=== PATIENT | female | born 1945 | race Caucasian/White ===

== ENCOUNTER 2022-12-24 08:38 | Outpatient (OUT) | payer MEDICARE, OTHER, SELFPAY ==
--- NOTE | 2022-12-24 08:55 | XR_ITS ---
The [address] [address] Patient Name: CHRIS LEVY MRN: [id number] date: 1945 Sex: F Assigned Patient Location: [facility] Current Patient Location: [facility] Accession/Order Number: [id number] Exam Date: 12/24/2022 08:55 Report Date: 12/24/2022 10:53 At the request of: NEVA FERRARI Procedure: XR knee WALTER 4V EXAM: XR knee WALTER 4V HISTORY: Bilateral Knee Pain COMPARISON: None. FINDINGS: 4 views of the right knee were obtained. There are postsurgical findings of total knee arthroplasty. Joint space is symmetric. The patella is appropriately positioned. There is corticated ossific density near the inferior margin of patella. No acute fracture or dislocation. There is evidence of joint effusion. 4 views of the left knee were obtained. There is near [id number] narrowing of the medial compartment with marginal osteophyte formation and subchondral sclerosis. Less pronounced degenerative changes noted in the lateral and patellofemoral compartments. No acute fracture or dislocation. No significant joint effusion. IMPRESSION: Postsurgical findings of right total knee arthroplasty. Corticated density along the inferior patella may represent age-indeterminate fracture. Right joint effusion. Severe osteoarthritis of the left knee with medial compartment predominance. Electronically authenticated by: THAO RODRIGES Date: 12/24/2022 10:53
== END 2022-12-24 08:39 | disposition home or self-care (01) ==
LOC: RAD 08:42
PROVIDERS: PCP Internal Medicine; Visit Provider Internal Medicine
DX: M25.561 Pain in right knee (principal); M25.562 Pain in left knee; Z96.651 Presence of right artificial knee joint; M25.461 Effusion, right knee; M17.12 Unilateral primary osteoarthritis, left knee; M22.91 Unspecified disorder of patella, right knee
CPT/HCPCS: 73564

== ENCOUNTER 2023-02-27 11:01 | Outpatient (OUT) | payer MEDICARE, OTHER, SELFPAY ==
[2023-02-27 11:26] LABS: Basophils Percent Auto 0.1 % (0.2-2.0); Hematocrit 39.9 % (36.0-48.0); Hemoglobin 13.5 g/dL (12.0-16.0); Immature Granulocytes Abs Auto 0.03 10^3/uL (0.00-0.03); Immature Granulocytes Pct Auto 0.3 % (0.0-0.5); Lymphocytes Absolute Auto 1.2 10^3/uL (1.2-3.8); Lymphocytes Percent Auto 11.8 % (20.5-60.0); Mean Corpuscular HGB Conc 33.8 g/dL (29.9-35.2); Mean Corpuscular Hemoglobin 30.7 pg (26.7-34.0); Mean Corpuscular Volume 90.7 fL (81.0-99.0); Mean Platelet Volume 10.5 fL (9.5-13.5); Monocytes Absolute Auto 0.4 10^3/uL (0.3-0.8); Monocytes Percent Auto 3.4 % (1.7-12.0); Neutrophils Absolute Auto 8.8 10^3/uL (1.4-6.5); Neutrophils Percent Auto 84.4 % (43.0-75.0); Platelet Count 230 10^3/uL (150-450); Red Cell Distribution Width 12.8 % (11.0-15.0); White Blood Count 10.4 10^3/uL (4.0-11.0)
[2023-02-27 12:30] LABS: Alanine Aminotransferase 28 U/L (14-59); Albumin Globulin Ratio 0.9; Albumin Level 4.2 g/dL (3.4-5.0); Alkaline Phosphatase 55 U/L (46-116); Anion Gap 13.1; Aspartate Amino Transferase 21 U/L (15-37); BUN Creatinine Ratio 26.4; Bilirubin Total 0.3 mg/dL (0.2-1.0); Calcium 9.2 mg/dL (8.5-10.1); Carbon Dioxide 26.3 mmol/L (21.0-32.0); Chloride 100 mmol/L (98-107); Estimated GFR (African America >60 (>=60); Estimated GFR (Non-African Ame >60 (>=60); Globulin 4.5 g/dL; Glucose 103 mg/dL (74-106); Potassium 3.4 mmol/L (3.5-5.1); Sodium 136 mmol/L (136-145); Thyroid Stimulating Hormone 0.337 uIU/mL (0.358-3.740); Total Protein 8.7 g/dL (6.4-8.2)
[2023-02-27 18:29] LABS: Free T4 1.05 ng/dL (0.76-1.46)
[2023-03-01 07:07] LABS: Triiodothyronine (T3) 76 ng/dL (71-180)
== END 2023-02-27 11:02 | disposition home or self-care (01) ==
LOC: LAB 11:03
PROVIDERS: PCP Internal Medicine; Visit Provider Internal Medicine
DX: R53.83 Other fatigue (principal); I10 Essential (primary) hypertension; Z79.899 Other long term (current) drug therapy; M81.0 Age-related osteoporosis without current pathological fracture; E55.9 Vitamin D deficiency, unspecified; R79.89 Other specified abnormal findings of blood chemistry
CPT/HCPCS: 36415; 80053; 82306; 84439; 84443; 84480; 85025

== ENCOUNTER 2023-04-16 09:04 | Outpatient (OUT) | payer MEDICARE, OTHER, SELFPAY ==
[2023-04-16 09:56] LABS: Thyroid Stimulating Hormone 1.279 uIU/mL (0.358-3.740)
[2023-04-16 10:22] LABS: Free T4 1.07 ng/dL (0.76-1.46)
[2023-04-17 08:12] LABS: Triiodothyronine (T3) 115 ng/dL (71-180)
== END 2023-04-16 09:05 | disposition home or self-care (01) ==
LOC: LAB 09:06
PROVIDERS: PCP Internal Medicine; Visit Provider Internal Medicine
DX: R79.89 Other specified abnormal findings of blood chemistry (principal)
CPT/HCPCS: 36415; 84439; 84443; 84480

== ENCOUNTER 2024-01-21 09:03 | Outpatient (OUT) | payer MEDICARE, OTHER, SELFPAY ==
--- OUTSIDE RECORDS SUMMARY | 2024-01-21 09:16 | XMS_ITS | CCD ---
Author Organization [facility] Care Team Providers Care Experience Specialist Name Role Phone Sam Rangel Unavailable Unavailable Cr Ferrari Unavailable Unavailable BALL, DR HOOKS Attending Unavailable BALL, DR HOOKS Consulting Unavailable BALL, DR HOOKS Primary Care Unavailable BALL, DR HOOKS Admitting Unavailable BALL, DR HOOKS Consulting Unavailable VONDA, DR HOOKS Primary Care Unavailable VONDA, DR HOOKS Admitting Unavailable BALL, DR HOOKS Attending Unavailable BALL, DR HOOKS Attending Unavailable BALL, DR HOOKS Consulting Unavailable BALL, DR HOOKS Primary Care Unavailable VONDA, DR HOOKS Admitting Unavailable BALL, DR HOOKS Referring Unavailable Cr Ferrari DO E Unavailable Vonda YANCEY, Cr E Unavailable IMTIAZ TILLEY Referring Unavailable BEST GUTIERREZ Attending Unavailab gonzalo TILLEY, IMTIAZ Referring Unavailable JAREK, IMTIAZ Referring Unavailable TRES PEDRAZA Attending Unavailable BEST GUTIERREZ Referring Unavailab Cr Rowan Unavailable Cr Ferrari Unavailable CR FERRARI Referring Unavailable CR FERRARI Referring Unavailable Cr Ferrari DO Primary Care Provider BRENNAN MELISSA Attending Unavailable BRENNAN MELISSA Referring Unavailable DO Cr Ferrari Primary Care Provider [phone] MD Brennan Melissa Attending Provider Cr Ferrari DO Primary Care Provider Katelynn Coker RN Unavailable Unavailable THAO JUSTIN Referring Unavailable THAO JUSTIN Attending Unavailable Vonda, Dr. Cr Mcdaniel Primary Care UnaBrennan Nolasco Attending Unavailable Brennan Melissa Admyeyo Unavailable Cr Ferrari Primary Care Unavailable THAO JUSTIN Admitting Unavailable THAO JUSTIN Attending Unavailable CR FERRARI Primary Care Unavailable THAO JUSTIN Referring Unavailable CR FERRARI Primary Care Unavailable BRANDON DONIS Referring Unavailable CR FERRARI Primary Care Unavailable BRANDON DONIS Referring Unavailable CR FERRARI Primary Care Unavailable Cr Ferrari DO Primary Care Provider THAO JUSTIN Attending Unavailable CR FERRARI Primary Care Unavailable BRANDON DONIS Referring Unavailable BRANDON DONIS Attending Unavailable CR FERRARI Primary Care Unavailable BRANDON DONIS Referring Unavailable CR FERRARI Primary Care Unavailable Medications Current Medications Medication Drug Class(es) Dates Sig (Normalized) Sig (Original) acetaminophen 325 mg oral tablet (3 sources) Start: 10-07-2023 take 1 tablet by mouth every six hours as needed Start: 10-07-2023 End: 10-07-2023 take 975 mg by mouth once as needed for pain 975 mg, oral, Once, On Thu10/07/23 at 0645, For 1 dose, Preprocedure, PREOP, If ordered PRN for pain, nurse is permitted to administer this medication for higher pain scores based on patient preference? Yes Start: 10-06-2023 End: 11-06-2023 take 2 tablets by mouth every six hours for pain acetaminophen (Tylenol Extra Strength) 500 mg tablet Indications: Unilateral primary osteoarthritis, left knee Take 2 tablets (1,000 mg) by mouth every 6 hours if needed for mild pain (1 - 3). 240 tablet 10/06/2023 11/06/2023 Active aluminum hydroxide 40 mg/ml / magnesium hydroxide 40 mg/ml / simethicone 4 mg/ml oral suspension (1 source) Start: 10-07-2023 take 20 mL by mouth every four hours as needed 20 mL, oral, Every 4 hours PRN, indigestion, heartburn, Starting on Thu10/07/23 at 1941 amLODIPine 5 mg oral tablet (20 sources) Dihydropyridine Calcium Channel Carmen Start: 02-04-2016 take 5 mg by mouth once daily Amlodipine Active 5 MG PO Daily October 23, 2017 12:00am Start: 02-04-2016 amLODIPine Bes ylate 5 MG Oral Tablet Quantity: 30 Refills: 0 Ordered: 04-Feb-2016 DO Start : 04-Feb-2016 Active take 1 tablet by susanne every twenty-four hours amLODIPine Besylate 10 MG 1 tablet Orally Once a day Active ascorbic acid 500 mg oral tablet (5 sources) Vitamin C take 1 tablet by mouth once daily ascorbic acid (Vitamin C) 500 mg tablet Take 1 tablet (500 mg) by mouth once daily. Active aspirin 81 mg delayed release oral tablet (2 sources) Platelet Aggregation Inhibitor, Nonsteroidal Anti-inflammatory Drug Start: 10-06-2023 End: 11-06-2023 take 81 mg by mouth twice daily 81 mg, oral, 2 times daily, First dose on Thu10/07/23 at 2100, Phase II/On Unit, Do not crush, chew, or split. benzocaine 15 mg / menthol 3.6 mg oral lozenge (1 source) Standardized Chemical Allergen Start: 10-07-2023 bisacodyl 10 mg rectal suppository (2 sources) Stimulant Laxative Start: 10-07-2023 take 10 mg rectal route every twenty-four hours as needed Start: 10-07-2023 take 1 tablet by mouth every t wenty-four hours as needed chlorhexidine gluconate 1.2 mg/ml mouthwash (3 sources) Start: 09-30-2023 End: 10-08-2023 chlorhexidine (Peridex) 0.12 % solution Indications: Preoperative testing Use 15 mL in the mouth or throat if needed (pre operative 15ml swish and spit the night befor and morning of surgery) for up to 2 doses. 30 mL 09/30/2023 10/08/2023 Discontinued (Stop Taking at Discharge) cholecalciferol 0.025 mg oral capsule (5 sources) Vitamin D take 1 capsule by mouth once daily cholecalciferol (Vitamin D-3) 25 MCG (1000 UT) capsule Take 1 capsule (25 mcg) by mouth once daily. Active cyclobenzaprine hydrochloride 10 mg oral tablet (1 source) Muscle Relaxant Start: 10-07-2023 1 ml denosumab 60 mg/ml prefilled syringe (20 sources) RANK Ligand Inhibitor denosumab (Prolia) 60 mg/mL syringe Inject 1 mL (60 mg total) under the skin every 6 months. 2023 Active denosumab (PROLI A SUBCUTANEOUS) Inject subcutaneously. 0 Active Comment on above: Inject subcutaneousl y. diphenhydrAMINE (1 source) Histamine-1 Receptor Antagonist Start: 2023 take 12.5 mg intravenously every six hours as needed docusate sodium 100 mg oral capsule (2 sources) Start: 2023 End: 2023 take 100 mg by mouth twice daily for constipation 100 mg, oral, 2 times daily, First dose on Thu10/07/23 at 2100, Phase II/On Unit, Bowel Regimen - for prevention of constipation Hold for loose stools estrogens, conjugated (long term) 0.625 mg/ml vaginal cream (20 sources) Estrogen Start: 2023 Conjugated Estrogens (Premarin) 0.625 mg/gram cream Active 0.625 MG VAGINAL Twice a Week January 15, 2024 12:00am Start: 09-03-2015 Premarin 0.625 MG/GM Vaginal Cream Quantity: 30 Refills: 0 Start : 03-Sep-2015 Active Start: 09-03-2015 Premarin 0.625 MG/GM Vaginal Cream Quantity: 30 Refills: 0 Ordered: 03-Sep-2015 DO Start : 03-Sep-2015 Active Premarin 0.625 M G/GM Vaginal Active estrogens, conju gated (PREMARIN VAGINAL) Use vaginally. 0 Active Comment on above: Use vaginally. 0.5 ml HYDROmorphone hydrochloride 1 mg/ml prefilled syringe (1 source) Opioid Agonist Start: 10-07-19 ibuprofen 200 mg oral tablet (3 sources) Nonsteroidal Anti-inflammatory Drug End: 10-08-19 take 2 tablets by mouth every six hours as needed ibuprofen 200 mg tablet Take 2 tablets (400 mg) by mouth every 6 hours if needed for mild pain (1 - 3). 10/08/2023 Discontinued (Stop Taking at Discharge) melatonin 3 mg oral tablet (1 source) Start: 10-07-19 take 3 mg by mouth once daily as needed for sleep 3 mg, oral, Nightly PRN, sleep, Starting on Thu10/07/23 at 1941 Metoclopramide (1 source) Dopamine-2 Receptor Antagonist Start: 10-07-19 take 1 tablet by mouth every six hours as needed metoclopramide (Reglan) tablet 10 mg Naloxone (1 source) Opioid Antagonist Start: 10-07-19 ondansetron ODT (Zofran-ODT) disintegrating tablet 4 mg (1 source) Start: 10-07-19 take 1 tablet by mouth every eight hours as needed ondansetron ODT (Zofran-ODT) disintegrating tablet 4 mg oxyCODONE hydrochloride 5 mg oral tablet (4 sources) Opioid Agonist Start: 10-07-19 take 1 tablet by mouth every four hours as needed 2.5 mg, oral, Every 4 hours PRN, pain moderate (4-6), first line, Starting on Thu10/07/23 at 1608, Phase II/On Unit, If ordered PRN for pain, nurse is permitted to administer this medication for higher pain scores based on patient preference? Yes Start: 10-07-2023 take 1 tablet by susanne th every four hours as needed 5 mg, oral, Every 4 hours PRN, pain severe (7-10), first line, Starting on Thu10/07/23 at 1607, Phase II/On Unit, If ordered PRN for pain, nurse is permitted to administer this medication for higher pain scores based on patient preference? Yes Start: 10-07-2023 End: 10-07-2023 take 10 mg by mouth once 10 mg, oral, Once, On Thu at 0645, For 1 dose, Preprocedure, Do not crush, chew, or split. Start: 10-06-2023 End: 10-14-2023 take 1 tablet by mouth every six hours for pain oxyCODONE (Roxicodone) 5 mg immediate release tablet Indications: Unilateral primary osteoarthritis, left knee Take 1 tablet (5 mg) by mouth every 6 hours if needed for severe pain (7 - 10) for up to 7 days. 28 tablet 10/06/2023 10/14/2023 Active oxygen (O2) therapy (1 source) Start: 10-07-2023 pantoprazole 40 mg delayed release oral tablet (3 sources) Proton Pump Inhibitor Start: 10-06-2023 End: 11-06-2023 take 1 tablet by mouth once daily pantoprazole (ProtoNix) 40 mg EC tablet Indications: Unilateral primary osteoarthritis, left knee Take 1 tablet (40 mg) by mouth once daily. Do not crush, chew, or split. 30 tablet 10/06/2023 Active paxlovid (300/100) 20 x 150 mg & 10 x 100mg tablet therapy pack (1 source) Start: 06-23-2023 Paxlovid (300/ 100) 20 x 150 MG & 10 x 100MG as directed Orally bid for 5 days Jun, Active polyethylene glycol 3350 24266 mg powder for oral solution (4 sources) Osmotic Laxative Start: 10-08-2023 17 g, oral, D aily, First dose on Thu10/08/23 at 0900, Phase II/On Unit, Bowel Regimen - for prevention of constipation. Start: 10-06-2023 polyethylene g lycol (Glycolax, Miralax) 17 gram/dose powder Indications: Unilateral primary osteoarthritis, left knee Mix 1 cap (17g) into 8 ounces of fluid and drink by mouth once daily. 238 g 10/06/2023 Active polyvinyl alcohol 0.014 ml/ml / povidone 6 mg/ml ophthalmic solution (1 source) Start: 10-07-2023 1 drop, Both E yes, As needed, dry eyes, Starting on Thu10/07/23 at 1941 predniSONE 1 mg oral tablet (15 sources) Start: 03-26-2022 End: 09-30-2023 take 4 tablets by mouth once daily, then take 3 tablets by mouth once daily, then take 2 tablets by mouth once daily, then take 1 tablet by mouth once daily predniSONE (DELTASONE) 1 mg tablet Take 4 tablets by mouth once daily for 30 days, THEN 3 tablets once daily for 30 days, THEN 2 tablets once daily for 30 days, THEN 1 tablet once daily. 300 tablet 0 03/26/2022 07/24/2022 Active Start: 02-04-2022 End: 09-30-2023 take 3 tablets by mouth once daily, then take 2.5 tablets by mouth once daily, then take 2 tablets by mouth once daily, then take 1.5 tablets by mouth once daily, then take 1 tablet by mouth once daily predniSONE (DELTASONE) 5 mg tablet Indications: Polymyalgia rheumatica (HCC) Take 3 tablets by mouth once daily for 7 days, THEN 2.5 tablets once daily for 7 days, THEN 2 tablets once daily for 7 days, THEN 1.5 tablets once daily for 7 days, THEN 1 tablet once daily. 93 tablet 0 02/04/2022 04/03/2022 Active Start: 01-14-2021 End: 01-15-2024 take 20 mg by mouth twice daily Prednisone Discontinue d 20 MG PO Twice daily 10 January 14, 2021 12:00am January 15, 2024 10:23am End: 09-30-2023 predniSONE (Deltasone) 10 mg tablet 09/30/2023 Discontinued (Therapy completed) Comment on above: Take 3 tablets by [facility] once daily for 7 days, THEN 2.5 tablets once daily for 7 days, THEN 2 tablets once daily for 7 days, THEN 1.5 tablets once daily for 7 days, THEN 1 tablet once daily. Take 4 tablets by [facility] once daily for 30 days, THEN 3 tablets once daily for 30 days, THEN 2 tablets once daily for 30 days, THEN 1 tablet once daily. TAKE 4 TABLETS BY [facility] ONCE DAILY FOR 30 DAYS,THEN TAKE 3 TABS ONCE DAILY FOR 30 DAYS, THEN TAKE 2 TABS ONCE DAILY FOR 30 DAYS, THEN TAKE 1 TAB ONCE DAILY FOR 30 DAYS 72 hr scopolamine 0.0139 mg/hr transdermal system (1 source) Anticholinergic Start: 10-07-19 End: 10-10-19 1 patch, transdermal, Administer over 72 Hours, Every 72 hours, First dose on Thu10/07/23 at 0645, For 1 dose, Preprocedure, PREOP Apply to hairless area of skin behind the ear. simethicone 80 mg chewable tablet (1 source) Start: 10-07-19 take 80 mg by mouth four times daily as needed 80 mg, oral, 4 times daily PRN, flatulence, Starting on Thu10/07/23 at 1940 sodium chloride 0.111 meq/ml nasal spray (1 source) Start: 10-07-19 1 spray, Each Nostril, As needed, congestion, Starting on Thu10/07/23 at 194 traMADol hydrochloride 50 mg oral tablet (1 source) Opioid Agonist Start: 10-06-19 End: 10-14-19 take 1 tablet by mouth every six hours for pain traMADol (Ultram) 50 mg tablet Indications: Unilateral primary osteoarthritis, left knee Take 1 tablet (50 mg) by mouth every 6 hours if needed for severe pain (7 - 10) for up to 7 days. 28 tablet 10/06/2023 10/14/2023 Active Completed/Discontinued Medications Medication Drug Class(es) Dates Sig (Normalized) Sig (Original) acetaminophen 325 mg / oxyCODONE hydrochloride 5 mg oral tablet (2 sources) Opioid Agonist Start: 10-29-2017 End: 11-05-2017 take 1 tablet by mouth every four to six hours Oxycodone-Acetamino phen (Percocet) 5-325 mg tablet Discontinued 1 - 2 TAB PO EVERY 4-6 HOURS 56 October 29, 2017 November 05, 2017 12:01am alendronic acid 70 mg oral tablet (4 sources) Bisphosphonate Start: 09-03-2015 Alendronate Sodium 70 MG Oral Tablet Quantity: 12 Refills: 0 Ordered: 03-Sep-2015 DO Start : 03-Sep-2015 Active Start: 09-03-2015 Alendronate So dium 70 MG Oral Tablet Quantity: 12 Refills: 0 Start : 03-Sep-2015 Active benzonatate 200 mg oral capsule (2 sources) Non-narcotic Antitussive Start: 08-08-2022 End: 09-30-2023 take 1 capsule by mouth three times daily benzonatate (Tessalon) 200 mg capsule Take 1 capsule 3 times a day by oral route. 08/08/2022 09/30/2023 Discontinued (Therapy completed) calcium chloride 0.0014 meq/ml / potassium chloride 0.004 meq/ml / sodium chloride 0.103 meq/ml / sodium lactate 0.028 meq/ml injectable solution (2 sources) Start: 10-07-2023 End: 10-08-2023 take 100 mL intravenously every hour 100 mL/hr, intravenous, Continuous, Starting on Thu10/07/23 at 1200, For 24 hours, Phase II/On Unit ceFAZolin 2000 mg injection (1 source) Cephalosporin Antibacterial Start: 10-07-2023 End: 10-08-2023 take 2 g intravenously every eight hours 2 g, intravenous, Administer over 30 Minutes, Every 8 hours, First dose on Thu10/07/23 at 1700, For 2 doses, Phase II/On Unit, Start 8 hours after pre-op dose given. premix bag, Dosing of this medication varies based on severity of illness. Does this patient have sepsis or concern for sepsis (probable or documented infection plus systemic manifestations of infection)? No, Suspected Indication (Select all that apply): Surgical Prophylaxis cephalexin 500 mg oral capsule (2 sources) Cephalosporin Antibacterial Start: 01-14-2021 End: 01-15-2024 take 1000 mg by mouth twice daily Cephalexin Discontinued 1000 MG PO Twice daily 40 January 14, 2021 12:00am January 15, 2024 10:23am diclofenac sodium 75 mg delayed release oral tablet (4 sources) Nonsteroidal Anti-inflammatory Drug Start: 09-05-2015 Diclofenac Sodium 75 MG Oral Tablet Delayed Release Quantity: 60 Refills: 0 Ordered: 05-Sep-2015 DO Start : 05-Sep-2015 Active Start: 09-05-2015 Diclofenac Sod ium 75 MG Oral Tablet Delayed Release Quantity: 60 Refills: 0 Start : 05-Sep-2015 Active 1 ml fentaNYL 0.05 mg/ml injection (1 source) Opioid Agonist Start: 10-07-2023 End: 10-07-2023 50 mcg, intravenous, Once as needed, pain for/from pre-op block, Starting on Thu10/07/23 at 0707, For 1 dose, Preprocedure hydrocortisone 25 mg/ml topical cream (2 sources) Corticosteroid End: 09-30-2023 hydrocortisone 2.5 % cream APPLY CREAM TOPICALLY TO AFFECTED AREA(S) THREE TIMES DAILY FOR 7 DAYS 09/30/2023 Discontinued (Therapy completed) 1 ml ketorolac tromethamine 15 mg/ml injection (1 source) Nonsteroidal Anti-inflammatory Drug, Cyclooxygenase Inhibitor Start: 10-07-2023 End: 10-08-2023 take 15 mg intravenously every six hours 15 mg, intravenous, Every 6 hours, First dose on Thu10/07/23 at 1200, For 4 doses, Phase II/On Unit, Do not administer within 6 hours of other NSAIDs (such as ibuprofen or naproxen). Lagevrio, EUA, 200 mg capsule (2 sources) Start: 08-08-2022 End: 09-30-2023 take 4 capsules by mouth every twelve hours Lagevrio, EUA, 200 mg capsule Take 4 capsules every 12 hours by oral route for 5 days. 08/08/2022 09/30/2023 Discontinued (Therapy completed) Start: 08-08-2022 take 4 capsules by m outh every twelve hours Lagevrio, EUA, 200 mg capsule Take 4 capsules every 12 hours by oral route for 5 days. 0 08/08/2022 Active Lidocaine (2 sources) Antiarrhythmic, Amide Local Anesthetic Start: 06-11-2023 End: 06-11-2023 lidocaine (Xylocaine) 10 mg/mL (1 %) injection 4 mL losartan potassium 25 mg oral tablet (4 sources) Angiotensin 2 Receptor Carmen Start: 10-26-2015 Losartan Potassium 2 5 MG Oral Tablet Quantity: 30 Refills: 0 Ordered: 26-Oct-2015 DO Start : 26-Oct-2015 Active Start: 10-26-2015 Losartan Potas sium 25 MG Oral Tablet Quantity: 30 Refills: 0 Start : 26-Oct-2015 Active meloxicam 7.5 mg oral tablet (2 sources) Nonsteroidal Anti-inflammatory Drug Start: 10-07-2023 End: 10-07-2023 take 7.5 mg by mouth once as needed for pain 7.5 mg, oral, Once, On Thu10/07/23 at 0645, For 1 dose, Preprocedure, PREOP, If ordered PRN for pain, nurse is permitted to administer this medication for higher pain scores based on patient preference? Yes Start: 10-06-2023 End: 11-06-2023 take 1 tablet by mouth once daily meloxicam (Mobic) 15 mg tablet Indications: Unilateral primary osteoarthritis, left knee Take 1 tablet (15 mg) by mouth once daily. 30 tablet 10/06/2023 11/06/2023 Active 5 ml midazolam 1 mg/ml injection (1 source) Benzodiazepine Start: 10-07-2023 End: 10-07-2023 2 mg, intravenous, Once, On Thu10/07/23 at 0730, For 1 dose, Preprocedure Start: 10-07-2023 End: 10-07-2023 2 mg, intravenous, Once, On Thu10/07/23 at 0730, For 1 dose, Preprocedure povidone-iodine 50 mg/ml topical solution (1 source) Antiseptic Start: 10-07-2023 End: 10-07-2023 Topical, Once, On Thu10/07/23 at 0645, For 1 dose, Preprocedure, Apply to both nostrils 1 hour prior to procedure. pregabalin 75 mg oral capsule (1 source) Start: 10-07-2023 End: 10-07-2023 take 75 mg by mouth once 75 mg, oral, Once, On Thu10/07/23 at 0645, For 1 dose, Preprocedure, PREOP tranexamic acid 650 mg oral tablet (1 source) Antifibrinolytic Agent Start: 10-07-2023 End: 10-07-2023 take 1 dose by mouth every six hours 1,950 mg, oral, Once, On Thu10/07/23 at 1600, For 1 dose, Recovery & On Unit, First dose administered 6 hours post procedure. Do not crush, chew, or split., Tranexamic Acid Indication: Surgical Prophylaxis: Orthopedic 1 ml triamcinolone acetonide 40 mg/ml injection (6 sources) Corticosteroid Start: 06-11-2023 End: 06-11-2023 triamcinolone acetonide (Kenalog-40) injection 1 mL Start: 11-16-2015 Triamcinolone Acetonide 0.025 % External Cream Quantity: 15 Refills: 0 Ordered: 16-Nov-2015 DO Start : 16-Nov-2015 Active Start: 11-16-2015 Triamcinolone Acetonide 0.025 % External Cream Quantity: 15 Refills: 0 Start : 16-Nov-2015 Active Problems Active Problems Problem Classification Problem Date Documented Da te Episodic/Chronic Diabetes mellitus without complication (2 sources) Hyperglycemia, unspecified; Translations: [Hyperglycemia, unspecified] Onset: 09-30-2023 Episodic Disorders of lipid metabolism (11 sources) Familial hypercholesterolemi a; Translations: [Hyperlipidemia, group A] Onset: 04-15-2021 Chronic Essential hypertension (16 sources) Essential (primary) hypertension; Translations: [Essential hypertension] Onset: 04-08-2021 Chronic Genitourinary symptoms and ill-defined conditions (1 source) Dysuria; Translations: [Dysuria] Onset: 09-23-2023 Episodic Malaise and fatigue (3 sources) Other fatigue; Translations: [Other malaise] Onset: 10-24-2021 Episodic Nutritional deficiencies (12 sources) Vitamin D deficiency, unspecified; Translations: [Vitamin D deficiency] Onset: 10-24-2021 Chronic Osteoarthritis (20 sources) Primary gonarthrosis, bilateral; Translations: [Osteoarthritis of left knee joint] Onset: 06-11-2023 Chronic Osteoporosis (12 sources) Osteoporosis; Translations: [Age-related osteoporosis without current pathological fracture] Chronic Other acquired deformities (10 sources) Flip legged; Translations: [Varus deformity, not elsewhere classified, left knee] Episodic Other acquired deformities (1 source) Varus deformity, not elsewhere classified, left knee Episodic Other aftercare (4 sources) Patient encounter status; Translations: [Aftercare following joint replacement] 11-17-2023 Chronic Other aftercare (2 sources) Aftercare following joint replacement surgery; Translations: [Aftercare following joint replacement surgery] Onset: 06-11-2023 Chronic Other aftercare (1 source) Long-term current use of systemic steroid; Translations: [half-way (current) use of systemic steroids] Episodic Other aftercare (1 source) Other oysterman (current) drug therapy Episodic Other connective tissue disease (12 sources) Polymyalgia rheumatica; Translations: [Polymyalgia rheumatica] Chronic Other connective tissue disease (1 source) Polymyalgia rheumatica; Translations: [Polymyalgia rheumatica (HCC)] Onset: 02-04-2022 Chronic Other connective tissue disease (11 sources) History of total knee arthroplasty; Translations: [Presence of right artificial knee joint] 10-07-2023 Chronic Other connective tissue disease (3 sources) Presence of right artificial knee joint; Translations: [Presence of right artificial knee joint] Onset: 06-11-2023 Chronic Other connective tissue disease (4 sources) Presence of left artificial knee joint; Translations: [Presence of left artificial knee joint] Onset: 10-07-2023 Chronic Other connective tissue disease (4 sources) Myalgia, unspecified site; Translations: [MYALGIA UNSPECIFIED SITE] Onset: 10-23-2021 Episodic Other connective tissue disease (10 sources) Muscle pain; Translations: [Myalgia, unspecified site] Episodic Other fractures (2 sources) Fracture of rib; Translations: [Fracture of one rib, unspecified side, initial encounter for closed fracture] 10-28-2017 Episodic Other injuries and conditions due to external causes (2 sources) Traumatic injury; Translations: [Injury, unspecified, initial encounter] 10-23-2017 Episodic Other nervous system disorders (1 source) Bilateral carpal tunnel syndrome; Translations: [Carpal tunnel syndrome, bilateral upper limbs] Chronic Other nervous system disorders (10 sources) Carpal tunnel syndrome; Translations: [Carpal tunnel syndrome, bilateral upper limbs] Chronic Other nervous system disorders (10 sources) Chronic pain; Translations: [Other chronic pain] Chronic Other nervous system disorders (1 source) Other chronic pain Chronic Other nervous system disorders (2 sources) Paresthesia of hand ; Translations: [Anesthesia of skin] Episodic Other non-traumatic joint disorders (2 sources) Arthritis of knee; Translations: [Arthritis of right knee] Chronic Other non-traumatic joint disorders (2 sources) Knee pain; Translations: [Bilateral knee pain] Episodic Other non-traumatic joint disorders (10 sources) Pain in left knee; Translations: [Pain in left knee] Episodic Other non-traumatic joint disorders (3 sources) Pain in right knee; Translations: [Bilateral knee pain] Episodic Other nutritional; endocrine; and metabolic disorders (1 source) Abnormal weight loss Episodic Other screening for suspected conditions (not mental disorders or infectious disease) (4 sources) Other specified abnormal findings of blood chemistry; Translations: [Encounter for screening mammogram for malignant neoplasm of breast] Episodic Pleurisy; pneumothorax; pulmonary collapse (2 sources) Left pneumothorax; Translations: [Pneumothorax, unspecified] 10-23-2017 Episodic Residual codes; unclassified (1 source) Asymptomatic menopausal state Episodic Skin and subcutaneous tissue infections (2 sources) Cellulitis; Translations: [Cellulitis, unspecified] 01-14-2021 Episodic Unclassified (7 sources) Patient has total joint replacement knee surgery Onset: 08-03-2023 08-03-2023 Unclassified (2 sources) Patient Education; Translations: [Patient Education] Onset: 09-30-2023 Unclassified (2 sources) Durable Medical Equipment; Translations: [Durable Medical Equipment] Onset: 09-30-2023 Past or Other Problems Problem Classification Problem Date Documented Da te Episodic/Chronic Other nervous system disorders (1 source) Anesthesia of skin; Translations: [Numbness and tingling in both hands] Onset: 03-05-2022 Episodic Other nervous system disorders (1 source) Paresthesia of skin; Translations: [Numbness and tingling in both hands] Onset: 03-05-2022 Episodic Poisoning by other medications and drugs (4 sources) Poisoning by vitamins, accidental (unintentional), initial encounter; Translations: [POISON VITAMINS ACC INITIAL ENCNTR] Onset: 11-06-2020 Episodic Unclassified (2 sources) Patient encounter status; Translations: [Aftercare following right knee joint replacement surgery] Viral infection (1 source) COVID-19 Results Test Name Value Interpretation Reference Range Facility XR KNEE LEFT 3 VIEWSon 11-18 XR KNEE LEFT 3 VIEWS Interpreted By: Leandro Trinidad, STUDY: XR KNEE LEFT 3 VIEWS; ; 11/19/2023 12:24 pm INDICATION: Signs/Symptoms:pain . COMPARISON: 09/30/2023 ACCESSION NUMBER(S): [id number] ORDERING CLINICIAN: BRANDON DONIS FINDINGS: Three views of the left knee. Total left knee arthroplasty. No perihardware lucency or fracture to suggest failure. Moderate suprapatellar joint effusion. No acute fracture. No dislocation IMPRESSION: Uncomplicated appearance of the total left knee arthroplasty. Moderate suprapatellar joint effusion. MACRO: None Signed by: Leandro Trinidad 11/20/2023 9:43 AM Dictation workstation: [id number] [facility] Basic metabolic 2000 panelon 10-08-2023 Anion gap [Moles/Vol] 10 mmol/L Normal 10-20 [facility] Comment on above: Performed By: #### 2 4321-2 #### JAMIN Crowe ([id number] [place] [address] [place] [address] Calcium [Mass/Vol] 8.6 mg/dL Normal 8.6-10.3 [facility] Comment on above: Performed By: #### 2 4321-2 #### JAMIN Crowe ([id number]) [facility] [place] [address] [address] [place] [address] Chloride [Moles/Vol] 102 mmol/L Normal 98-107 [facility] Comment on above: Performed By: #### 2 4321-2 #### JAMIN Crowe ([id number]) [facility] [address] [place] [address] CO2 [Moles/Vol] 27 mmol/L Normal 21-32 [facility] Comment on above: Performed By: #### 2 4321-2 #### JAMIN Crowe ([id number]) [facility] [place] [place] [address] Creatinine [Mass/Vol] 0.70 mg/dL Normal 0.50-1.05 [facility] Comment on above: Performed By: #### 2 4321-2 #### JAMIN Crowe ([id number]) [facility] ([facility] [address] [place] [address] Glomerular filtration rate/1.73 sq M.predicted 89 mL/min/1.73m*2 Normal >60 [facility] Comment on above: Result Comment: Calc ulations of estimated GFR are performed using the 2020 CKD-EPI Study Refit equation without the race variable for the IDMS-Traceable creatinine methods. https://jasn.asnjournals.org/content/early//ASN.06569 34979 Performed By: #### 2 4321-2 #### JAMIN Crowe ([id number]) [facility] ([facility] [address] [place] [address] Glucose [Mass/Vol] 107 mg/dL High 74-99 [facility] Comment on above: Performed By: #### 2 4321-2 #### JAMIN Crowe ([id number]) [facility] ([facility] [address] [place] [address] Potassium [Moles/Vol] 4.0 mmol/L Normal 3.5-5.3 [facility] Comment on above: Performed By: #### 2 4321-2 #### JAMIN Crowe ([id number]) [facility] ([facility] [address] [place] [address] Sodium [Moles/Vol] 135 mmol/L Low 136-145 [facility] Comment on above: Performed By: #### 2 4321-2 #### JAMIN Crowe ([id number]) [facility] ([facility] [address] [place] [address] Urea nitrogen [Mass/Vol] 20 mg/dL Normal 6-23 [facility] Comment on above: Performed By: #### 2 4321-2 #### JAMIN Crowe ([id number]) [facility] ([facility] [address] [place] [address] Anion gap [Moles/Vol] 10 mmol/L 10 - 20 mmol/L [facility] Calcium [Mass/Vol] 8.6 mg/dL 8.6 - 10. 3 mg/dL [facility] Chloride [Moles/Vol] 102 mmol/L 98 - 10 7 mmol/L [facility] CO2 [Moles/Vol] 27 mmol/L 21 - 32 mmol/L [facility] Creatinine [Mass/Vol] 0.70 mg/dL 0.50 - 1.05 mg/dL [facility] GFR/1.73 sq M.predicted among non-blacks MDRD (S/P/Bld) [Vol rate/Area] 89 mL/min/{1.73_m2} - PINF [facility] Comment on above: Calculations of mitchel mated GFR are performed using the 2020 CKD-EPI Study Refit equation without the race variable for the IDMS-Traceable creatinine methods. https://jasn.asnjournals.org/content/early/ASN.37764 46168 Glucose [Mass/Vol] 107 mg/dL High 74 - 99 mg/dL [facility] Interpretation and review of laboratory results Abnormal [facility] Potassium [Moles/Vol] 4.0 mmol/L 3.5 - 5.3 mmol/L [facility] Sodium [Moles/Vol] 135 mmol/L Low 136 - 145 mmol/L [facility] Urea nitrogen [Mass/Vol] 20 mg/dL 6 - 23 mg/dL [facility] CBC panel Auto (Bld)on 10-07 Erythrocyte distribution width (RBC) [Ratio] 12.5 % Normal 11.5-14.5 [facility] Comment on above: Performed By: #### 5 8410-2 #### JAMIN Crowe ([id number]) [facility] ([facility] [address] [place] [address] Hematocrit (Bld) [Volume fraction] 32.9 % Low 36.0-46.0 [facility] Comment on above: Performed By: #### 5 8410-2 #### JAMIN Crowe ([id number]) [facility] ([facility] [address] [place] [address] Hemoglobin (Bld) [Mass/Vol] 10.5 g/dL Low 12.0-16.0 [facility] Comment on above: Performed By: #### 5 8410-2 #### JAMIN Crowe ([id number]) [facility] ([place]) [address] [place] [address] MCH (RBC) [Entitic mass] 30.4 pg Normal 26.0-34.0 [facility] Comment on above: Performed By: #### 5 8410-2 #### JAMIN Crowe ([id number]) [facility] ([place]) [address] [place] [address] MCHC (RBC) [Mass/Vol] 31.9 g/dL Low 32.0-36.0 [facility] Comment on above: Performed By: #### 5 8410-2 #### JAMIN Crowe ([id number]) [facility] ([facility] [address] [place] [address] MCV (RBC) [Entitic vol] 95 fL Normal 80-100 [facility] Comment on above: Performed By: #### 5 8410-2 #### JAMIN Crowe ([id number]) [facility] ([facility] [address] [place] [address] Nucleated RBC/100 WBC (Bld) [Ratio] Normal [facility] Comment on above: Result Comment: Not Measured Performed By: #### 5 8410-2 #### JAMIN Crowe ([id number]) [facility] ([place]) [address] [place] [address] Platelets (Bld) [#/Vol] 153 x10*3/uL Normal 150-450 [facility] Comment on above: Performed By: #### 5 8410-2 #### JAMIN Crowe ([id number]) [facility] ([place]) [address] [place] [address] RBC (Bld) [#/Vol] 3.45 x10*6/uL Low 4.00-5.20 [facility] Comment on above: Performed By: #### 5 8410-2 #### JAMIN Crowe ([id number]) [facility] ([place]) [address] [place] [address] WBC (Bld) [#/Vol] 9.8 x10*3/uL Normal 4.4-11.3 [facility] Comment on above: Performed By: #### 5 8410-2 #### JAMIN Crowe ([id number]) [facility] ([place]) [address] [place] [address] Erythrocyte distribution width (RBC) [Ratio] 12.5 % 11.5 - 14.5 % [facility] Hematocrit (Bld) [Volume fraction] 32.9 % Low 36.0 - 46.0 % [facility] Hemoglobin (Bld) [Mass/Vol] 10.5 g/dL Low 12.0 - 16.0 g/dL [facility] Interpretation and review of laboratory results Abnormal [facility] MCH (RBC) [Entitic mass] 30.4 pg 26.0 - 34.0 pg [facility] MCHC (RBC) [Mass/Vol] 31.9 g/dL Low 32.0 - 36.0 g/dL [facility] MCV (RBC) [Entitic vol] 95 fL 80 - 100 fL [facility] Nucleated RBC/100 WBC (Bld) [Ratio] [facility] Comment on above: Not Measured Platelets (Bld) [#/Vol] 153 10*3/uL [facility] RBC (Bld) [#/Vol] 3.45 10*6/uL Low [facility] WBC (Bld) [#/Vol] 9.8 10*3/uL [facility] Basic metabolic 2000 panelon 09-30-2023 Anion gap [Moles/Vol] 13 mmol/L Normal 10-20 [facility] Comment on above: Performed By: #### 2 4321-2 #### JAMIN Crowe ([id number]) [facility] ([place]) [address] [place] [address] Calcium [Mass/Vol] 9.7 mg/dL Normal 8.6-10.3 [facility] Comment on above: Performed By: #### 2 4321-2 #### JAMIN Crowe ([id number]) [facility] ([place]) [address] [place] [address] Chloride [Moles/Vol] 103 mmol/L Normal 98-107 [facility] Comment on above: Performed By: #### 2 4321-2 #### JAMIN Crowe ([id number]) [facility] ([facility] [address] [place] [address] CO2 [Moles/Vol] 29 mmol/L Normal 21-32 [facility] Comment on above: Performed By: #### 2 432-2 #### JAMIN Crowe ([id number]) [facility] ([facility] [address] [place] [address] Creatinine [Mass/Vol] 0.62 mg/dL Normal 0.50-1.05 [facility] Comment on above: Performed By: #### 2 432-2 #### JAMIN Crowe ([id number]) [facility] ([facility] [address] [place] [address] GFR/1.73 sq M.predicted MDRD (S/P/Bld) [Vol rate/Area] mL/min/{1.73_m2} Normal >60 [facility] Comment on above: Result Comment: Calc ulations of estimated GFR are performed using the 2020 CKD-EPI Study Refit equation without the race variable for the IDMS-Traceable creatinine methods. https://jasn.asnjournals.org/content/early//ASN.85561 50426 Performed By: #### 2 4321-2 #### JAMIN Crowe ([id number]) [facility] ([place]) [address] [place] [address] Glucose [Mass/Vol] 93 mg/dL Normal 74-99 [facility] Comment on above: Performed By: #### 2 432-2 #### JAMIN Crowe ([id number]) [facility] ([place]) [address] [place] [address] Potassium [Moles/Vol] 4.3 mmol/L Normal 3.5-5.3 [facility] Comment on above: Performed By: #### 2 4321-2 #### JAMIN Crowe ([id number]) [facility] ([place]) [address] [place] [address] Sodium [Moles/Vol] 141 mmol/L Normal 136-145 [facility] Comment on above: Performed By: #### 2 4321-2 #### JAMIN Crowe ([id number]) [facility] ([place]) [address] [place] [address] Urea nitrogen [Mass/Vol] 16 mg/dL Normal 6-23 [facility] Comment on above: Performed By: #### 2 4321-2 #### JAMIN Crowe ([id number]) [facility] ([place]) [address] [place] [address] CBC W Auto Differential pane l (Bld)on 09-30-2023 Basophils (Bld) [#/Vol] 0.02 x10*3/uL Normal 0.00-0.10 [facility] Comment on above: Performed By: #### 5 7021-8 #### JAMIN Crowe ([id number]) [facility] ([place]) [address] [place] [address] Basophils/100 WBC (Bld) 0.3 % Normal 0.0-2.0 [facility] Comment on above: Performed By: #### 5 7021-8 #### JAMIN Crowe ([id number]) [facility] ([place]) [address] [place] [address] Eosinophils (Bld) [#/Vol] 0.03 x10*3/uL Normal 0.00-0.40 [facility] Comment on above: Performed By: #### 5 7021-8 #### JAMIN Crowe ([id number]) [facility] ([place]) [address] [place] [address] Eosinophils/100 WBC (Bld) 0.4 % Normal 0.0-6.0 [facility] Comment on above: Performed By: #### 5 7021-8 #### JAMIN Crowe ([id number]) [facility] ([facility] [address] [place] [address] Erythrocyte distribution width (RBC) [Ratio] 12.6 % Normal 11.5-14.5 [facility] Comment on above: Performed By: #### 5 7021-8 #### JAMIN Crowe ([id number]) [facility] ([facility] [address] [place] [address] Hematocrit (Bld) [Volume fraction] 41.0 % Normal 36.0-46.0 [facility] Comment on above: Performed By: #### 5 7021-8 #### JAMIN Crowe ([id number]) [facility] [address] [place], [place] [address] Hemoglobin (Bld) [Mass/Vol] 13.0 g/dL Normal 12.0-16.0 [facility] Comment on above: Performed By: #### 5 7021-8 #### JAMIN Crowe ([id number]) [facility] [place] [address] Immature granulocytes (Bld) [#/Vol] 0.00 x10*3/uL Normal 0.00-0.50 [facility] Comment on above: Performed By: #### 5 7021-8 #### JAMIN Crowe ([id number]) [facility] ([facility] [address] [place] [phone] Immature granulocytes/100 WBC (Bld) 0.0 % Normal 0.0-0.9 [facility] Comment on above: Result Comment: Luz ture Granulocyte Count (IG) includes promyelocytes, myelocytes and metamyelocytes but does not include bands. Percent differential counts (%) should be interpreted in the context of the absolute cell counts (cells/UL). Performed By: #### 5 7021-8 #### JAMIN Crowe ([id number] [address] [place] [address] Lymphocytes (Bld) [#/Vol] 1.79 x10*3/uL Normal 0.80-3.00 [facility] Comment on above: Performed By: #### 5 7021-8 #### JAMIN Crowe ([id number]) [facility] ([place]) [address] [place] [address] Lymphocytes/100 WBC (Bld) 22.9 % Normal 13.0-44.0 [facility] Comment on above: Performed By: #### 5 7021-8 #### JAMIN Crowe ([id number]) [facility] ([facility] [address] [place] [address] MCH (RBC) [Entitic mass] 30.4 pg Normal 26.0-34.0 [facility] Comment on above: Performed By: #### 5 7021-8 #### JAMIN Crowe ([id number]) [facility] ([place]) [address] [place] [address] MCHC (RBC) [Mass/Vol] 31.7 g/dL Low 32.0-36.0 [facility] Comment on above: Performed By: #### 5 7021-8 #### JAMIN Crowe ([id number]) [facility] ([facility] [address] [place] [address] MCV (RBC) [Entitic vol] 96 fL Normal 80-100 [facility] Comment on above: Performed By: #### 5 7021-8 #### JAMIN Crowe ([id number]) [facility] ([place]) [address] [place] [address] Monocytes (Bld) [#/Vol] 0.36 x10*3/uL Normal 0.05-0.80 [facility] Comment on above: Performed By: #### 5 7021-8 #### JAMIN Crowe ([id number]) [facility] ([facility] [address] [place] [address] Monocytes/100 WBC (Bld) 4.6 % Normal 2.0-10.0 [facility] Comment on above: Performed By: #### 5 7021-8 #### JAMIN Crowe ([id number]) [facility] ([facility] [address] [place] [address] Neutrophils (Bld) [#/Vol] 5.60 x10*3/uL High 1.60-5.50 [facility] Comment on above: Result Comment: Perc ent differential counts (%) should be interpreted in the context of the absolute cell counts (cells/uL). Performed By: #### 5 7021-8 #### JAMIN Crowe ([id number]) [facility] ([facility] [address] [place] [address] Neutrophils/100 WBC (Bld) 71.8 % Normal 40.0-80.0 [facility] Comment on above: Performed By: #### 5 7021-8 #### JAMIN Crowe ([id number]) [facility] ([facility] [address] [place] [address] Nucleated RBC/100 WBC (Bld) [Ratio] Normal [facility] Comment on above: Result Comment: Not Measured Performed By: #### 5 7021-8 #### JAMIN Crowe ([id number]) [facility] ([facility] [address] [place] [address] Platelets (Bld) [#/Vol] 211 x10*3/uL Normal 150-450 [facility] Comment on above: Performed By: #### 5 7021-8 #### JAMIN Crowe ([id number]) [facility] ([facility] [address] [place] [address] RBC (Bld) [#/Vol] 4.28 x10*6/uL Normal 4.00-5.20 [facility] Comment on above: Performed By: #### 5 7021-8 #### JAMIN Crowe ([id number]) [facility] ([place]) [address] [place] [address] WBC (Bld) [#/Vol] 7.8 x10*3/uL Normal 4.4-11.3 [facility] Comment on above: Performed By: #### 5 7021-8 #### JAMIN Crowe ([id number]) [facility] ([place]) [address] [place] [address] ECG 12-LEADon 09-30-2023 ECG 12-LEAD Ventricular Rate 68 Atrial Rate 68 P-R Interval 146 QRS Duration 82 Q-T Interval 410 QTC Calculation(Bazett) 435 P Nekoma 48 R Nekoma 4 T Nekoma -1 QRS Count 11 Q Onset 220 P Onset 147 P Offset 203 T Offset 425 QTC Fredericia 427 Diagnosis Normal sinus rhythm Normal ECG When compared with ECG of 17-FEB-2017 13:12, No significant change was found Confirmed by Ryan Odom ([id number]) on 10/01/2023 12:33:54 PM Normal [facility] HbA1c (Bld) [Mass fraction]o n 09-30-2023 Average glucose Estimated from glycated hemoglobin (Bld) [Mass/Vol] 111 mg/dL Normal Not Established [facility] Comment on above: Order Comment: Diagn osis of Diabetes-Adults Non-Diabetic: < or = 5.6% Increased risk for developing diabetes: 5.7-6.4% Diagnostic of diabetes: > or = 6.5% Monitoring of Diabetes Age (y)....................... Therapeutic Goal (%) Adults: >18.........................<7.0 Pediatrics: 13-18...................<7.5 Pediatrics: 7-12....................<8.0 Pediatrics: 0-6..................... 7.5-8.5 [place] [employer]. Diabetes Care 33(S1), Jun 2009 Performed By: #### 4 548-4 #### JAMIN Crowe ([id number]) [facility] () [address] [address] Hemoglobin A1c/Hemoglobin.to naomi 09-30-2023 HbA1c (Bld) [Mass fraction] 5.5 % Normal See below [facility] Comment on above: Order Comment: Diagn osis of Diabetes-Adults Non-Diabetic: < or = 5.6% Increased risk for developing diabetes: 5.7-6.4% Diagnostic of diabetes: > or = 6.5% Monitoring of Diabetes Age (y)....................... Therapeutic Goal (%) Adults: >18.........................<7.0 Pediatrics: 13-18...................<7.5 Pediatrics: 7-12....................<8.0 Pediatrics: 0-6..................... 7.5-8.5 [place] [employer]. Diabetes Care 33(S1), Jun 2009 Performed By: #### 4 548-4 #### JAMIN Crowe ([id number]) [facility] () [address] [place] [address] No Panel Informationon 09-29 Interpreted By: Shamika Cool, STUDY: XR KNEE LEFT 3 VIEWS; XR LOWER EXTREMITY LEG LENGTH EVALUATION; 09/30/2023 10:49 am; 09/30/2023 10:51 am INDICATION: Signs/Symptoms:PRE- OP XRAYS TO BE DONE DURING PAT AT [facility]. COMPARISON: 06/11/2020 ACCESSION NUMBER(S): [id number]; [id number] ORDERING CLINICIAN: BRANDON DONIS FINDINGS: Three views left knee and AP views of the bilateral lower extremities. 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 Degenerative changes predominantly involving the medial compartment. No fracture or dislocation. No osseous lesion. Right knee Total knee arthroplasty without evidence of hardware complication. No fracture or dislocation. No osseous lesion. Sizable effusion. Kprq-lf-beejhvfr bilateral hip osteoarthrosis. No fracture or dislocation. No osseous lesion. 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 Right Total knee arthroplasty without evidence of hardware complication. MACRO none Signed by: Shamika Cool 09/30/2023 1:24 PM Dictation workstation: [id number] Gianluca Cool MD - 09/30/2023 Interpreted By: Shamika Cool, STUDY: XR KNEE LEFT 3 VIEWS; XR LOWER EXTREMITY LEG LENGTH EVALUATION; 09/30/2023 10:49 am; 09/30/2023 10:51 am INDICATION: Signs/Symptoms:PRE- OP XRAYS TO BE DONE DURING PAT AT [facility]. COMPARISON: 06/11/2020 ACCESSION NUMBER(S): [id number]; [id number] ORDERING CLINICIAN: BRANDON DONIS FINDINGS: Three views left knee and AP views of the bilateral lower extremities. 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 Degenerative changes predominantly involving the medial compartment. No fracture or dislocation. No osseous lesion. Right knee Total knee arthroplasty without evidence of hardware complication. No fracture or dislocation. No osseous lesion. Sizable effusion. Mblw-zq-rwomgdjr bilateral hip osteoarthrosis. No fracture or dislocation. No osseous lesion. 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 Right Total knee arthroplasty without evidence of hardware complication. MACRO none Signed by: Shamika Cool 09/30/2023 1:24 PM Dictation workstation: [id number] [facility] Work Phone: No Panel InformationOrdered By: Gianluca Cool on 09-30-2023 [facility] Work Phone: Staphylococcus aureus.methic illin resistant isolateon 09-30-2023 MRSA isol Org specific cx Ql (Nose) Test: Staphylococcus aureus/MRSA colonization, Culture Specimen Source: Anterior Nares Specimen Type: Swab Specimen Date: 09/30/2023 113 Result Date: 10/02/2023925 Result Status: Final result Abnormal: Yes Resulting Lab: [facility] [id number] [place] [address] CULTURE Isolated: Methicillin Susceptible Staphylococcus aureus (MSSA) (Abnormal) Abnormal [facility] Comment on above: Performed By: #### 5 2969-3 #### ELEN Hough ([id number]) [facility] ([facility]) [address] [place] [address] XR Femur and Tibia Views for leg lengthon 09-30-2023 Radiology Study observation (narrative) [facility] Work Phone: XR KNEE LEFT 3 VIEWSon 09-29 XR KNEE LEFT 3 VIEWS Interpreted By: Shamika Cool, STUDY: XR KNEE LEFT 3 VIEWS; XR LOWER EXTREMITY LEG LENGTH EVALUATION; 09/30/2023 10:49 am; 09/30/2023 10:51 am INDICATION: Signs/Symptoms:PRE- OP XRAYS TO BE DONE DURING PAT AT [facility]. COMPARISON: 06/11/2020 ACCESSION NUMBER(S): [id number]; [id number] ORDERING CLINICIAN: BRANDON DONIS FINDINGS: Three views left knee and AP views of the bilateral lower extremities. 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 Degenerative changes predominantly involving the medial compartment. No fracture or dislocation. No osseous lesion. Right knee Total knee arthroplasty without evidence of hardware complication. No fracture or dislocation. No osseous lesion. Sizable effusion. Lfvl-xi-sniiooyl bilateral hip osteoarthrosis. No fracture or dislocation. No osseous lesion. 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 Right Total knee arthroplasty without evidence of hardware complication. MACRO none Signed by: Shamika Cool 09/30/2023 1:24 PM Dictation workstation: [id number] Normal [facility] Comment on above: Order Comment: PRE-O P XRAYS TO BE DONE DURING PAT AT [facility] XR Knee - left 3 Viewson Radiology Study observation (narrative) [facility] Work Phone: XR LOWER EXTREMITY LEG LENGT H EVALUATIONon 09-30-2023 XR LOWER EXTREMITY LEG LENGTH EVALUATION Interpreted By: Shamika Cool, STUDY: XR KNEE LEFT 3 VIEWS; XR LOWER EXTREMITY LEG LENGTH EVALUATION; 09/30/2023 10:49 am; 09/30/2023 10:51 am INDICATION: Signs/Symptoms:PRE- OP XRAYS TO BE DONE DURING PAT AT [facility] OR [facility] [place] [facility]. COMPARISON: 06/11/2020 ACCESSION NUMBER(S): [id number]; [id number] ORDERING CLINICIAN: BRANDON DONIS FINDINGS: Three views left knee and AP views of the bilateral lower extremities. 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 Degenerative changes predominantly involving the medial compartment. No fracture or dislocation. No osseous lesion. Right knee Total knee arthroplasty without evidence of hardware complication. No fracture or dislocation. No osseous lesion. Sizable effusion. [id number] bilateral hip osteoarthrosis. No fracture or dislocation. No osseous lesion. 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 Right Total knee arthroplasty without evidence of hardware complication. MACRO none Signed by: Shamika Cool 09/30/2023 1:24 PM Dictation workstation: [id number] [facility] Comment on above: Order Comment: PRE-O P XRAYS TO BE DONE DURING PAT AT [facility] Automated erythrocytes count in urine sediment (number/area)Ordered By: BRENNAN MELISSA on 09-23-2023 RBC Auto (Urine sed) [#/Area] 5-9 [HPF] 0-4 [facility] Automated leukocytes count i n urine sediment (number/area)Ordered By: BRENNAN MELISSA on 09-23-2023 WBC Auto (Urine sed) [#/Area] Innumerable [HPF] 0-4 [facility] Automated urine hyaline cast s count (number/volume)Ordered By: BRENNAN MELISSA on 09-23-2023 Hyaline casts Auto (U) [#/Vol] 0-1 [LPF] 0-1 [facility] Bilirubin Test strip Ql (U)O rdered By: BRENNAN MELISSA on 09-23-2023 Bilirubin Ql (U) Negative Negative [facility] Color Auto (U)Ordered By: BABAK MELISSA on 09-23-2023 Color (U) Yellow Yellow [facility] Dipstick and Microscopicon 0 09-23-2023 Appearance (U) Cloudy Critically abnormal Clear [facility] Comment on above: Order Comment: Name Collection Type:: Clean-Voided Midstream Performed By: #### C UU, ADDONUAPLUS #### [facility] [address] [place] [address] Bacteria,Urine 4+ High None Seen [facility] Comment on above: Order Comment: Name Collection Type:: Clean-Voided Midstream Performed By: #### C UU, ADDONUAPLUS #### [place] [address] [place] Bilirubin,Urine Negative Normal Negative [facility] Comment on above: Order Comment: Name Collection Type:: Clean-Voided Midstream Performed By: #### C UU, ADDONUAPLUS #### [address] Color (U) Yellow Normal Yellow [facility] Comment on above: Order Comment: Name Collection Type:: Clean-Voided Midstream Performed By: #### C UU, ADDONUAPLUS #### [address] Glucose Ql (U) Normal Normal Normal [facility] Comment on above: Order Comment: Name Collection Type:: Clean-Voided Midstream Performed By: #### C UU, ADDONUAPLUS #### [place] [address] [place] Hyaline Casts,Urine 0-1 Normal 0-1 [facility] Comment on above: Order Comment: Name Collection Type:: Clean-Voided Midstream Performed By: #### C UU, ADDONUAPLUS #### [place] [address] [place] Ketones Ql (U) 2+ High Negative [facility] Comment on above: Order Comment: Name Collection Type:: Clean-Voided Midstream Performed By: #### C UU, ADDONUAPLUS #### [address] Leukocyte esterase Test strip Ql (U) 3+ High Negative [facility] Comment on above: Order Comment: Name Collection Type:: Clean-Voided Midstream Performed By: #### C UU, ADDONUAPLUS #### [place] [address] [place] Mucus,Urine 2+ Critically abnormal [facility] Comment on above: Order Comment: Name Collection Type:: Clean-Voided Midstream Result Comment: PERF ORMED BY: [place] [address] PATHOLOGIST ACCESS SERVICES ASSISTANT SUMMER HANCOCK M.D. Performed By: #### C UU, ADDONUAPLUS #### [place] [address] [place] Nitrite,Urine Positive High Negative [facility] Comment on above: Order Comment: Name Collection Type:: Clean-Voided Midstream Performed By: #### C UU, ADDONUAPLUS #### [place] [address] [place] Occult Blood,Urine 1+ High Negative [facility] Comment on above: Order Comment: Name Collection Type:: Clean-Voided Midstream Result Comment: PERF ORMED BY: [place] [address] PATHOLOGIST ACCESS SERVICES ASSISTANT SUMMER HANCOCK M.D. Performed By: #### C UU, ADDONUAPLUS #### [place] [address] [place] pH (U) 5.5 [pH] Normal 5.0-9.0 [facility] Comment on above: Order Comment: Name Collection Type:: Clean-Voided Midstream Performed By: #### C UU, ADDONUAPLUS #### [place] [address] [place] Protein,Urine Negative Normal Negative [facility] Comment on above: Order Comment: Name Collection Type:: Clean-Voided Midstream Performed By: #### C UU, ADDONUAPLUS #### [place] [address] [place] RBC,Urine 5-9 High 0-4 [facility] Comment on above: Order Comment: Name Collection Type:: Clean-Voided Midstream Performed By: #### C UU, ADDONUAPLUS #### [address] Specificy [place],Urine 1.016 Normal 1.001-1.030 [facility] Comment on above: Order Comment: Name Collection Type:: Clean-Voided Midstream Performed By: #### C UU, ADDONUAPLUS #### [address] Squamous Epithelial Cell,Urine 3-4 High 0-2 [facility] Comment on above: Order Comment: Name Collection Type:: Clean-Voided Midstream Performed By: #### C UU, ADDONUAPLUS #### [address] Urobilinogen,Urine Normal Normal Normal [facility] Comment on above: Order Comment: Name Collection Type:: Clean-Voided Midstream Performed By: #### C UU, ADDONUAPLUS #### [address] WBC,Urine Innumerable High 0-4 [facility] Comment on above: Order Comment: Name Collection Type:: Clean-Voided Midstream Performed By: #### C UU, ADDONUAPLUS #### [address] Ketones Auto test strip (U) [Mass/Vol]Ordered By: BRENNAN MELISSA on 09-23-2023 Ketones (U) [Mass/Vol] 2+ Negative [facility] Mucus LM Ql (Urine sed)Order ed By: BRENNAN MELISSA on 09-23-2023 Mucus Ql (Urine sed) 2+ [LPF] [facility] Nitrite Test strip Ql (U)Ord ered By: BRENNAN MELISSA on 09-23-2023 Nitrite Ql (U) Positive Negative [facility] Protein Auto test strip (U) [Mass/Vol]Ordered By: BRENNAN MELISSA on 09-23-2023 Protein (U) [Mass/Vol] Negative Negative [facility] Specific gravity Auto test s trip (U) [Rel density]Ordered By: BRENNAN MELISSA on 09-23-2023 Specific gravity (U) [Rel density] 1.016 1.001-1.030 [facility] Squamous epithelial cells de tection in urine sediment by light microscopyOrdered By: BRENNAN MELISSA on 09-23-2023 Epithelial cells.squamous LM Ql (Urine sed) 3-4 [HPF] 0-2 [facility] Urine Cultureon 09-23-2023 Bacteria identified Cx Nom (U) ORGANISM: Escherichia coli (O:ESCCOL) Duncan Count >100,000 Aerobic HUAN Charge ([id number]) ------ SUSCEPTIBILITY ----- ORGANISM: O:ESCCOL ANTIBIOTIC INTERPRETATION HUAN Amikacin S <16 Amoxacillin/K Clavulanate S <8 Ampicillin S <8 Ampicillin/Sulbacta m S <4 Aztreonam S <4 Cefazolin S <2 Cefepime S <2 Ceftazidime S <1 Ceftazidime/Avibact am S <4 Ceftolozane/Tazobac quintero S <2 Ceftriaxone S <1 Cefuroxime S 8 Ciprofloxacin S <0.25 Ertapenem S <0.5 Gentamicin S <2 Levofloxacin S <0.5 Meropenem S <1 Meropenem/Vaborbact am S <2 Nitrofurantoin S <32 Piperacillin/Tazoba ctam S <8 Tetracycline S <4 Tigecycline S <2 Tobramycin S <2 Trimethoprim/Sulfam ethoxazole S <0.5 S = SUSCEPTIBLE I = INTERMEDIATE R = RESISTANT BLANK = DATA NOT AVAILABLE, OR DRUG NOT ADVISABLE OR TESTED R* = RESISTANCE DUE TO EXTENDED SPECTRUM BETA-LACTAMASES ESBL = EXTENDED SPECTRUM BETA-LACTAMASE TFG = THYMIDINE-DEPENDENT STRAIN BENOIT = BETA-LACTAMASE POSITIVE IB = INDUCIBLE BETA-LACTAMASE. APPEARS IN PLACE OF 'S' WITH SPECIES KNOWN TO POSSESS INDUCIBLE BETA-LACTAMASES. POTENTIALLY THEY MAY BECOME RESISTANT TO ALL B-LACTAM DRUGS. PERFORMED BY: [address] [place] [address] PATHOLOGIST ACCESS SERVICES ASSISTANT SUMMER HANCOCK M.D. Normal [facility] Comment on above: Performed By: #### C UU, ADDONUAPLUS #### [facility] [address] Urine bacteria detection by automated methodOrdered By: BRENNAN MELISSA on 09-23-2023 Bacteria Auto Ql (U) 4+ None Seen [facility] Urine clarity by refractomet ry automatedOrdered By: BRENNAN MELISSA on 09-23-2023 Clarity Refractometry automated (U) Cloudy Clear [facility] Urine glucose measurement by automated test strip (mass/volume)Ordered By: BRENNAN MELISSA on 09-23-2023 Glucose Auto test strip (U) [Mass/Vol] Normal mg/dL Normal [facility] Urine hemoglobin detection b y automated test stripOrdered By: BRENNAN MELISSA on 09-23-2023 Hemoglobin Auto test strip Ql (U) 1+ Negative [facility] Urine leukocyte esterase det ection by automated test stripOrdered By: BRENNAN MELISSA on 09-23-2023 Leukocyte esterase Auto test strip Ql (U) 3+ Negative [facility] Urobilinogen Auto test strip (U) [Mass/Vol]Ordered By: BRENNAN MELISSA on 09-23-2023 Urobilinogen (U) [Mass/Vol] Normal mg/dL Normal [facility] pH Auto test strip (U)Ordere d By: BRENNAN MELISSA on 09-23-2023 pH (U) 5.5 [pH] 5.0-9.0 [facility] L Inj/Asp: L kneeon 06-11-20 Thao Justin MD 06/11/2023 2:52 PM L Inj/Asp: L knee on 06/11/2023 2:52 PM Indications: pain and joint swelling Details: 22 G needle, anterolateral approach Medications: 4 mL lidocaine 10 mg/mL (1 %); 1 mL triamcinolone acetonide 40 mg/mL Discussion: I discussed the conservative treatment options for knee osteoarthritis including but not limited to physical therapy, oral NSAIDS, activity and lifestyle modification, and corticosteroid injections. Pt has elected to undergo a cortisone injection today. I have explained the risk and benefits of an injection including the possibility of joint infection, bleeding, damage to cartilage, allergic reaction. Patient verbalized understanding and gave verbal consent wishes to proceed with a intra-articular cortisone injection for their knee. Procedure: After discussing the risk and benefits of the procedure, we proceeded with an intra-articular left knee injection. With the patient's informed verbal consent, the left knee was prepped in standard sterile fashion with Chlorhexidine. The skin was then anesthetized with ethyl chloride spray and cleaned again with Chlorhexidine. The knee was then apirated/injected with a prefilled 20-gauge syringe of 40 mg Kenalog + 4 ml Lidocaine using the lateral approach without complications. The patient tolerated this well and felt immediate initial relief of symptoms. A bandaid was applied and the patient ambulated out of the clinic on ther own accord without difficulty. Patient was instructed to avoid physical activity for 24-48 hours to prevent the knees from swelling and may ice the knees as tolerated. Patient should contact the office if any signs of of infection appear: redness, fever, chills, drainage, swelling or warmth to the knees. Pt understands that the injections can be repeated no sooner than 3 months. Procedure, treatment alternatives, risks and benefits explained, specific risks discussed. Consent was given by the patient. Immediately prior to procedure a time out was called to verify the correct patient, procedure, equipment, technician support engineer and site/side marked as required. Patient was prepped and draped in the usual sterile fashion. [facility] Work Phone: [facility] Work Phone: XR KNEE LEFT 4+ VIEWSon 05-23 XR KNEE LEFT 4+ VIEWS Interpreted By: Geoffrey Shah, STUDY: XR KNEE LEFT 4+ VIEWS INDICATION: Signs/Symptoms:Pain in left knee. COMPARISON: February 21, 2016 ACCESSION NUMBER(S): [id number] ORDERING CLINICIAN: BRANDON DONIS FINDINGS: Advanced osteoarthritis left knee worst medially, progressed from prior study. No fracture or lesion seen. IMPRESSION: Advanced osteoarthritis left knee worst in the medial compartment. Signed by: Geoffrey Shah 06/12/2023 7:21 PM Dictation workstation: [id number] [facility] Comment on above: Order Comment: Confi rmed with patient and MA that it is a left knee to be done for pain BI MAMMOGRAM SCREENING TOMOS YNTHESIS BILATERALon 06-03-2023 BI MAMMOGRAM SCREENING TOMOSYNTHESIS BILATERAL This is a summary report. The complete report is available in the patient's medical record. If you cannot access the medical record, please contact the sending organization for a detailed fax or copy. EXAMINATION: BI MAMMOGRAM SCREENING TOMOSYNTHESIS BILATERAL CLINICAL HISTORY: Screening mammogram COMPARISON: Priors dating back to 2018 in [employer] pacs system. RESULT: 3-D tomosynthesis imaging of the bilateral breast(s) was performed. Density: Heterogeneously dense [3] There are no suspicious masses or asymmetries, areas of architectural distortion or suspicious areas of microcalcifications . IMPRESSION: BIRADS 1 - Negative Recommended follow-up: Routine Screening Mamm Board Certified Radiologists. Accredited by the ACR and FDA. MAMMOGRAPHY IS VERY IMPORTANT TO YOUR HEALTH. THE [place] [employer] GUIDELINES RECOMMEND THAT WOMEN 40 YEARS OF AGE AND OLDER SHOULD HAVE A MAMMOGRAM EVERY YEAR. A REMINDER LETTER WILL BE SENT AT THE APPROPRIATE TIME. THIS FACILITY UTILIZES A REMINDER SYSTEM TO ENSURE ALL PATIENTS RECEIVE REMINDER NOTIFICATIONS AT THE APPROPRIATE TIME BASED ON THE RECOMMENDATIONS OF THIS EXAM. THIS INCLUDES REMINDERS FOR ROUTINE SCREENING MAMMOGRAMS, DIAGNOSTIC MAMMOGRAMS IN WHICH THE PATIENT IS ASKED TO RETURN FOR ADDITIONAL VIEWS, OR OTHER BREAST IMAGING INTERVENTIONS WHEN APPROPRIATE. THE PATIENT WILL BE PLACED IN THE APPROPRIATE REMINDER SYSTEM INCLUDING A REMINDER AT THE APPROPRIATE TIME FOR ANY PENDING ADDITIONAL VIEWS. ELECTRONICALLY SIGNED BY: Maurilio Keenan MD Normal Not Available Established Visit (Orthopaed ic Surgery)on 02-26-2023 Established Visit (Orthopaedic Surgery) Diagnoses/Problems Assessed Arthropathy of left knee (716.96) (M17.12) Chief Complaint FUV left knee pain History of Present Illness 78-year-old female with known underlying osteoarthritis of the left knee Left knee: AAOx3, NAD, walks with a moderate antalgic gait Varus allignment Range of motion lacks 10 degrees of full extension and flexes to 110 degrees Stable to varus/valgus/anteri or/posterior stress through out the range of motion Slight laxity with varus stress Diffuse medial joint line tenderness to palpation Moderate effusion SILT in a josé miguel/saph/per/tib distribution 5/5 knee extension/df/pf/ehl dorsalis pedis and posterior tibial pulse no popliteal lymphadenopathy no other overlying lesions mood: euthymic Respirations non labored Plain films were reviewed by myself in clinic today. They have advanced osteoarthritis of their knee with significant joint space narrowing, underlying sclerosis and tricompartmental osteophytic change. Patient is now failed a greater than 3-month trial of reasonable conservative treatment and wishes proceed with surgery which is indicated at this time. Discussed the risk benefits alternatives to surgery. All of their questions were answered. I talked with the patient at length about risks, limitations, benefits and alternatives to total knee replacement today. I reviewed concerns about implant wear, loosening, breakage, infection and infection prophylaxis, DVT, PE, and other medical and anesthetic complications of surgery. We talked about the potential for persistent pain following surgery since there are many possible causes for knee and leg pain. The patient was advised that knee replacement will only relieve pain that is coming from the knee. We talked about limited range of motion following knee replacement and the importance of physical therapy and their motivation. We talked about improvements in pain management post-operatively and our accelerated rehab program. We talked about wound healing issues and neurovascular complications of surgery. I reviewed functional and activity restrictions in detail. We discussed the possible need for a homologous blood transfusion. We discussed the fact that many of our patients are able to go home in 1 day or less depending on their health, mobility, pre-op preparation, individual home situation and personal preference. The patient has identified their personal goals of their joint replacement surgery and recovery and we have discussed them. These are documented in our [employer] patient engagement platform. In addition, we have discussed the advantages and disadvantages of various implant and fixation options, as well as various surgical approaches. The basic concepts of the joint replacement procedure has been reviewed with the patient and the patient has been provided the opportunity to see an actual implant either in the office or in our pre-op education class. All of the patients questions were answered. The patient can call my office to schedule surgery and the pre-op teaching class. I told the patient that they should contact their primary care physician to discuss fitness for surgery. This note was created using voice recognition software and was not corrected for typographical or grammatical errors.. *Active Problems Problems Arthritis of right knee (716.96) (M17.11) Bilateral knee pain (719.46) (M25.561,M25.562) Primary osteoarthritis of both knees (715.16) (M17.0) Aftercare following right knee joint replacement surgery (V54.81) (Z47.1) Social History Problems Never a smoker Current Meds Medication NameInstruction Alendronate Sodium 70 MG Oral Tablet amLODIPine Besylate 5 MG Oral Tablet Diclofenac Sodium 75 MG Oral Tablet Delayed Release Losartan Potassium 25 MG Oral Tablet Premarin 0.625 MG/GM Vaginal Cream Triamcinolone Acetonide 0.025 % External Cream Signatures Electronically signed by : Thao Justin MD; Mar 29 2023 10:47AM EST (Author) Normal [facility] CNOVon 10-07-2022 CNOV Office Visit (RHEUMN) ---- MADDIE BA ([id number]) 1945 F Date Time Provider Department 10/07/22 12:45 PM TRES PEDRAZA During your visit today, we recorded the following information about you: Temperature Pulse Blood pressure Weight 98 degrees 76/minute 134/84 56.5 kg Height 1.524 m Tres Pedraza MD 10/07/2022 12:34 PM Addendum Stop prednisone Call us back if any issues come up again, if the same stiffness and pain comes back, take 10 mg prednisone Regarding Carpal Tunnel, if it gets worse would have you see a hand surgeon for consideration of surgical carpal tunnel release Imtiaz Tilley MD 10/09/2022 2:46 PM Signed Rheumatology Office Follow-Up Note Date of Service: October 07, 2022 Last Rheumatology Clinic Visit: 02/04/2022 (with Tres Pedraza) Chief Complaint/Reason for Visit: PMR HPI/Interval Events: Maddie Ba is a 77 year old female with PMH significant for HTN and osteoporosis who presents PMR follow-up. Has not been in since Jan 2022. Is currently on 1 mg pred every other day No recurrence of muscle pain or stiffness. She is doing quite well. No cranial GCA symptoms. EMG consistent with bilateral carpal tunnel syndrome. Her finger numbness is stable. She does not feel that the splints have made much difference. Not impacting her quality of life at this time. Rheumatologic History: Jan 2022 - muscle pain and stiffness in the shoulder and hip girdle with elevated inflammatory markers and a rapid resolution of symptoms with prednisone therapy. She did not have any cranial GCA symptoms. Started on moderate dose prednisone 15 mg with a taper by 2.5 mg every week until on 5 mg prednisone and stay at 5 mg. PAST MEDICAL HISTORY Diagnosis Date Essential hypertension Migraines history of No past surgical history on file. No family history on file. Social History Tobacco Use Smoking status: Never Smokeless tobacco: Never Substance Use Topics Alcohol use: Yes Alcohol/week: 3.0 standard drinks Types: 3 Glasses of wine per week Drug use: Never Current Outpatient Medications Medication Sig amLODIPine (NORVASC) 5 mg tablet estrogens, conjugated (PREMARIN VAGINAL) Use vaginally. denosumab (PROLIA SUBCUTANEOUS) Inject subcutaneously. No current facility-administer ed medications for this visit. No flowsheet data found. Review of Systems CONSTITUTION: Negative for: Weight loss or gain, Fever. Chills, Night sweats HEENT: Negative for: Nosebleeds, Mouth sores, Trouble swallowing, Dry mouth RESPIRATORY: Negative for: Cough, Shortness of breath, Pain with breathing, Coughing up blood GASTROINTESTINAL: Negative for: Melena, Diarrhea, Abdominal pain, Heartburn, MUSCULOSKELETAL: Negative for: Arthralgias, Myalgias, Muscle weakness, Joint swelling, Morning stiffness in joints NEUROLOGICAL: Negative for: Headaches, Numbness, Memory loss, SKIN: Negative for: Rashes, Sun sensitive rashes, Skin color changes, Hair loss, Nail changes EYES: Negative for: Eye pain, Eye redness, Visual disturbance, Eye dryness CARDIOVASCULAR: Negative for: Chest pain, Leg swelling, Arrhythmia, Presyncope GENITOURINARY: Negative for: Dysuria, Hematuria, Ulceration HEMATOLOGIC/LYMPHAT IC: Negative for: Swollen glands PHQ9 No flowsheet data found. Reference Values for PHQ9 0 - 4: Minimal Depression 5 - 9: Mild Depression 10 - 14: Moderate Depression 15 - 19: Moderately Severe Depression 20 - 27: Severe Depression Physical Exam: BP 134/84 Pulse 76 Temp 36.7 ?C (98 ?F) (Temporal) Ht 152.4 cm (5') Wt 56.5 kg (124 lb 8 oz) SpO2 100% BMI 24.31 kg/m? Physical Exam Constitutional: Appearance: She is not ill-appearing. HENT: Head: Normocephalic and atraumatic. Mouth/Throat: Mouth: Mucous membranes are moist. Eyes: Extraocular Movements: Extraocular movements intact. Pupils: Pupils are equal, round, and reactive to light. Cardiovascular: Rate and Rhythm: Normal rate and regular rhythm. Heart sounds: No murmur heard. Pulmonary: Effort: Pulmonary effort is normal. Breath sounds: Normal breath sounds. No wheezing. Abdominal: Palpations: Abdomen is soft. Tenderness: There is no abdominal tenderness. Musculoskeletal: Right shoulder: No swelling, deformity or tenderness. Left shoulder: No swelling, deformity or tenderness. Right elbow: No swelling or deformity. Left elbow: No swelling or deformity. Right hand: No swelling or deformity. Left hand: No swelling or deformity. Cervical back: No tenderness or bony tenderness. Thoracic back: No deformity or bony tenderness. Lumbar back: No deformity or bony tenderness. Right hip: No deformity or tenderness. Left hip: No deformity or tenderness. Right knee: No swelling, effusion or crepitus. Left knee: No swelling, effusion or crepitus. Right ankle: No swelling or deformity. Left ankle: No swelling or deform (more content not included)... Normal [facility] 04-01-2022 [facility] Telephone ([facility]) ---- MDADIE BA ([id number]) 1945 F Date Time Provider Department 04/01/22 BEST GUTIERREZ During your visit today, we recorded the following information about you: Allergies As of Date: 04/01/2022 (No Known Allergies) Date Reviewed: 03/05/2022 Reviewed by: Best Gutierrez DO - Fully Assessed Reason for Visit: Results [95] Prescriptions as of 04/01/2022 - predniSONE (DELTASONE) 1 mg tablet Take 4 tablets by mouth once daily for 30 days, THEN 3 tablets once daily for 30 days, THEN 2 tablets once daily for 30 days, THEN 1 tablet once daily. - amLODIPine (NORVASC) 5 mg tablet - estrogens, conjugated (PREMARIN VAGINAL) Use vaginally. - denosumab (PROLIA SUBCUTANEOUS) Inject subcutaneously. - predniSONE (DELTASONE) 5 mg tablet Take 3 tablets by mouth once daily for 7 days, THEN 2.5 tablets once daily for 7 days, THEN 2 tablets once daily for 7 days, THEN 1.5 tablets once daily for 7 days, THEN 1 tablet once daily. Problem List As Of Date: 04/01/2022 (None) Encounter Status:Closed by BEST GUTIERREZ on 04/01/22 [facility] [facility] 03-05-2022 CNOV Office Visit (NEUAV4) ---- MADDIE BA ([id number]) 1945 F Date Time Provider Department 03/05/22 4:00 PM BEST GUTIERREZAV4 During your visit today, we recorded the following information about you: Pulse Blood pressure 74/minute 134/85 Best Gutierrez DO 03/05/2022 5:06 PM Signed [facility] Neurolog[facility] [place] New Patient Consultation March 05, 2022 HPI: Ms. Ba presents today secondary to issues of paresthesias of the hands.. She states that she has had a gradual feeling of the fingertips of her hands. She had the COVID vaccine update a few weeks earlier noticing afterwards she had multiple body aches in the joints. She was placed her on prednisone which helped but when she ended this the pains returned leading to be placed back on the steroids and referred to rheumatology who continued. In the same time she noticed the numbness in the first four fingers of each hand. She is right handed. She denies she does a lot of hand motions. She feels some weakness in her hands such as with opening jaws or holding something. Turning a door knob can be hard to turn at times. Prior to the steroids the feeling in the hands had awoken her at night. She denies neck pains or radicular neck pains. She has had some known bone spurs from 20 years ago. She had a home traction device she used for nearly a decade. She has not had any injuries. PAST MEDICAL HISTORY Diagnosis Date Essential hypertension Migraines history of History reviewed. No pertinent surgical history. Current Outpatient Medications on File Prior to Visit Medication Sig amLODIPine (NORVASC) 5 mg tablet estrogens, conjugated (PREMARIN VAGINAL) Use vaginally. denosumab (PROLIA SUBCUTANEOUS) Inject subcutaneously. predniSONE (DELTASONE) 5 mg tablet Take 3 tablets by mouth once daily for 7 days, THEN 2.5 tablets once daily for 7 days, THEN 2 tablets once daily for 7 days, THEN 1.5 tablets once daily for 7 days, THEN 1 tablet once daily. No current facility-administer ed medications on file prior to visit. Social History Tobacco Use Smoking status: Never Smokeless tobacco: Never ALLERGIES No Known Allergies Review of Systems: Constitutional: denies fever, weight loss, loss of appetite ENT: +/- loss of hearing, -vertigo Vision: denies blurring vison, double vision/diplopia Dermatologic: denies rash Cardiopulmonary: denies chest pain, palpitations, or skipped heart beats Respiratory: +shortness of breath with exertion GI: denies recent nausea, vomiting, diarrhea, constipation : denies incontinence Psych: denies depression, anxiety, or suicidal thoughts Sleep: denies issues with sleeping Heme: +easy bruising/bleeding Musculoskeletal: +weakness, -muscle atrophy, +joint ache/pain Back/spine: denies low back, mid back, or cervical pains Neuro: denies tremors, +weakness, loss of feeling, dizziness, seizure, blackout, +paresthesia, facial paresthesia, facial weakness, difficulty in speech, slurring of words, dysarthria, dysphagia, memory loss, headache Physical Exam: 03/05/22 1543 BP: 134/85 BP Site: Left Arm BP Position: Sitting BP Cuff Size: Regular Adult Pulse: 74 Patient is alert and in no distress. Dress is appropriate. Mood is appropriate Heart is regular rate and rhythm with no murmur or bruit auscultated Breathing appears regular and unstressed Neurologic examination: Cognitively intact. No deficits. No formal MMSE performed. CN: Pupils equal and reactive to light, extraocular movements intact with no nystagmus, face is symmetric with no facial droop, facial sensation intact bilaterally to light touch V1-3, hearing intact bilaterally, shoulder shrug is symmetric Motor exam shows 5/5 strength symmetric through the upper and lower extremities in all groups tested Sensory intact to light touch and temperature in all extremities. Vibratory sensation is vibration at the first toes bilaterally. Decreased pin prick in the second fingertips compared to the fifth bilaterally Deep tendon reflexes are symmetric at the biceps, brachioradialis, triceps, patella, and Achilles bilaterally Johnson's responses are both flexion. Coordination: No dysmetria on finger to nose. No tremors noted. No drift seen Gait normal in stance and pattern. Labs/studies: Cervical x-ray 02/04/2022 noting Disc space narrowing and osteophyte formation is present at the C3-4 through C7-T1 levels with additional narrowing and osteophytes at the atlantoaxial joint. In flexion, the atlantoaxial joint is normal. 5 to 6 mm of anterolisthesis noted at both C2-3 and C3-4, and approximately 5 mm anterolisthesis at C7-T1. In extension, the anterolisthesis at C2-3 decreases to 3 mm, C3-4 to 4 mm and C7-T1 4 mm. No retrolisthesis. Component Latest Ref Rng AND Units 02/04/2022 WSR 0 - 20 mm/hr 37 (H) CRP <0.9 (more content not included)... Normal [facility] C-REACTIVE PROTEIN (CRP)on 0 02-04-2022 CRP [Mass/Vol] 1.0 mg/dL High <0.9 mg/dL [facility] CNOVon 02-04-2022 CNOV Office Visit (RHEUMN) ---- MADDIE BA ([id number]) 1945 F Date Time Provider Department 02/04/22 2:15 PM TRES PEDRAZA During your visit today, we recorded the following information about you: Pulse Blood pressure Weight Height 82/minute 127/71 57.6 kg 1.524 m Imtiaz Tilley MD 02/06/2022 8:47 AM Signed Rheumatology Office Visit Note Date of Service: February 04, 2022 Reason for Consultation: Concern for PMR Consult Requested By: Cr Ferrari ([facility]) [address] [facility] [address] HPI: Maddie Ba is a 76 year old female with PMH significant for HTN and osteoporosis on Prolia who presents for evaluation for PMR. End of September 2021 she got her 4th COVID vaccine dose October 2021 - neck, shoulder, knees, and hips were hurting, aching, worst in the morning with stiffness Started on prednisone 20 mg BID back on October 22, and the pain went away completely after a few days Also has associated finger numbness of the bilateral finger tips. Sometimes the entire hand will feel like its on fire . Extreme fatigue and malaise, trouble sleeping because of her hand symptoms. Had elevated inflammatory markers when checked by her PCP. No headaches, no temporal tenderness, no scalp tenderness, no jaw claudication, no visual disturbances. PMH HTN Osteoporosis PSH R knee arthoplasty Fam Hx No family history of autoimmune disease Social History Tobacco Use Smoking status: Never Smokeless tobacco: Never Current Outpatient Medications Medication Sig amLODIPine (NORVASC) 5 mg tablet estrogens, conjugated (PREMARIN VAGINAL) Use vaginally. denosumab (PROLIA SUBCUTANEOUS) Inject subcutaneously. No current facility-administer ed medications for this visit. No flowsheet data found. Health Maintenance: Colonscopy - UTD Mammogram - UTD Review Of Systems: Review of Systems CONSTITUTION: Negative for: Weight loss or gain, Fever. Chills, Night sweats HEENT: Negative for: Nosebleeds, Mouth sores, Trouble swallowing, Dry mouth RESPIRATORY: Negative for: Cough, Shortness of breath, Pain with breathing, Coughing up blood GASTROINTESTINAL: Negative for: Melena, Diarrhea, Abdominal pain, Heartburn, MUSCULOSKELETAL: Positive for: Myalgias Negative for: Arthralgias, Muscle weakness, Joint swelling and Morning Joint Stiffness NEUROLOGICAL: Negative for: Headaches, Numbness, Memory loss, SKIN: Negative for: Rashes, Sun sensitive rashes, Skin color changes, Hair loss, Nail changes EYES: Negative for: Eye pain, Eye redness, Visual disturbance, Eye dryness CARDIOVASCULAR: Negative for: Chest pain, Leg swelling, Arrhythmia, Presyncope GENITOURINARY: Negative for: Dysuria, Hematuria, Ulceration HEMATOLOGIC/LYMPHAT IC: Negative for: Swollen glands PHQ9 No flowsheet data found. Reference Values for PHQ9 0 - 4: Minimal Depression 5 - 9: Mild Depression 10 - 14: Moderate Depression 15 - 19: Moderately Severe Depression 20 - 27: Severe Depression Physical Exam: BP 127/71 Pulse 82 Ht 152.4 cm (5') Wt 57.6 kg (127 lb) BMI 24.80 kg/m? Physical Exam Constitutional: Appearance: She is not ill-appearing. HENT: Head: Normocephalic and atraumatic. Mouth/Throat: Mouth: Mucous membranes are moist. Eyes: Extraocular Movements: Extraocular movements intact. Pupils: Pupils are equal, round, and reactive to light. Cardiovascular: Rate and Rhythm: Normal rate and regular rhythm. Heart sounds: No murmur heard. Pulmonary: Effort: Pulmonary effort is normal. Breath sounds: Normal breath sounds. No wheezing. Abdominal: Palpations: Abdomen is soft. Tenderness: There is no abdominal tenderness. Musculoskeletal: Right shoulder: No swelling, deformity or tenderness. Left shoulder: No swelling, deformity or tenderness. Right elbow: No swelling or deformity. Left elbow: No swelling or deformity. Right hand: No swelling or deformity. Left hand: No swelling or deformity. Cervical back: No tenderness or bony tenderness. Thoracic back: No deformity or bony tenderness. Lumbar back: No deformity or bony tenderness. Right hip: No deformity or tenderness. Left hip: No deformity or tenderness. Right knee: No swelling, effusion or crepitus. Left knee: No swelling, effusion or crepitus. Right ankle: No swelling or deformity. Left ankle: No swelling or deformity. Right foot: No swelling or deformity. Left foot: No swelling or deformity. Skin: General: Skin is warm and dry. Neurological: General: No focal deficit present. Mental Status: She is alert and oriented to person, place, and time. Mental status is at baseline. Labs: Imaging: Reviewed Assessment/Plan: M35.3 Polymyalgia rheumatica (HCC) (primary encounter diagnosis) In summary, this is a 76 year old female who presents for evaluation of muscle pain and stiffness in the shoulder and hip girdle who had elev (more content not included)... Normal [facility] CRP SerPl-mCncon 02-04-2022 CRP [Mass/Vol] 1.0 mg/dL High <0.9 [facility] Comment on above: Order Comment: Speci men Type: BLOOD SPECIMEN Ordering Facility: [facility] [place] Address: [address] [place] [address] Performed By: #### 1 988-5, 2132-02, 2284-01 #### [facility] CLIA [id number] [address] [place] [address] [place] ESR Westergren method (Bld) [Velocity]on 02-04-2022 ESR (Bld) [Velocity] 37 mm/h High 0-20 [facility] Comment on above: Order Comment: Speci men Type: BLOOD SPECIMEN Ordering Facility: [facility] [place] Address: [address] [place] [address] Performed By: #### 4 537-7 #### [facility] CLIA [id number] [address] [place] [address] [place] ESR (Bld) [Velocity] 37 mm/h High 0 - 20 mm/hr [facility] FOLATE SERUMon 02-04-2022 Folate [Mass/Vol] 17.2 ng/mL >4.7 ng/mL [facility] Folate SerPl-mCncon 02-05-20 22 Folate [Mass/Vol] 17.2 ng/mL Normal >4.7 [facility] Comment on above: Order Comment: Speci men Type: BLOOD SPECIMEN Ordering Facility: [facility] [place] Address: [address] [place], [place] [address] Performed By: #### 1 988-5, 2132-02, 2284-01 #### [facility] CLIA [id number] [address] [place] [address] [place] VITAMIN B12 BLOODon 02-05-20 22 Cobalamin (Vitamin B12) [Mass/Vol] 444 pg/mL 232 - 1,245 pg/mL [facility] Vit B12 SerPl-mCncon 022 Cobalamin (Vitamin B12) [Mass/Vol] 444 pg/mL Normal 232-1245 [facility] Comment on above: Order Comment: Speci men Type: BLOOD SPECIMEN Ordering Facility: [facility] [place] Address: [address] [place] [address] Performed By: #### 1 988-5, 2132-9, 2284-8 #### [facility] CLIA [id number] [address] [place], [place] [address] [address] [place] XR CERVICAL 2V FLEX/EXTon XR CERVICAL 2V FLEX/EXT * * *Final Report* * * DATE OF EXAM: Feb 04 2022 3:37PM AOX [id number] - XR CERVICAL 2V FLEX/EXT / PROCEDURE REASON: multiple diagnoses * * * * Physician Interpretation * * * * HISTORY: Polymyalgia rheumatica (HCC) Numbness and tingling in both hands Numbness and tingling in both hands TECHNOLOGIST PROVIDED HISTORY (if applicable): TECHNIQUE: XR CERVICAL 2V FLEX/EXT RESULT: Flexion and extension lateral views of the cervical spine. Counting reference: Craniocervical junction. Normal prevertebral soft tissues. Disc space narrowing and osteophyte formation is present at the C3-4 through C7-T1 levels with additional narrowing and osteophytes at the atlantoaxial joint. In flexion, the atlantoaxial joint is normal. 5 to 6 mm of anterolisthesis noted at both C2-3 and C3-4, and approximately 5 mm anterolisthesis at C7-T1. In extension, the anterolisthesis at C2-3 decreases to 3 mm, C3-4 to 4 mm and C7-T1 4 mm. No retrolisthesis. IMPRESSION: MULTILEVEL DEGENERATIVE CHANGES WITHOUT RADIOGRAPHIC DEMONSTRATION OF INSTABILITY. Facilities Manager: TAMERA Transcribe Date/Time: Feb 05 2022 8:11P Dictated by : BRIAN CARDOZA MD This examination was interpreted and the report reviewed and electronically signed by: BRIAN CARDOZA MD on Feb 05 2022 8:15PM EST [id number] Normal [facility] Coding Summaryon 12-11-2021 Coding Summary HTMLBase 64 OilowevsGVt3oVo+PGh lYWQ+BJ1CUSEfQ84boM CqpP4EF0bFHG1KSZVAQ URNZW3HTZ1bwRK1FAdq C8DgfnCf BdlymWKoKU33JOq8FCK 6lKatJWjzlX0idNIyQ5 r4AnIpYX74jT11TYcdH MDnVdM4MyXtxpctzXMh U6qfMlKgkLUmVom+PHR hYmxlIHdpZHRoPScxMD KkFuQfoHygXL9uQn0bH GVyLWNvbGxhcHNlOiBj n5ajHLPlIAneSL4zeGl kQ7KbtJO2TOMrm7m6Re 48dHI+GYAtZCK6sZdkP Smkq787IdVzc3toSVT8 rINrYRkoCLL6C65rf2M 8QKWzZKDhMYR5cBM8xN 7zgVbdfuomA8DehWXjA dH5NFF1cYGcfM2rbPzs mzfijN9bZqk+U55REJ4 AENPTPE5TJfe0Q7MrGu wvdHI+EG04PYMnAO87z BTvmQCmu3yjbVq8GlBi SARmLNJ7iUhuEDibk5M sJRQuU71obEVcy8G9HL NniOejqPOfYdCksQA8c V6rGQcynbmad2ndeaxz Rhsjd9yptm54oH55A89 uXTnhHERlTVW4MNCtRW YxaGmkll9hnO6fBl3+I Tchz5bls6piyAs8AnUs HMJwohCnqXauGWW8u4X jNp01R8CzhJexc0PgQz w1wr97wYJex2V9iKG3L FnwTOHkiI5nZWstAyR8 WBBuAeLmxJ59uZCsYXj yLw8upRworSmyPD6zKL VzwtvpUPHxaE8rCVEtz PVauTjgLS5xMBXvtewg d181OgYgBNL8OCEbmNO sI6QkcW3qQgRqBUZuHU UkV1ItjUSdIRynY588P DldHqQ9QXVzwuGoR6Uz NOYpgDraSeR9u6W8Ij9 Ta1CqxsoaGPN7BMtcUS N3EkDcKzYzNnM9Y0XcH dy3IOZpvLlzMU3mF9Iv IQQgrhxmykfsrMS2HSV aDWTinU87gWWxXTksHy 4ge0U4z069YXHkKPPcv L96Zt3jpFvaOVFbkQAO uU2geoswt6mzbqxbIuR rQNXsPZs7WUv5KVVogV tfNzDsIKG1ZwZ3PZK9t WIdtD8zdYlwaygjhU3f Oyc+Y45bpA5oLRI4RNG 4vctsUVTloyIhBA18DB 00X9QeGroygOHznDU+P RUbvuSldRucPF9cVtXy a3ydl0OlZNebD1IiRBY rWFpgDey6BYTxNTM3tC S8hO9vPZUyXQiwe4V7p UZ9W9GydqUifd2ck1da PGPgIFjvP40omACrg2D 3OLVgmYL5AQVrcFbaGp EkjM88Xeq+PGNvbGdyb 9UxGvgja0yxv2ffvFk5 IjMwJSIgdmFsaWduPSJ 9l3MuDp60Y04yKXdbNN RoPSIxNSUiIHZhbGlnb l4ieI2gNn0+PGNvbCB3 rUW9bV6rUCJsGrE6HQc cV231KtWvzFFdYnqww3 qtl8jhxBg8MxDjMKAgw rSxyPhsQNS4w9SrUa92 U39jTNzeEBBhWTXqWOK eCJIvqFjezo3nnK9zWy 8+XQ2xc2xmyq96tV02z HI+EGItRGE5zWcqDZfz RLVynG8uCFyfLiX4LLN pOqFemI91fYDtFJluRr 4fqEgwnOhqBQ5mGDOfx mkor545McQdf9eoQLNw tNAsLKxyWWQ1J27uw1E 5LCOeDJGoHIT7xCV5lN 1hbGlnbjogbGVmdDsgd xIexAfkIFegJCxvU815 IHRvcDsnPlBhdGllbnQ tUzErPOk9P1UlDgp5IX ZccDvfDG6vmFXqFQlxD t2svGqspSueTW7zDYXt npfen181QbYxf0tiRCV leOXpRBhzFPA6K82ks0 F7YDEdJEBbROP9yOA9k S8wpIxlloimdSExnJot aqVgvZjdFRorOQzrO88 6IHRvcDsnPkJpcnRoIE DfpBW7YJ41TH23zKHsc 5C0gBB5J0CtDQKpxmpr aemebDK0KOJvAUAsrU1 0Zy0xgFzjAv0nOIQqWH H2TYZypGYdQ2LpgV9pY rMaMSKqLSMfR7OltOMm OBmwV541BQdxOdM4ZXV jsnLoG6YaMEYqzYgkZq A0r2A2Oo6UL9Y9MT71B B75uBCzk4H9nYF1Q4Um YDMuksqytottfIG9RZW fNIBnlL44Bw6zvLcdRy 8cDODzURR9DLOlbECzH 0WlzB1dQbRyZYJbMPFt I8IgbZSfFKzaA489TXu cSiZ6HORggeTcG3DkCH LtvPsfJmA7e0J4Mv7KX Mg8DO44SH60nEPxm7O3 iVK8W6FpKTXkexkoldr knIP3DOHtIYKbmJ45Ey 5twBryQf8mEDNyZSV9E VTqoJGrQ7LufE8xPkCd WRVdYFBiH5AaoBRvFRz pT483KXwoBfA0JKMgon MxE7WsTBXpxInsEqN8a 1P7An7YVGYwSO28NPA1 pDL5MW62LF95K1FqIqt vdGFibGU+PHRhYmxlIH dpZHRoPScxMDAlJyBzd TgaUG4wFb8xNCCzLNHk pBfxsSCrHdAse2scJOV yMTbnPN6ehBvdQ1SzeF M3MFDaf5r4Bv82H11tJ 3JvdXA+PTQfmZS1vXG9 oB7jXbYzClB2WElcQ82 6HtPeyUSlGdcyc6rya9 rtsAh4QfJ0HYReblMwq WdiNAT6s7PoQn51E65c IHdpZHRoPSIxNSUiIHZ nuJuloj2meL9hYm4+PG CqhPB3iMG9dC0mMgFsI mC5GAolY335BxEeoWQa Iocqt1kby6wrqYx4BeM qIBZxswMoiQfnDQR3a9 UrZr16W3WfkTtsh3BtT js3wf62vDDbm5O2zDH0 L7QqYVIjaovxuXWqiUl rEG4dHGYcncguLKYbqU 1yQWXqO6r0KvXgLzQ7W KgnY9VcunH0JJAzvEVq ZQfeAXM3Z12ij9D5FZJ iPGMxVNP5bIL8tH6pbR lnbjogbGVmdDsgdmVyd OwsRKtwQXwyB727CRXi yMzzEKIhzO0pKWDzlYM zyNinDX0yBBRgqpyhWd 1ZRVJTLCBNQVJZIEFMT GLORK86EB93hLDuq1W3 kQS8Y4EnZBPasjntuwc qeYM4FBImQRXmiN66oW WcTMrhCt4nx2F2x511M XSlGKMhlQ39Fi9mdFos KLNvsJWPhW8zttbmf6y blglgCpZdWYQtGVc7FZ b6KMFvkSdsKwOcSOK7S qH8WIB4gGJvsW7zbIsz hrdpzP7cMit+MDkvMjQ iMCt7XyegoBW+PHRkIH J9lTlsPHmrFDYbiF0zV TRmH6w3WkPmLcE4NRsj C4LtOAGnbpidSc25iD7 pYpKrYgK4CQmbP7Qvqx C6RWUlbEIzWRjlIQU8Q 06ln9B5XGGjNZRvXWD0 vEC1fR9jgZwiptdleNZ mdDsgdmVydGljYWwtYW cnB459JJOksUgeRtp4G LvrQUIsSI31BN57wWBe h6Z0qWH0A9TrFBYafqo uixrbnVB9LWQnZTFscG 18lTRbOVdkJs2qp0W4p 107RABoLQWxvE58Jv7t kTmaFHChnXPTpG4jwwz ex7jneldwTrTeZRIgWQ n3PJf5ZXUchTgiKkMrB KA2FyL1OVX9aPRmuJ4u pAxuuxykcG1bBxf+RkV AWUfNYF32BK18sBKgo7 L9zOF4Z9WzXFFsridzd upxrEP3VTHeMZKqvP03 kUKjCEnwSp8sa4U3m18 0MZByWELcuW06Zf1wxU hjPFAjcFDOzE3jckkgy 1kqgjzpMtWiVHNmTKm2 GEz4AUTvjQylGvBjAOQ 7WiS8SDY0jQMlmY4vxG wxjvlpbH5jDoi+T1A8L 3RkPjwvdHI+MU99ABVj MU55nJHhuGJau8clbOj 6IdPtGGAoANW3kBzwXZ tni3UcIGMxU34mkOWim 3P4JUZrkTjafCViZeVu lCR5xR0nIZoaoxflt7x sazsjYkqyp2zjoz22zC 79E51fCJznXKLcABOhV DQoPZDlsBoyvl9qlT4t Ii8+BVOcwLN7yJI0qM5 bEfQyShN3PKurT360Ol BmpAFjWxngn6mqy5iuj Kk0QfVtSVTtgeCdfRqx WVU0c5IoDx81E46kPEf pZHRoPSIyMCUiIHZhbG awgj1noS8fGj2+PC9jb 8rgzr51yT62kMP+PHRk EWI4yRxgFAxhXLFuhP2 oFRrcAnP3RXJyZrSutN 41fJOjYNjrZo4fxEpfy RxoJL5sDXRvqesno639 TfDun0ofVGRwbGTiVIy bKMN9I73mp2G6VMEcTF FcOHT3rFT1kH3ofShue jogbGVmdDsgdmVydGlj RCuiSQfrD052SEKyzIf iEyYwhUYdZ9nsatRBNA 1lOjwvdGQ+QJAeHQB6b TlbTVfuTVLtxZ6mNCPd K0l6QuVxEnE5FHnoV6S sldD5MYQccKJcSZVnhS KXuK4gnvwst3gdqzirR bJeEUJqMAm3ANd5EAXw vCjfPrKoNJZ5AgA1UNP 9jKTnyX4bbMucvvcjfN 9wOyc+RklOOjwvdGQ+P QNaOJJ3fSexTSijFHMx gC0sGZVdE9m1ZkMuMqL 0GGrjA9YdwaX1TTKgaQ VgSOErtHOOjH6qkuxjz 4nnodagZlVoCLIuJFl0 ICa9GMBgfFerCjYrISR 6YbO6DTA4yULvmK3mrD fgmtaylO2xQmp+TVJOO jwvdGQ+MAXiJDQ0hOqa DAhrMBCydD3cVFVjK2u 5VzQhXdC9BDdoW9Vsue N2JEUxzWBcCJLafMABu H8extdbw1rsgqvfBgJg KGImBTl6HSd5AXYelTw hQpNaDMP4QyN1KAF6dC LmiQ6azUzipzfxyR4xX yc+VAJ5MWG1YE60UU50 W9VuZqbqcPLhpZS+PHR hYmxlIHdpZHRoPScxMD DzIyXuoRdrXM2yWx4hW GVyLWNvbGxhcHNlOiBj b2x (more content not included)... Normal [facility] ED Clinical Summaryon 2021 ED Clinical Summary [facility] ? Urgent Care [address] [place] [address] Clinical Summary PERSON INFORMATION Name: MADDIE BA Age: 76 Years Sex: FEMALE : 1945 MRN: Acct#: Visit Reason: UC - Rash; SKIN PROBLEM Arrival: 12/09/2021 10:05:03 Discharge: 12/09/2021 10:34:00 LOS: 000 00:29 Check In: 12/09/2021 10:05:03 Checkout: 12/09/2021 10:34:00 Address: [facility] [address] PCP: Cr Ferrari PROVIDER INFORMATION Provider Role Assigned Unassigned Kiley Barton [employer] Nurse 12/09/2021 10:07:51 Aureliano Olmos PA-C ED PA 12/09/2021 10:17:47 VITALS INFORMATION Vital Sign Triage Latest Temperature Tympanic Temperature Temporal Artery Pulse Rate O2 Sat 96 % 96 % Respiratory Rate Blood Pressure /80 mmHg /80 mmHg MEDICAL INFORMATION Medications Given: Medication Dose Route methylPREDNISolone (SOLU-Medrol) 80 mg IM Allergy Information: No Known Medication Allergies PHYSICIAN DOCUMENTATION DISCHARGE INFORMATION: Discharge Disposition: Home Discharge Location: Home PATIENT EDUCATION INFORMATION Instructions: Poison Monique Dermatitis, Ulwl-lz-Xkfl Follow-Up: With: Address: When: Cr Ferrari [address] [place] [id number] [facility] (1) Within 3 to 5 days Comments: Please follow-up with Dr. Ferrari, call the office schedule an appointment to be seen in 3 to 5 days for skin check, and blood pressure monitoring, apply the steroid cream as directed, take mmlk-lhh-shmvyar antihistamine medication to help with the itchiness, and return back to the urgent care center for any worsening symptoms, concerns, or complications. DIAGNOSIS: 1:Poison monique dermatitis; 2:Elevated blood pressure reading with diagnosis of hypertension Patient Understands: Yes - Patient/family/animal care provider verbalizes understanding of instructions given Comment: Normal [facility] ED Patient Summaryon 022 ED Patient Summary [facility] ? Urgent Care [address] [place] [address] PATIENT DISCHARGE INSTRUCTIONS Patient Information Name: MADDIE BA Age: 76 Years Date of : 1945 Reason For Visit: UC - Rash; SKIN PROBLEM Arrival Time: 12/09/2021 10:05:03 Primary Care Physician: Cr Ferrari Attending Physician: Aureliano Olmos PA-C Comment: Patient Education With: Address: When: Cr Ferrari [address] [place] [address] [facility] (1) Within 3 to 5 days Comments: Please follow-up with Dr. Ferrari, call the office schedule an appointment to be seen in 3 to 5 days for skin check, and blood pressure monitoring, apply the steroid cream as directed, take wcmx-squ-ljyesac antihistamine medication to help with the itchiness, and return back to the urgent care center for any worsening symptoms, concerns, or complications. Poison Monique Dermatitis Poison monique dermatitis is redness and soreness of the skin caused by chemicals in the leaves of the poison monique plant. You may have very bad itching, swelling, a rash, and blisters. What are the causes? ? Touching a poison monique plant. ? Touching something that has the chemical on it. This may include animals or objects that have come in contact with the plant. What increases the risk? ? Going outdoors often in wooded or marshy areas. ? Going outdoors without wearing protective clothing, such as closed shoes, long pants, and a long-sleeved shirt. What are the signs or symptoms? ? Skin redness. ? Very bad itching. ? A rash that often includes bumps and blisters. ? The rash usually appears 48 hours after exposure, if you have been exposed before. ? If this is the first time you have been exposed, the rash may not appear until a week after exposure. ? Swelling. This may occur if the reaction is very bad. Symptoms usually last for 1?2 weeks. The first time you develop this condition, symptoms may last 3?4 weeks. How is this treated? This condition may be treated with: ? Hydrocortisone cream or calamine lotion to relieve itching. ? Oatmeal baths to soothe the skin. ? Medicines, such as [id number] antihistamine tablets. ? Oral steroid medicine for more severe reactions. Follow these instructions at home: Medicines ? Take or apply [id number]-[id number] and prescription medicines only as told by your doctor. ? Use hydrocortisone cream or calamine lotion as needed to help with itching. General instructions ? Do not scratch or rub your skin. ? Put a cold, wet cloth (cold compress) on the affected areas or take baths in cool water. This will help with itching. ? Avoid hot baths and showers. ? Take oatmeal baths as needed. Use colloidal oatmeal. You can get this at a pharmacy or grocery store. Follow the instructions on the package. ? While you have the rash, wash your clothes right after you wear them. ? Keep all follow-up visits as told by your health care provider. This is important. How is this prevented? ? Know what poison monique looks like, so you can avoid it. ? This plant has three leaves with flowering branches on a single stem. ? The leaves are glossy. ? The leaves have uneven edges that come to a point at the front. ? If you touch poison monique, wash your skin with soap and water right away. Be sure to wash under your fingernails. ? When hiking or camping, wear long pants, a long-sleeved shirt, tall socks, and hiking boots. You can also use a lotion on your skin that helps to prevent contact with poison monique. ? If you think that your clothes or outdoor gear came in contact with poison monique, rinse them off with a garden hose before you bring them inside your house. ? When doing yard work or gardening, wear gloves, long sleeves, long pants, and boots. Wash your garden tools and gloves if they come in contact with poison monique. ? If you think that your pet has come into contact with poison monique, wash him or her with pet shampoo and water. Make sure to wear gloves while washing your pet. Contact a doctor if: ? You have open sores in the rash area. ? You have more redness, swelling, or pain in the rash area. ? You have redness that spreads beyond the rash area. ? You have fluid, blood, or pus coming from the rash area. ? You have a fever. ? You have a rash over a large area of your body. ? You have a rash on your eyes, mouth, or genitals. ? Your rash does not get better after a few weeks. Get help right away if: ? Your face swells or your eyes swell shut. ? You have trouble breathing. ? You have trouble swallowing. These symptoms may be an emergency. Do not wait to see if the symptoms will go away. Get medical help right away. Call your local emergency services (911 in the [place] Do not drive yourself to the hospital. Summary ? Poison monique dermatitis is redness and soreness of (more content not included)... Normal [facility] [place] 022 Urgent Care Record [facility] ? Urgent Care [address] [place] [address] PATIENT DISCHARGE INSTRUCTIONS Patient Information Name: MADDIE BA Age: 76 Years Date of : 1945 [facility]: [id number] Reason For Visit: UC - Rash; SKIN PROBLEM Arrival Time: 12/09/2021 10:05:03 Primary Care Physician: Cr Ferrari Attending Physician: Aureliano Olmos PA-C Comment: Visit Diagnosis: Diagnoses This Visit Elevated blood pressure reading with diagnosis of hypertension (I10) Poison monique dermatitis (L23.7) UC - Rash ([id number]) If you received any narcotics, sedation, or any other medication that causes drowsiness for the next 24 hours, unless otherwise directed: ? Do not drive a car. ? Do not operate machinery such as power tools, lawn mowers, drills, sewing machines, or stoves ? Avoid alcoholic beverages and drugs for allergies, nerves, or sleep ? Do not make important personal or business decisions or sign any legal documents With: Address: When: Cr Ferrari [address] [place] [id number] Business (1) Within 3 to 5 days Comments: Please follow-up with Dr. Ferrari, call the office schedule an appointment to be seen in 3 to 5 days for skin check, and blood pressure monitoring, apply the steroid cream as directed, take [id number] antihistamine medication to help with the itchiness, and return back to the urgent care center for any worsening symptoms, concerns, or complications. Medication Information: The exam and treatment you received today in the [facility] were for an urgent problem and are not intended as complete care. It is important for you to follow up with a doctor, nurse practitioner, or physician?s food service assistant for ongoing care. If your symptoms become worse or you do not improve as expected and you are unable to reach your usual health care provider, you should return to the Emergency Department, we are available 24 hours a day. For those patients who have received Radiology results, the interpretation of your X-ray as given to you by our Urgent Care physician is only a preliminary report. The Radiologist will review your films and if there is a change in the diagnosis you will be notified by phone. Please make sure you have provided a working phone number so we can reach you if necessary. In the event that you had a lab culture while you were a patient in the Urgent Care, you will be notified by phone if there is a need to change your antibiotic. Please make sure you have provided a working phone number so we can reach you if necessary. [facility] has provided you with a complete list of medications post discharge. Please inform your criminal profiler/provider of your visit and for further instruction on these medications. Any specific questions regarding your chronic medications and dosages should be discussed with your primary care physician(s) and/or pharmacist. New Medications [facility], [address], [place] [id number], [phone] hydrocortisone topical (hydrocortisone 2.5% topical cream) 1 sharon Topical 3 times a day for 7 Days. Refills: 0. Other Medications methylPREDNISolone (SOLU-Medrol) 80 Milligram Intramuscular once. Medications to Continue That Have Not Changed Other Medications amLODIPine (amLODIPine 5 mg oral tablet) TAKE 1 TABLET BY MOUTH ONCE DAILY. estradiol topical (estradiol 0.1 mg/g vaginal cream) APPLY 1 GRAM VAGINALLY ONCE WEEKLY. Visit Information Allergies: Substance Reaction Symptoms Type Comments No Known Medication Allergies Drug Vital Signs: Vitals and Measurements this Visit (last charted value for your 12/09/2021 visit) Vital Signs This Visit Temperature Oral: 36.5 DegC Peripheral Pulse Rate: 75 bpm Respiratory Rate: 16 br/min Systolic Blood Pressure: 122 mmHg Diastolic Blood Pressure: 80 mmHg SpO2: 96 % Oxygen Therapy: Room air Measurements This Visit Height/Length Measured: 152 cm Weight Measured: 55.34 kg Body Mass Index: 23.95 kg/m2 Problems List: Problem Onset Comments Hypertension Patient Education Poison Monique Dermatitis Poison monique dermatitis is redness and soreness of the skin caused by chemicals in the leaves of the poison monique plant. You may have very bad itching, swelling, a rash, and blisters. What are the causes? ? Touching a poison monique plant. ? Touching something that has the chemical on it. This may include animals or objects that have come in contact with the plant. What increases the risk? ? Going outdoors often in wooded or marshy areas. ? Going outdoors without wearing protective clothing, such as closed shoes, long pants, and a long-sleeved shirt. What are the signs or symptoms? ? Skin redness. ? Very bad itching. ? A rash that often includes bumps and blisters. ? The rash usually appears 48 hours after exposure, (more content not included)... Normal [facility] CBC AUTO DIFFon 10-23-2021 BASO # 0.0 103/ul Normal 0.0-0.1 [place] Comment on above: Performed By: #### C BC #### [facility] [address] [place], [place] [address] Dr. Maxx Clemons Basophils/100 WBC (Bld) 0.3 % Normal 0.2-2.0 [place] Comment on above: Performed By: #### C BC #### [facility] [address] [place] [address] Dr. Maxx Clemons EO # 0.1 103/ul Normal 0.0-0.7 [facility] Comment on above: Performed By: #### C BC #### [facility] [address] [place] [address] Dr. Maxx Clemons Eosinophils/100 WBC (Bld) 0.5 % Critically low 0.9-7.0 [facility] Comment on above: Performed By: #### C BC #### [facility] [address] [place] [address] Dr. Maxx Clemons Erythrocyte distribution width (RBC) [Ratio] 12.0 % Normal 11.0-15.0 [facility] Comment on above: Performed By: #### C BC #### [facility] [address] [place] [address] Dr. Maxx Clemons Hematocrit (Bld) [Volume fraction] 39.6 % Normal 36.0-48.0 [place] Comment on above: Performed By: #### C BC #### [facility] [address] [place] [address] Dr. Maxx Clemons Hemoglobin (Bld) [Mass/Vol] 12.5 g/dL Normal 12.0-16.0 [place] Comment on above: Performed By: #### C BC #### [facility] [address] [place] [address] Dr. Maxx Clemons IG # 0.02 10e3/ul Normal 0.00-0.03 [facility] Comment on above: Performed By: #### C BC #### [facility] [address] [place] [address] Dr. Maxx Clemons IG % 0.2 % Normal 0.0-0.5 [facility] Comment on above: Performed By: #### C BC #### [facility] [address] [place] [address] Dr. Maxx Clemons LYMPH # 1.6 103/ul Normal 1.2-3.8 [facility] Comment on above: Performed By: #### C BC #### [facility] [address] [place] [address] Dr. Maxx Clemons Lymphocytes/100 WBC (Bld) 14.4 % Critically low 20.5-60.0 [facility] Comment on above: Performed By: #### C BC #### [facility] [address] [place] [address] Dr. Maxx Clemons MANUAL DIFF REQ NO Normal [facility] Comment on above: Performed By: #### C BC #### [facility] [address] [place] [address] Dr. Maxx Clemons MCH (RBC) [Entitic mass] 29.3 pg Normal 26.7-34.0 [facility] Comment on above: Performed By: #### C BC #### [facility] [address] [place] [address] Dr. Maxx Clemons MCHC (RBC) [Mass/Vol] 31.6 g/dL Normal 29.9-35.2 [facility] Comment on above: Performed By: #### C BC #### [facility] [address] [place] [address] Dr. Maxx Clemons MCV (RBC) [Entitic vol] 92.7 fL Normal 81.0-99.0 [facility] Comment on above: Performed By: #### C BC #### [facility] [address] [place] [address] Dr. Maxx Clemons MONO # 0.7 103/ul Normal 0.3-0.8 [facility] Comment on above: Performed By: #### C BC #### [facility] [address] [place] [address] Dr. Maxx Clemons Monocytes/100 WBC (Bld) 6.1 % Normal 1.7-12.0 [facility] Comment on above: Performed By: #### C BC #### [facility] [address] [place] [address] Dr. Maxx Clemons NEUT # 8.5 103/ul Critically high 1.4-6.[address] [facility] Comment on above: Performed By: #### C BC #### [facility] [address] [place] [address] Dr. Maxx Clemons Neutrophils/100 WBC (Bld) 78.5 % Critically high 43.0-75.0 [place] Comment on above: Performed By: #### C BC #### [facility] [address] [place] [address] Dr. Maxx Clemons Platelet mean volume (Bld) [Entitic vol] 10.5 fL Normal 9.5-13.5 [place] Comment on above: Performed By: #### C BC #### [facility] [address] [place] [address] Dr. Maxx Clemons PLT 318 103/ul Normal 150-450 [place] Comment on above: Performed By: #### C BC #### [facility] [address] [place] [address] Dr. Maxx Clemons RBC 4.27 106/ul Normal 4.20-5.40 [place] Comment on above: Performed By: #### C BC #### [facility] [address] [place] [address] Dr. Maxx Clemons WBC 10.8 103/ul Normal 4.0-11.0 [place] Comment on above: Performed By: #### C BC #### [facility] [address] [place] [address] Dr. Maxx Clemons CPKon 10-23-2021 CK [Catalytic activity/Vol] 56 U/L Normal 26-192 [place] Comment on above: Performed By: #### C K, CMP, TSH, CRP #### [facility] [address] [place] [address] Dr. Maxx Clemons CRPon 10-23-2021 CRP 3.6 mg/dL Critically high <=1.[address] [facility] Comment on above: Performed By: #### L IPID, BMP #### [facility] [address] [place] [address] Dr. Maxx Clemons PROF 14(COMP METB)on 022 Albumin [Mass/Vol] 3.4 g/dL Normal 3.4-5.0 [facility] Comment on above: Performed By: #### C K, CMP, TSH, CRP #### [facility] [address] [place] [address] [address] Maxx Clemons Albumin/Globulin [Mass ratio] 0.7 {ratio} Normal [place] Comment on above: Performed By: #### C K, CMP, TSH, CRP #### [facility] [address] [address] [address] Maxx Clemons ALP [Catalytic activity/Vol] 61 U/L Normal 46-116 [place] Comment on above: Performed By: #### C K, CMP, TSH, CRP #### [facility] [address] [address] [address] Maxx Clemons ALT [Catalytic activity/Vol] 17 U/L Normal 14-59 [place] Comment on above: Performed By: #### C K, CMP, TSH, CRP #### [facility] [address] [place] [address] Dr. Maxx Clemons Anion gap [Moles/Vol] 11.4 mmol/L Normal [facility] Comment on above: Performed By: #### C K, CMP, TSH, CRP #### [facility] [address] [address] [address] Maxx Clemons AST [Catalytic activity/Vol] 17 U/L Normal 15-37 [place] Comment on above: Performed By: #### C K, CMP, TSH, CRP #### [facility] [address] [address] [address] Maxx Clemons Bilirubin [Mass/Vol] 0.4 mg/dL Normal 0.2-1.0 [place] Comment on above: Performed By: #### C K, CMP, TSH, CRP #### [facility] [address] [address] [address] Maxx Clemons Calcium [Mass/Vol] 8.3 mg/dL Critically low 8.5-10.1 [facility] Comment on above: Performed By: #### C K, CMP, TSH, CRP #### [facility] [address] [address] [address] Mxax Clemons Chloride [Moles/Vol] 97 mmol/L Critically low 98-107 [place] Comment on above: Performed By: #### C K, CMP, TSH, CRP #### [facility] [address] [address] [address] Maxx Clemons CO2 [Moles/Vol] 31.2 mmol/L Normal 21.0-32.0 [facility] Comment on above: Performed By: #### C K, CMP, TSH, CRP #### [facility] [address] [place] [address] Dr. Maxx Clemons Creatinine [Mass/Vol] 0.57 mg/dL Normal 0.55-1.02 [place] Comment on above: Performed By: #### C K, CMP, TSH, CRP #### [facility] [address] [place] [address] Dr. Maxx Clemons EGFR-AF UKRAINIAN >60 Normal >=60 [facility] Comment on above: Performed By: #### C K, CMP, TSH, CRP #### [facility] [address] [address] [address] Maxx Clemons EGFR-NON AF UKRAINIAN >60 Normal >=60 [place] Comment on above: Performed By: #### C K, CMP, TSH, CRP #### [facility] [address] [place] [address] Dr. Maxx Clemons Globulin (S) [Mass/Vol] 4.7 g/dL Normal [place] Comment on above: Performed By: #### C K, CMP, TSH, CRP #### [facility] [address] [address] [address] Maxx Clemons Glucose [Mass/Vol] 112 mg/dL Critically high 74-106 [facility] Comment on above: Performed By: #### C K, CMP, TSH, CRP #### [facility] [address] [place] [address] Dr. Maxx Clemons Potassium [Moles/Vol] 3.6 mmol/L Normal 3.5-5.1 [place] Comment on above: Performed By: #### C K, CMP, TSH, CRP #### [facility] [address] [place] [address] Dr. Maxx Clemons Protein [Mass/Vol] 8.1 g/dL Normal 6.1-8.2 [facility] Comment on above: Performed By: #### C K, CMP, TSH, CRP #### [facility] [address] [address] [address] Maxx Clemons Sodium [Moles/Vol] 136 mmol/L Normal 136-145 [facility] Comment on above: Performed By: #### C K, CMP, TSH, CRP #### [facility] [address] [address] [address] Maxx Clemons Urea nitrogen [Mass/Vol] 11.0 mg/dL Normal 7.0-18.0 [place] Comment on above: Performed By: #### C K, CMP, TSH, CRP #### [facility] [address] [address] [address] Maxx Clemons Urea nitrogen/Creatinine [Mass ratio] 19.3 mg/mg Normal [place] Comment on above: Performed By: #### C K, CMP, TSH, CRP #### [facility] [address] [address] [address] Maxx Clemons SED RATE [facility] 2021 SED RATE 47 mm/hr Critically high <=30 [facility] Comment on above: Performed By: #### S EDR #### [facility] [address] [address] [address] Maxx Clemons TSHon 10-23-2021 TSH 1.204 uIU/mL Normal 0.470-4.680 [facility] Comment on above: Performed By: #### C K, CMP, TSH, CRP #### [facility] [address] [address] [address] Maxx Clemons TSH RANGE SEE BELOW Normal [place] Comment on above: Result Comment: <0.3 4 UIU/ml HYPERTHYROID 0.34-5.60 UIU/ml EUTHYROID >5.60 UIU/ml HYPOTHYROID Performed By: #### C K, CMP, TSH, CRP #### [facility] [address] [address] [address] Maxx Clemons VITAMIN D 25 OHon 10-23-2021 VIT D 25-OH 57.4 ng/mL Normal [place] Comment on above: Performed By: #### V ITAD #### [facility] [address] [place] [address] Dr. Maxx Clemons VIT D RANGES SEE BELOW Normal [place] Comment on above: Result Comment: <20 ng/mL Vit D deficient 20 - <30 ng/mL Vit D insufficient 30 - 100 ng/mL Vit D sufficient >100 ng/mL Potential Toxicity Performed By: #### V ITAD #### [facility] [address] [address] [address] Maxx Clemons SCREENING MAMMOGRAM W/SMITA, BILATERAL*on 05-30-2021 SCREENING MAMMOGRAM W/SMITA, BILATERAL* CLINICAL HISTORY: Screening Mammogram COMPARISON: Priors from 2019, 2018, 2017, 2016 TECHNIQUE: 2D and 3D mammogram imaging of both breasts was performed. RESULT: DENSITY: Heterogeneously dense, which may obscure small masses. There is no suspicious mass, asymmetry, architectural distortion, or calcification. No significant change since the prior mammograms. IMPRESSION: BIRADS 1 : NEGATIVE, NORMAL INTERVAL FOLLOW UP FOLLOW UP: 12 months DENSITY: Heterogeneously dense MAMMOGRAPHY IS VERY IMPORTANT TO YOUR HEALTH. THE CURRENT [place] [employer] GUIDELINES RECOMMENDS ANNUAL MAMMOGRAPHY BEGINNING AT AGE 40 THIS FACILITY USES A REMINDER SYSTEM TO ENSURE ALL PATIENTS RECEIVE REMINDER NOTIFICATIONS AT THE APPROPRIATE TIME BASED ON THE RECOMMENDATIONS OF THIS EXAM. Board Certified Radiologist. Accredited by the ACR and FDA. Report reported and signed by Maurilio Keenan on 05/31/2021 0926 Normal [facility] [employer] CBC AUTO DIFFon 04-08-2021 BASO # 0.0 103/ul Normal 0.0-0.1 [place] Comment on above: Performed By: #### L IPID, BMP #### [facility] [address] [place] [address] Dr. Maxx Clemons Basophils/100 WBC (Bld) 0.4 % Normal 0.2-2.0 [place] Comment on above: Performed By: #### L IPID, BMP #### [facility] [address] [place] [address] Dr. Maxx Clemons EO # 0.2 103/ul Normal 0.0-0.7 [facility] Comment on above: Performed By: #### L IPID, BMP #### [facility] [address] [place] [address] Dr. Maxx Clemons Eosinophils/100 WBC (Bld) 3.6 % Normal 0.9-7.0 [facility] Comment on above: Performed By: #### L IPID, BMP #### [facility] [address] [place] [address] Dr. Maxx Clemons Erythrocyte distribution width (RBC) [Ratio] 13.0 % Normal 11.0-15.0 [facility] Comment on above: Performed By: #### L IPID, BMP #### [facility] [address] [place] [address] Dr. Maxx Clemons Hematocrit (Bld) [Volume fraction] 39.0 % Normal 36.0-48.0 [facility] Comment on above: Performed By: #### L IPID, BMP #### [facility] [address] [place] [address] Dr. Maxx Clemons Hemoglobin (Bld) [Mass/Vol] 12.8 g/dL Normal 12.0-16.0 [place] Comment on above: Performed By: #### L IPID, BMP #### [facility] [address] [place] [address] Dr. Maxx Clemons IG # 0.00 10e3/ul Normal 0.00-0.03 [facility] Comment on above: Performed By: #### L IPID, BMP #### [facility] [address] [place] [address] Dr. Maxx Clemons IG % 0.0 % Normal 0.0-0.5 [facility] Comment on above: Performed By: #### L IPID, BMP #### [facility] [address] [place] [address] Dr. Maxx Clemons LYMPH # 2.1 103/ul Normal 1.2-3.8 [facility] Comment on above: Performed By: #### L IPID, BMP #### [facility] [address] [place] [address] Dr. Maxx Clemons Lymphocytes/100 WBC (Bld) 43.2 % Normal 20.5-60.0 [place] Comment on above: Performed By: #### L IPID, BMP #### [facility] [address] [place] [address] Dr. Maxx Clemons MANUAL DIFF REQ NO Normal [facility] Comment on above: Performed By: #### L IPID, BMP #### [facility] [address] [place] [address] Dr. Maxx Clemons MCH (RBC) [Entitic mass] 31.1 pg Normal 26.7-34.0 [facility] Comment on above: Performed By: #### L IPID, BMP #### [facility] [address] [place] [address] Dr. Maxx Clemons MCHC (RBC) [Mass/Vol] 32.8 g/dL Normal 29.9-35.2 [place] Comment on above: Performed By: #### L IPID, BMP #### [facility] [address] [place] [address] Dr. Maxx Clemons MCV (RBC) [Entitic vol] 94.7 fL Normal 81.0-99.0 [place] Comment on above: Performed By: #### L IPID, BMP #### [facility] [address] [place] [address] Dr. Maxx Clemons MONO # 0.4 103/ul Normal 0.3-0.8 [place] Comment on above: Performed By: #### L IPID, BMP #### [facility] [address] [place] [address] Dr. Maxx Clemons Monocytes/100 WBC (Bld) 8.0 % Normal 1.7-12.0 [facility] Comment on above: Performed By: #### L IPID, BMP #### [facility] [address] [place] [address] Dr. Maxx Clemons NEUT # 2.1 103/ul Normal 1.4-6.5 [place] Comment on above: Performed By: #### L IPID, BMP #### [facility] [address] [address] [address] Maxx Clemons Neutrophils/100 WBC (Bld) 44.8 % Normal 43.0-75.0 [place] Comment on above: Performed By: #### L IPID, BMP #### [facility] [facility] [address] [address] [address] Maxx Clemons Platelet mean volume (Bld) [Entitic vol] 10.5 fL Normal 9.5-13.5 [place] Comment on above: Performed By: #### L IPID, BMP #### [facility] [address] [address] [address] Maxx Clemons PLT 198 103/ul Normal 150-450 [place] Comment on above: Performed By: #### L IPID, BMP #### [facility] [address] [address] [address] Maxx Clemons RBC 4.12 106/ul Critically low 4.20-5.40 [facility] Comment on above: Performed By: #### L IPID, BMP #### [facility] [address] [address] [address] Maxx Clemons WBC 4.8 103/ul Normal 4.0-11.0 [place] Comment on above: Performed By: #### L IPID, BMP #### [facility] [address] [address] [address] Maxx Clemons LIPID PROFILEon 04-08-2021 CHOL-HDL RATIO NORM SEE BELOW Normal [facility] Comment on above: Result Comment: 3.3 - 4.4 LOW RISK 4.4 - 7.1 AVERAGE RISK 7.1 - 11.0 MODERATE RISK >11.0 HIGH RISK Performed By: #### L IPID, BMP #### [facility] [address] [place] [address] Dr. Maxx Clemons Cholesterol [Mass/Vol] 211 mg/dL Critically high <=200 [place] Comment on above: Performed By: #### L IPID, BMP #### [facility] [address] [address] [address] Maxx Clemons Cholesterol in HDL [Mass/Vol] 73 mg/dL Normal [place] Comment on above: Performed By: #### L IPID, BMP #### [facility] [address] [place] [address] Dr. Maxx Clemons Cholesterol in LDL [Mass/Vol] 131.0 mg/dL Normal [place] Comment on above: Performed By: #### L IPID, BMP #### [facility] [address] [place] [address] Dr. Maxx Clemons Cholesterol.total/Chol esterol in HDL [Mass ratio] 2.9 {ratio} Normal [place] Comment on above: Performed By: #### L IPID, BMP #### [facility] [address] [place] [address] Dr. Maxx Clemons HDL NORMAL > or = 60 mg/dl - LOW CARDIOVASCULAR RISK <40 mg/dl - HIGH CARDIOVASCULAR RISK Normal [place] Comment on above: Performed By: #### L IPID, BMP #### [facility] [address] [place] [address] Dr. Maxx Clemons LDL CALC NORMAL SEE BELOW Normal [facility] Comment on above: Result Comment: <100 mg/dl OPTIMAL 100 - 129 mg/dl NEAR OR ABOVE OPTIMAL 130 - 159 mg/dl BORDERLINE HIGH 160 - 189 mg/dl HIGH >190 mg/dl VERY HIGH Performed By: #### L IPID, BMP #### [facility] [address] [place] [address] Dr. Maxx Clemons Triglyceride [Mass/Vol] 35 mg/dL Normal <=150 [facility] Comment on above: Performed By: #### L IPID, BMP #### [facility] [address] [place] [address] Dr. Maxx Clemons VLDL CALC 7.0 mg/dL Normal [place] Comment on above: Performed By: #### L IPID, BMP #### [facility] [address] [place] [address] Dr. Maxx lCemons PROF CHEM 8 (BAS METB)on Anion gap [Moles/Vol] 12.4 mmol/L Normal Th [facility] Comment on above: Performed By: #### L IPID, BMP #### [facility] [address] [place] [address] Dr. Maxx Clemons Calcium [Mass/Vol] 8.4 mg/dL Normal 8.4-10.2 [facility] Comment on above: Performed By: #### L IPID, BMP #### [facility] [address] [place] [address] Dr. Maxx Clemons Chloride [Moles/Vol] 103 mmol/L Normal 98-107 [place] Comment on above: Performed By: #### L IPID, BMP #### [facility] [address] [place] [address] Dr. Maxx Clemons CO2 [Moles/Vol] 29.5 mmol/L Normal 22.0-30.0 [facility] Comment on above: Performed By: #### L IPID, BMP #### [facility] [address] [place] [address] Dr. Maxx Clemons Creatinine [Mass/Vol] 0.69 mg/dL Normal 0.52-1.04 [place] Comment on above: Performed By: #### L IPID, BMP #### [facility] [address] [place] [address] Dr. Maxx Clemons EGFR-AF UKRAINIAN >60 Normal >=60 [facility] Comment on above: Performed By: #### L IPID, BMP #### [facility] [address] [place] [address] Dr. Maxx Clemons EGFR-NON AF UKRAINIAN >60 Normal >=60 [place] Comment on above: Performed By: #### L IPID, BMP #### [facility] [address] [place] [address] Dr. Maxx Clemons Glucose [Mass/Vol] 105 mg/dL Normal 74-106 [facility] Comment on above: Performed By: #### L IPID, BMP #### [facility] [address] [place] [address] Dr. Maxx Clemons Potassium [Moles/Vol] 3.9 mmol/L Normal 3.4-5.0 [place] Comment on above: Performed By: #### L IPID, BMP #### [facility] [address] [place] [address] Dr. Maxx Clemons Sodium [Moles/Vol] 141 mmol/L Normal 137-145 [facility] Comment on above: Performed By: #### L IPID, BMP #### [facility] [address] [place] [address] Dr. Maxx Clemons Urea nitrogen [Mass/Vol] 16.0 mg/dL Normal 7.0-17.0 [place] Comment on above: Performed By: #### L IPID, BMP #### [facility] [address] [place] [address] Dr. Maxx Clemons Urea nitrogen/Creatinine [Mass ratio] 23.2 mg/mg Normal [place] Comment on above: Performed By: #### L IPID, BMP #### [facility] [address] [place] [address] Dr. Maxx Clemons VITAMIN D 25 OHon 04-08-2021 VIT D 25-OH 72.6 ng/mL Normal [place] Comment on above: Performed By: #### V ITAD #### [facility] [address] [place] [address] Dr. Maxx Clemons VIT D RANGES SEE BELOW Normal [place] Comment on above: Result Comment: <20 ng/mL Vit D deficient 20 - <30 ng/mL Vit D insufficient 30 - 100 ng/mL Vit D sufficient >100 ng/mL Potential Toxicity Performed By: #### V ITAD #### [facility] [address] [place] [address] Dr. Maxx Clemons VITAMIN D 25 OHon 11-06-2020 VIT D 25-OH 92.0 ng/mL Normal [place] Comment on above: Performed By: #### V ITAD #### [facility] [address] [place] [address] Wilber Valle VIT D RANGES SEE BELOW Normal [place] Comment on above: Result Comment: <20 ng/mL Vit D deficient 20 - <30 ng/mL Vit D insufficient 30 - 100 ng/mL Vit D sufficient >100 ng/mL Potential Toxicity Performed By: #### V ITAD #### [facility] [address] [place] [address] Wilber Valle Vital Signs Date Time Vital Sign Value Performing Clinician Facility 01-15-2024 10:34-0400 Body height 154.94 cm [facility] 01-15-2024 10:34-0400 Body mass index (BMI) [Ratio] 23.5 kg/m2 [facility] 01-15-2024 10:34-0400 Body weight 56.41 kg [facility] 01-15-2024 10:34-0400 Diastolic blood pressure 79 mm[Hg] [facility] 01-15-2024 10:34-0400 Heart rate 70 /min [facility] 01-15-2024 10:34-0400 Respiratory rate 12 /min [facility] [place] 01-15-2024 10:34-0400 Systolic blood pressure 125 mm[Hg] [facility] 10-08-2023 08:12-0400 Body temperature 97.7 [degF] Thao Justin MD Work Phone: [facility] 10-08-2023 08:12-0400 Diastolic blood pressure 72 mm[Hg] Thao Justin MD Work Phone: [facility] 10-08-2023 08:12-0400 Heart rate 69 /min Thao Justin MD Work Phone: [facility] 10-08-2023 08:12-0400 Respiratory rate 18 /min Thao Justin MD Work Phone: [facility] 10-08-2023 08:12-0400 SaO2% (BldA) [Mass fraction] 99 % Thao Justin MD Work Phone: [facility] 10-08-2023 08:12-0400 Systolic blood pressure 114 mm[Hg] Thao Justin MD Work Phone: [facility] 10-07-2023 06:41-0400 Body height 152.4 cm Thao Justin MD Work Phone: [facility] 10-07-2023 06:41-0400 Body mass index (BMI) [Ratio] 23.42 kg/m2 Thao Justin MD Work Phone: [facility] 10-07-2023 06:41-0400 Body weight 54.4 kg Thao Justin MD Work Phone: [facility] 02-27-2023 10:00-0400 Body height 154.94 cm Cr Ball Other [facility] Other 02-27-2023 10:00-0400 Body mass index (BMI) [Ratio] 23.16 kg/m2 [facility] Other [facility] Other 02-27-2023 10:00-0400 Body weight 55.61 kg Cr Ball Other [facility] Other 02-27-2023 10:00-0400 Diastolic blood pressure 77 mm[Hg] Cr Ball Other [facility] Other 02-27-2023 10:00-0400 Respiratory rate 12 /min Cr [facility] Other [facility] Other 02-27-2023 10:00-0400 Systolic blood pressure 121 mm[Hg] Cr Ball Other [facility] Other 12-19-2022 11:30-0400 Body height 154.94 cm Cr [facility] Other [facility] Other 12-19-2022 11:30-0400 Body mass index (BMI) [Ratio] 23.54 kg/m2 [facility] Other [facility] Other 12-19-2022 11:30-0400 Body weight 56.52 kg Cr Ball Other [facility] Other 12-19-2022 11:30-0400 Diastolic blood pressure 73 mm[Hg] Cr Ball Other [facility] Other 12-19-2022 11:30-0400 Respiratory rate 12 /min Cr Ball Other [facility] Other 12-19-2022 11:30-0400 Systolic blood pressure 113 mm[Hg] Cr Ball Other [facility] Other 10-07-2022 11:38-0400 Body height 152.4 cm Tres Pedraza MD Work Phone: [facility] 10-07-2022 11:38-0400 Body temperature 98.01 [degF] Tres Pedraza MD Work Phone: [facility] 10-07-2022 11:38-0400 Body weight 56.47 kg Tres Pedraza MD Work Phone: [facility] 10-07-2022 11:38-0400 Diastolic blood pressure 84 mm[Hg] Tres Pedraza MD Work Phone: [facility] 10-07-2022 11:38-0400 Heart rate 76 /min Tres Pedraza MD Work Phone: [facility] 10-07-2022 11:38-0400 SaO2% (BldA) [Mass fraction] 100 % Tres Pedraza MD Work Phone: [facility] 10-07-2022 11:38-0400 Systolic blood pressure 134 mm[Hg] Tres Pedraza MD Work Phone: [facility] 03-05-2022 15:43-0400 Diastolic blood pressure 85 mm[Hg] Best Gutierrez DO Work Phone: [facility] 03-05-2022 15:43-0400 Heart rate 74 /min Best Gutierrez DO Work Phone: [facility] 03-05-2022 15:43-0400 Systolic blood pressure 134 mm[Hg] Best Gutierrez DO Work Phone: [facility] 02-04-2022 13:41-0400 Body height 152.4 cm Tres Pedraza MD Work Phone: [facility] 02-04-2022 13:41-0400 Body weight 57.61 kg Tres Pedraza MD Work Phone: [facility] 02-04-2022 13:41-0400 Diastolic blood pressure 71 mm[Hg] Tres Pedraza MD Work Phone: [facility] 02-04-2022 13:41-0400 Heart rate 82 /min Tres Pedraza MD Work Phone: [facility] 02-04-2022 13:41-0400 Systolic blood pressure 127 mm[Hg] Tres Pedraza MD Work Phone: [facility] Encounters Encounter Date Encounter Type Care Provider Facility Start: 01-15-2024 End: 01-15-2024 ambulatory [facility] Work Phone: Start: 01-15-2024 End: 01-15-2024 Patient encounter procedure [facility] Physician [facility] Work Phone: Start: 11-19-2023 End: 11-19-2023 Postop follow up visit related to original px Brandon Donis PA-C Work Phone: [facility] Comment on above: Aftercare following left knee joint replacement surgery Start: 11-19-2023 End: 11-19-2023 Subsequent hospital visit by physician Yosi Gonzalez X-Ray 1 [facility] Comment on above: Aftercare following left knee joint replacement surgery Start: 11-19-2023 End: 11-19-2023 ambulatory BRANDON DONIS [facility] Start: 10-07-2023 End: 10-08-2023 ambulatory THAO JUSTIN [facility] Start: 10-07-2023 End: 10-08-2023 Subsequent hospital visit by physician Thao Justin MD Work Phone: [facility] 2 Comment on above: S/P TKR (total knee replacement) using cement, left (Primary Dx); Unilateral primary osteoarthritis, left knee Start: 09-30-2023 End: 10-01-2023 ambulatory BRANDON DONIS [facility] Start: 09-30-2023 End: 10-01-2023 Encounter for other preprocedural examination BRANDON DONIS [facility] Start: 09-30-2023 End: 10-01-2023 ambulatory BRANDON Hough [facility] Start: 09-30-2023 End: 09-30-2023 ambulatory THAO JUSTIN [facility] Start: 09-30-2023 End: 09-30-2023 Subsequent hospital visit by physician Demetria X-Ray 1 [facility] Comment on above: Unilateral primary o steoarthritis, left knee Start: 09-23-2023 End: 09-23-2023 ambulatory Brennan Melissa Facility:[facility] Start: 09-23-2023 End: 09-23-2023 ambulatory DO Cr Ferrari Work Phone: [facility] Work Phone: Start: 09-23-2023 End: 09-23-2023 Patient encounter procedure DO Cr Vonda Work Phone: [facility] [place] Work Phone: Start: 09-22-2023 End: 09-22-2023 ambulatory BRENNAN MELISSA Not Available Start: 06-23-2023 End: 06-23-2023 ambulatory Cr Ferrari Other [facility] Other Start: 06-23-2023 Office outpatient vi sit 10 minutes Cr Ferrari [facility] Start: 06-17-2023 End: 06-17-2023 ambulatory Cr Ferrari Other [facility] Other Start: 06-17-2023 Telephone encounter Cr Ferrari [facility] Start: 06-11-2023 End: 06-11-2023 Patient encounter procedure Thao Justin MD Work Phone: [facility]la Comment on above: Primary osteoarthrit is of left knee (Primary Dx) Start: 06-11-2023 End: 06-11-2023 ambulatory THAO JUSTIN [facility] Start: 06-04-2023 End: 06-04-2023 ambulatory Cr Ferrari Other [facility] Other Start: 06-04-2023 Telephone encounter Cr Ferrari [facility] Start: 06-03-2023 End: 06-04-2023 ambulatory CR Gutierrez VONDA Not Available Start: 04-15-2023 End: 04-15-2023 ambulatory Cr Ferrari Other [facility] Other Start: 04-15-2023 Telephone encounter Cr Ferrari [facility] Start: 04-02-2023 End: 04-02-2023 ambulatory Cr Ferrari Other [facility] Other Start: 04-02-2023 Telephone encounter Cr Ferrari [facility] Start: 03-09-2023 AUDIT Cr hough Work Phone: [id number] Work Phone: Start: 02-27-2023 End: 02-27-2023 ambulatory Cr Ferrari Other [facility] Other Start: 02-27-2023 Office outpatient vi sit 15 minutes Cr Ferrari [facility] Start: 02-27-2023 Telephone encounter Cr Ferrari [facility] Start: 02-26-2023 Patient encounter procedure Cr Ferrari Work Phone: [id number] Work Phone: Start: 02-26-2023 ambulatory THAO Messer [id number] Start: 01-03-2023 End: 01-03-2023 ambulatory Cr Ferrari Other [facility] Other Start: 01-03-2023 Telephone encounter Cr Vonda [facility] Start: 12-25-2022 End: 12-25-2022 ambulatory Cr Ferrari Other [facility] Other Start: 12-25-2022 Telephone encounter Cr Ferrari [facility] Start: 12-19-2022 End: 12-19-2022 ambulatory Cr Ferrari Other [facility] Other Start: 12-19-2022 Office outpatient vi sit 15 minutes Cr Ferrari [facility] Start: 10-07-2022 End: 10-07-2022 ambulatory TRES PEDRAZA Facility:[facility] Start: 10-07-2022 End: 10-07-2022 Patient encounter procedure Tres Pedraza MD Work Phone: Rheumatology Comment on above: Polymyalgia rheumati ca (HCC) (Primary Dx); Carpal tunnel syndrome, bilateral; half-way current use of systemic steroids; Osteoporosis, unspecified osteoporosis type, unspecified pathological fracture presence Start: 04-01-2022 Telephone encounter Reuben Gutierrez DO Work Phone: Neurology Comment on above: Results Start: 03-26-2022 Orders Only Tres Pedraza MD Work Phone: Rheumatology Start: 03-25-2022 End: 03-25-2022 ambulatory BEST GUTIERREZ Facility:[facility] Start: 03-05-2022 End: 03-05-2022 ambulatory IMTIAZ TILLEY Facility:[facility] Start: 03-05-2022 End: 03-05-2022 Patient encounter procedure Best Gutierrez DO Work Phone: Neurology Comment on above: Numbness and tinglin g in both hands Start: 02-04-2022 End: 02-05-2022 ambulatory IMTIAZ TILLEY Facility:[facility] Start: 02-04-2022 End: 02-04-2022 ambulatory [facility] Facility:[facility] Start: 02-04-2022 End: 02-04-2022 Patient encounter procedure Tres Pedraza MD Work Phone: Rheumatology Comment on above: Polymyalgia rheumati ca (HCC) (Primary Dx); Numbness and tingling in both hands Start: 10-23-2021 End: 10-24-[address] CR FERRARI Facility:[facility] Start: 04-08-2021 End: 04-09-[address] CR FERRARI Facility:[facility] Start: 11-06-2020 End: 11-07-[address] CR FERRARI Facility:[facility] Procedures Date Procedure Procedure Detail Performing Clinician Start: 10-08-2023 Basic metabolic 2000 panel - Serum or Plasma THAO JUSTIN Start: 10-08-2023 CBC panel - Blood by Automated count THAO JUSTIN Start: 10-08-2023 Basic metabolic pane l calcium total Francisco Veloz MD Work Phone: Start: 10-07-2023 INITIATE EXTENDED RECOVERY THAO JUSTIN Start: 10-07-2023 DRESSING, REINFORCE EL JUSTIN Start: 10-07-2023 FOLLOW-UP EDUCATION ORDER THAO JUSTIN Start: 10-07-2023 IP CONSULT TO MEDICINE THAO JUSTIN Start: 10-07-2023 FULL CODE THAO JOE Start: 10-07-2023 PULSE OXIMETRY, CONTINUOUS THAO JUSTIN Start: 10-07-2023 PULSE OXIMETRY, CONTINUOUS Rivera Mejía MD Work Phone: Start: 10-07-2023 DISCHARGE PATIENT MARVIN JUSTIN Start: 10-07-2023 End: 10-07-2023 Arthrp kne condyle&platu medial&lat compartments Thao Justin MD Work Phone: Start: 10-06-2023 INITIATE OBSERVATION STATUS THAO JUSTIN Start: 09-30-2023 ECG 12-LEAD THAO JOE Start: 09-30-2023 Basic metabolic 2000 panel - Serum or Plasma THAO DEL TOROGERALD Start: 09-30-2023 CBC W Auto Different ial panel - Blood THAO CHRISTIANSONZGERALD Start: 09-30-2023 Hemoglobin A1c/Hemoglobin.total in Blood THAO DEL TOROGERALD Start: 09-30-2023 STAPHYLOCOCCUS AUREU S/MRSA COLONIZATION, CULTURE THAO DEL TOROGERALD Start: 09-30-2023 XR LOWER EXTREMITY L EG LENGTH EVALUATION THAO CHRISTIANSONZGERALD Start: 09-30-2023 XR KNEE LEFT [address] JACQUELINE DEL TOROJUSTIN Start: 09-30-2023 End: 09-30-2023 Bone length studies Brandon Donis PA-C Work Phone: Start: 09-23-2023 Urine culture DO Benjam in [facility] Work Phone: Start: 06-11-2023 LARGE JOINT INJECTION/ARTHROCENTESIS THAO OLLIE Start: 06-11-2023 XR KNEE LEFT 4+ VIEWS S IZA OLLIE Start: 06-11-2023 Arthrocentesis aspir &/inj major jt/bursa w/o us Thao Justin MD Work Phone: Plan of Treatment Date Care Activity Detail Author Start: 06-03-2025 Screening for osteoporosis Bone Density Scan [facility] Start: 11-18-2024 End: 11-18-2024 Patient encounter procedure 11/18/2024 8:20 AM EDT Office Visit Elias Acosta [address] [place] [address] Brandon Donis PA-C [address] [place] [address] [facility] Acosta Start: 06-03-2024 Screening for osteoporosis Bone Density Scan [facility] Start: 11-19-2023 End: 11-16-2024 XR Knee - left 3 Views [facility] Service Area Work Phone: Comment on above: Expected: 11/19/2023 , Expires: 11/16/2024 Once for 1 Occurrenc es starting 11/19/2023 until 11/19/2023 Start: 11-19-2023 End: 11-19-2023 Patient encounter procedure 11/19/2023 1:00 PM EDT Office Visit Elias Acosta [address] [place] [id number] Brandon Donis PA-C [address] [place] [address] [facility] Start: 10-07-2023 End: 10-07-2023 Admission to same day surgery center 10/07/2023 7:00 AM EDT - 10/07/2023 9:40 AM EDT [place] [facility] [address] [place] [address] [place] [address] [place] [address] Knee Replacement Total Cement Unilat ( DePuy Attune Knee, Pineapple Reading ) Overnight [24075 (CPT )] [facility] [place] Comment on above: Knee Replacement Tot al Cement Unilat ( DePuy Attune Knee, Pineapple Reading ) Overnight [77827 (CPT )] Start: 10-07-2023 End: 10-07-2023 Arthrp kne condyle&platu medial&lat compartments Knee Replacement Total Cement Unilat Unilateral primary osteoarthritis, left knee 10/07/2023 7:00 AM EDT [facility] [place] Start: 10-07-2023 Subsequent hospital visit by physician 10/07/2023 5:30 AM EDT Hospital Encounter [facility] [address] [place] [address] [place] [address] [place] [address] [facility] [place] Start: 09-23-2023 Bacteria identified in Urine by Culture [facility] Start: 02-20-2023 COVID-19 Vaccine ( season) COVID-19 Vaccine ( season) [facility] Start: 06-22-2022 ADVANCE DIRECTIVE DISCUSSION ADVANCE DIRECTIVE DISCUSSION [facility] Start: 06-22-2022 DEPRESSION ASSESSMENT DEPRESSION ASS ESSMENT [facility] Start: 02-20-2022 Influenza vaccination INFLUENZA (#1) [facility] Start: 12-04-2021 COVID-19 VACCINE (5 - Booster for Moderna series) COVID-19 VACCINE (5 - Booster for Moderna series) [facility] Start: 06-22-2021 ADVANCE DIRECTIVE DISCUSSION ADVANCE DIRECTIVE DISCUSSION [facility] Start: 06-22-2021 DEPRESSION ASSESSMENT DEPRESSION ASS ESSMENT [facility] Start: 06-21-2021 COVID-19 Vaccine (4 - Moderna series) COVID-19 Vaccine (4 - Moderna series) [facility] Start: 11-14-2020 Zoster Vaccines (2 of 3) Zoste r Vaccines (2 of 3) [facility] Start: 11-14-2020 Zoster Vaccines (3 of 3) Zoste r Vaccines (3 of 3) [facility] Start: 02-11-2020 Pneumococcal Vaccine : 65+ Years (2 - PPSV23 or PCV20) Pneumococcal Vaccine: 65+ Years (2 - PPSV23 or PCV20) [facility] Start: 05-03-2013 DTaP/Tdap/Td Vaccine s (1 - Tdap) DTaP/Tdap/Td Vaccines (1 - Tdap) [facility] Start: 2011 BONE DENSITY BONE DENSITY [facility] Start: 2011 PNEUMOCOCCAL: 65+ (1 - PCV) PNEUMOCOCCAL: 65+ (1 - PCV) [facility] Start: 2006 RSV patient s and/or patients aged 60+ years (1 - 1-dose 60+ series) RSV patients and/or patients aged 60+ years (1 - 1-dose 60+ series) [facility] Start: 1996 SHINGRIX VACCINE (1 of 2) SHINGRIX VACCINE (1 of 2) [facility] Start: 1991 COLOGUARD (FIT-DNA) COLOGUARD (FIT-D NA) [facility] Start: 1991 Colonoscopy COLONOSCOPY [facility] Start: 1991 COLORECTAL CANCER SCREENING COLORECTAL CANCER SCREENING [facility] Start: [address] COLONOGRAPHY [facility] Start: 1991 DIABETES SCREEN DIABETES SCREEN [facility] Start: 1991 FECAL OCCULT BLOOD FECAL OCCULT BLOO D [facility] Start: 1991 LIPID SCREEN LIPID SCREEN [facility] Start: 1991 SIGMOIDOSCOPY SIGMOIDOSCOPY [facility] Start: 1968 DTaP/Tdap/Td Vaccine s (1 - Tdap) DTaP/Tdap/Td Vaccines (1 - Tdap) [facility] Start: 1965 Urine microalbumin profile DTAP,TDAP,TD (1 - Tdap) [facility] Start: 1964 HEPATITIS C SCREENING HEPATITIS C [facility] Start: 1964 Hepatitis C screening Hepatitis C [facility] Start: 1958 Adult depression screening assessment DEPRESSION SCREENING [facility] Start: 1946 COVID-19 VACCINE (#1) COVID-19 VACCI NE (#1) [facility] Start: 1946 Lipid panel Lipid Panel [facility] Start: 1946 Medicare Annual Well ness Visit Medicare Annual Wellness Visit (AWV) [facility] Electrocardiogram, 12-lead PRN ACS symptoms Electrocardiogram, 12-lead PRN ACS symptoms ECG Routine As needed until discontinued starting 10/07/2023 [facility] Work Phone: Comment on above: As needed until disc ontinued starting 10/07/2023 End: 03-05-2023 EMG(NEURO/NI) EMG(NEURO/NI) EMG Routine Numbness and tingling in both hands 1 Occurrences starting 03/05/2022 until 03/05/2023 [facility] Work Phone: Comment on above: 1 Occurrences starti ng 03/05/2022 until 03/05/2023 End: 10-07-2023 Incentive spirometry Instruct Incentive spirometry Instruct Respiratory Care Routine Once for 1 Occurrences starting 10/07/2023 until 10/07/2023 [facility] Service Area Work Phone: Comment on above: Once for 1 Occurrenc es starting 10/07/2023 until 10/07/2023 [facility] Immunizations Immunization Date Immunization Notes Care Provider Radha rivas 04-08-2022 Fluad Quadrivalent 0 .5 ML Intramuscular Prefilled Syringe Cr Ferrari Work Phone: HL-Cpemywvoivwy-Ltgpi n 210 Work Phone: 04-08-2022 influenza virus vaccine, split virus (incl. purified surface antigen) Cr Ferrari Other [employer] Other 04-08-2022 influenza virus vaccine, unspecified formulation DO Cr Ferrari Work Phone: [facility] 10-09-2021 Moderna COVID-19 Vaccine 100 MCG/0.5ML Intramuscular Suspension Cr Ferrari Work Phone: RV-Ogygmwynmkra-Svyuf n 210 Work Phone: 04-26-2021 Moderna COVID-19 Vaccine 100 MCG/0.5ML Intramuscular Suspension Cr Ferrari Work Phone: QM-Jxwjylcxceps-Edmaz n 210 Work Phone: 03-20-2021 influenza virus vaccine, split virus (incl. purified surface antigen) Cr Ferrari Other [facility] [employer] Other 03-20-2021 influenza virus vaccine, unspecified formulation DO Cr Ferrari Work Phone: [facility] 03-19-2021 Fluzone High-Dose Quadrivalent 0.7 ML Intramuscular Suspension Prefilled Syringe Cr Ferrari Work Phone: JQ-Ktasznjedkzb-Jbxmh n 210 Work Phone: 09-19-2020 zoster vaccine recombinant Cr Ferrari Work Phone: RK-Njazntsxrucs-Bbixj n 210 Work Phone: 09-19-2020 zoster vaccine, live Benjcristino yumiko Vonda Other [facility] 08-21-2020 Moderna COVID-19 Vaccine 100 MCG/0.5ML Intramuscular Suspension Cr Ferrari Work Phone: [facility] 07-24-2020 Moderna COVID-19 Vaccine 100 MCG/0.5ML Intramuscular Suspension Cr E Vonda Work Phone: [facility] 04-30-2020 zoster vaccine recombinant Cr E Vonda Work Phone: HW-Omkasouhufrn-Esyqk n 210 Work Phone: 04-30-2020 zoster vaccine, live Elvia Ferrari Other [facility] 04-02-2020 pneumococcal polysaccharide vaccine, 23 valent Cr Ferrari Other [facility] 2019 influenza, high dose seasonal, preservative-free Cr Ferrari Work Phone: AL-Unxtsrpinxbk-Jwzxs n 210 Work Phone: 02-10-2019 pneumococcal conjuga te vaccine, 13 valent Cr Ferrari Work Phone: [facility] 06-02-2018 influenza virus vaccine, split virus (incl. purified surface antigen) Cr Ferrari Other [facility] [employer] Other 06-02-2018 influenza virus vaccine, unspecified formulation DO Cr Ferrari Work Phone: [facility] 05-31-2018 influenza, high dose seasonal, preservative-free Cr Ferrari Work Phone: ZI-Ckpyhosfmeqd-Agjzd n 210 Work Phone: 03-25-2017 influenza virus vaccine, split virus (incl. purified surface antigen) Cr Ferrari Other [facility] [facility] [employer] Other 03-25-2017 influenza virus vaccine, unspecified formulation DO Cr Ferrari Work Phone: [facility] 03-25-2017 influenza, high dose seasonal, preservative-free Cr E Ball Work Phone: JD-Cojyxafjqirg-Gokhq n 210 Work Phone: 07-15-2016 influenza virus vaccine, split virus (incl. purified surface antigen) Cr Ferrari Other [facility] [employer] Other 07-15-2016 influenza virus vaccine, unspecified formulation DO Cr Ferrari Work Phone: [facility] 07-15-2016 influenza, injectabl e, quadrivalent, preservative free Cr Ferrari Work Phone: GP-Rpdmfesfhtpa-Oczyy n 210 Work Phone: 07-07-2015 influenza, seasonal, injectable, preservative free Cr E Vonda Work Phone: LJ-Mscafwvqgium-Dsisp n 210 Work Phone: 07-03-2014 influenza, injectabl e, quadrivalent, contains preservative Cr E Vonda Work Phone: DP-Zpnpabqijlst-Oohzf n 210 Work Phone: 07-03-2014 zoster vaccine, live Benjami n E Ball Work Phone: EJ-Dnmjmjvpsdeg-Yzejr n 210 Work Phone: 05-02-2013 tetanus and diphther ia toxoids, adsorbed, preservative free, for adult use (5 Lf of tetanus toxoid and 2 Lf of diphtheria toxoid) Cr Ferrari Other [facility] Payers Date Payer Category Payer Self-pay [id number] 2021 Unknown [id number] 2011 Medicare [id number] 1959 Medicare [id number] 1959 Unknown [id number] 1946 Unknown [id number] [id number] 1946 Unknown [id number] 2.16.840.1.415158.3.579.2.593 1946 Unknown [id number] 2.16.840.1.540370.3.579.2.593 1946 Unknown [id number] 2.16.840.1.075306.3.579.2.1259 1946 Unknown [id number] 2.16.840.1.686671.3.579.2.1259 1946 Unknown [id number] 2.16.840.1.288638.3.579.2.1259 1946 Unknown [id number] 2.16.840.1.079615.3.579.2.356 1946 Unknown [id number] 2.16.840.1.584071.3.579.2.1244 1946 Unknown [id number] 2.16.840.1.123257.3.579.2.1244 1946 Unknown [id number] 2.16.840.1.392438.3.579.2.1244 1946 Unknown [id number] 2.16.840.1.503047.3.579.2.1244 1946 Unknown [id number] 2.16.840.1.039558.3.579.2.1244 1946 Unknown [id number] 2.16.840.1.384214.3.579.2.1242 1946 Unknown [id number] 2.16.840.1.563740.3.579.2.1242 1946 Unknown [id number] 2.16.840.1.837671.3.579.2.1242 1946 Unknown [id number] [id number]42 Unknown [employer] C o [id number] Unknown [id number] Social History Date Type Detail Facility Start: [facility] Start: 02-04-2022 End: 09-30-2023 Tobacco use and exposure Smokeless tobacco non-user [facility] Start: 1945 Sex Assigned At Not on file [facility] Start: 01-25-2022 End: 11-19-2023 Exposure to SARS-CoV-2 (event) Not sure [facility] Start: 03-05-2022 End: 10-07-2023 Alcohol intake Current drinker of alcohol (finding) [facility] Start: 03-05-2022 End: 10-07-2023 Alcohol intake [facility] Start: 09-30-2023 End: 10-07-2023 Sex Assigned At [facility] consumption unknown [facility] Work Phone: Start: 01-14-2021 End: 09-30-2023 Tobacco smoking status NHIS Ex-smoker (finding) [facility] Start: 1945 Sex Assigned At Female F [facility] History of tobacco use Current smoker [facility] Work Phone: History of tobacco use [facility] Start: 09-30-2023 Alcohol Comment social [facility] Work Phone: Start: 08-13-2023 Gender identity Identifies as female gender (finding) [facility] Work Phone: Start: 08-13-2023 Sexual orientation Heterosexual (elaine ding) [facility] Work Phone: How often do you nee d to have someone help you when you read instructions, pamphlets, or other written material from your doctor or pharmacy [SILS] Never [facility] Has the [employer], [place] [employer], [employer], or [employer] threatened to shut off services in your home in past 12Mo No [facility] Work Phone: Do you belong to any clubs or organizations such as methodist groups, unions, fraternal or athletic groups, or school groups? Yes [facility] Work Phone: Are you now , , , , never or living with a partner? [facility] Work Phone: How often to you hav e a drink containing alcohol? 2-4 times a month [facility] Work Phone: How many standard drinks containing alcohol do you have on a typical day? 1 or 2 [facility] Work Phone: How often do you hav e 6 or more drinks on 1 occasion? Never [facility] Work Phone: Do you feel stress - tense, restless, nervous, or anxious, or unable to sleep at night because your mind is troubled all the time - these days [OSQ] Not at all [facility] Work Phone: (I/We) worried wheth er (my/our) food would run out before (I/we) got money to buy more. Never true [facility] Work Phone: NEGATED: Highlighted row - - HX-Ckxkhrnvnovq-Fut man Work Phone: Medical Equipment Procedure Code Equipment Code Equipment Original Text Equipment Identifier Dates Cement, Bone, Endurance, Mv, 40 Gm Case [id number] Start: 02-24-2017 Comment on above: Description: Convert ed from [facility]. Please see archived information for full log information. Plate, Tibial Triath Mckenna Debbie Fxd Bplt #3 Case [id number] Start: 02-24-2017 Comment on above: Description: Convert ed from [facility]. Please see archived information for full log information. Fem Comp, Triath Debbie Ps # 3 Right Case [id number] Start: 02-24-2017 Comment on above: Description: Convert ed from [facility]. Please see archived information for full log information. Insert, Tibia Triath #3 Ps 9mm Case [id number] Start: 02-24-2017 Comment on above: Description: Convert ed from [facility] Acute. Please see archived information for full log information. Patella, Asymm Triath 32mm X 10mm Case [id number] Start: 02-24-2017 Comment on above: Description: Convert ed from [facility] Acute. Please see archived information for full log information. Dome, Patella, Medialized, 32mm - [id number] Start: 10-07-2023 Femoral, Attune Ps, Debbie, Nrw, Sz 4, Lt - [id number] Start: 10-07-2023 Bone Cement, Smart Set, High Viscosity, 40gm - [id number] Start: 10-07-2023 Insert, Attune P s Fb, Sz 4, 6mm - [id number] Start: 10-07-2023 Size 2 Attune Fixed Bearing Tibial Base, Cemented [id number] Start: 10-07-2023 Goals Date Patient Goal Desired Activity /State Personal health goal Functional Status Date Assessment Result Facility NEGATED: Highlighted row Functional performance Functional status health issues are not documented Disease YR-Xbdusilellkg-Qmk man Work Phone: Mental Status Date Assessment Result Facility NEGATED: Highlighted row Cognitive function [Interpretation] Cognitive status health issues are not documented Disease OI-Fvkrukxenjrr-Unh man Work Phone: Clinical Notes 05-30-2021 to 11-19-2023 Brandon Donis PA-C - 11/19/2023 1:00 PM Jane Liang RN - 10/08/2023 12:47 PM Jane Liang RN - 10/08/2023 12:47 PM Jane Liang RN - 10/08/2023 9:29 AM EDT Note Date & Type Note Facility 11-19-2023 History of Present illness Narrative Images from the original note were not included. ABRAN Nguyen, CHAD, ATC Adult Reconstruction and Joint Replacement Surgery Fax: No chief complaint on file. HPI: Maddie Ba is a pleasant 78 y.o. year-old female here for follow-up of their side: left total knee arthroplasty by Dr. Justin. The patient is approximately 6 week(s) postop.The patient has no mechanical symptoms. The patient has no swelling and pain. The patients wound has healed uneventfully. The patient has been doing HEP and/or outpatient PT. No complications postoperatively. Review of Systems Past Medical History: Diagnosis Date Carpal tunnel syndrome per EMG Hypertension Osteoarthritis Osteoporosis PMR (polymyalgia rheumatica) (Multi) In 01/2022. Since resolved after steroid taper. Patient Active Problem List Diagnosis Unilateral primary osteoarthritis, left knee Arthritis of left knee Medication Documentation Review Audit Reviewed by Lori Das LPN (Licensed Nurse) on 11/19/23 at 1246 Medication Order Taking? Sig Documenting Provider Last Dose Status amLODIPine (Norvasc) 5 mg tablet [id number] No Take 1 tablet (5 mg) by mouth once daily. Historical ProviderMD 10/06/2023 Active ascorbic acid (Vitamin C) 500 mg tablet [id number] No Take 1 tablet (500 mg) by mouth once daily. Historical ProviderMD Past Week Active cholecalciferol (Vitamin D-3) 25 MCG (1000 UT) capsule [id number] No Take 1 capsule (25 mcg) by mouth once daily. Fifi ProviderMD Past Week Active denosumab (Prolia) 60 mg/mL syringe [id number] No Inject 1 mL (60 mg total) under the skin every 6 months. 2023 Historical ProviderMD More than a month Active pantoprazole (ProtoNix) 40 mg EC tablet [id number] Take 1 tablet (40 mg) by mouth once daily. Do not crush, chew, or split. Francisco Veloz MD 11/06/23 7818 polyethylene glycol (Glycolax, Miralax) 17 gram/dose powder [id number] Mix 1 cap (17g) into 8 ounces of fluid and drink by mouth once daily. Francisco Veloz MD Active No Known Allergies Social History Socioeconomic History Marital status: Spouse name: Not on file Number of children: Not on file Years of education: Not on file Highest education level: Not on file Occupational History Not on file Tobacco Use Smoking status: Former Types: Cigarettes Smokeless tobacco: Never Vaping Use Vaping status: Never Used Substance and Sexual Activity Alcohol use: Yes Comment: social Drug use: Never Sexual activity: Not on file Other Topics Concern Not on file Social History Narrative Not on file Social Determinants of Health Financial Resource Strain: Low Risk (10/07/2023) Overall Financial Resource Strain (CARDIA) Difficulty of Paying Living Expenses: Not hard at all Food Insecurity: No Food Insecurity (10/07/2023) Hunger Vital Sign Worried About Running Out of Food in the Last Year: Never true Ran Out of Food in the Last Year: Never true Transportation Needs: No Transportation Needs (10/07/2023) PRAPARE - Transportation Lack of Transportation (Medical): No Lack of Transportation (Non-Medical): No Physical Activity: Not on file Stress: No Stress Concern Present (10/07/2023) [employer] - Occupational Stress Questionnaire Feeling of Stress : Not at all Social Connections: Socially Integrated (10/07/2023) Social Connection and Isolation Panel [NHANES] Frequency of Communication with Friends and Family: More than three times a week Frequency of Social Gatherings with Friends and Family: More than three times a week Attends Worship Services: 1 to 4 times per year Active Member of Clubs or Organizations: Yes Attends Club or Organization Meetings: 1 to 4 times per year Marital Status: Intimate Partner Violence: Not At Risk (10/07/2023) Humiliation, Afraid, Rape, and Kick questionnaire Fear of Current or Ex-Partner: No Emotionally Abused: No Physically Abused: No Sexually Abused: No Housing Stability: Low Risk (10/07/2023) Housing Stability Vital Sign Unable to Pay for Housing in the Last Year: No Number of Places Lived in the Last Year: 1 Unstable Housing in the Last Year: No Past Surgical History: Procedure Laterality Date HYSTERECTOMY w/ BSO TOTAL KNEE ARTHROPLASTY Bilateral 10/07/2023 Right 02/24/2017, Left 10/07/2023 Physical Exam side: left Knee There were no vitals filed for this visit. AxO x 3 in NAD. Assistive Device: no device. Coordination and balance intact. Normal bilateral upper and lower extremities. No erythema, ecchymosis, temperature changes. No popliteal lymphadenopathy, No overlying lesion Mood: euthymic Respirations non-labored The incision is midline healing well with no signs of surrounding infection, dehiscence or drainage. Neurovascular exam is at baseline. No instability varus or valgus stressing the knee at 0, 30 or 60 degrees. No instability in the AP plane at 90 degrees. Range of motion: 5 degrees extension, 110 degrees flexion 5/5 hip flexion/knee extension/DF/PF/EHL SILT in josé miguel/saph/ per/tib distribution Extremities warm and well perfused. No lower extremity calf tenderness, warmth or swelling. Lower extremity well perfused 2+ Femoral/DP/PT pulses bilaterally Imaging: No images are attached to the encounter. I personally reviewed multiple views of the knee today in clinic. Status post side: left Total Knee aArthroplasty. The implant is well fixed, well aligned. No evidence of harrison-implant fracture, lucency or dislocation. Impression/Plan: Maddie Ba is doing well post-operatively and happy with the results of the operation. S/P side: left Total Knee Arthroplasty I talked with patient at length about activity precautions and progression of activities. The patient understands their permanent precautions. At this time, you may gradually increase your activities and get back to a normal, low-impact lifestyle. Please avoid running, jumping, and heavy lifting. 3. Continue HEP or outpatient PT, per protocol. 4. Continue Post-operative instructions. 5. Discussed the importance of dental prophylactic dental antibiotics lifelong. Patient may request medication refill through MyChart, Pharmacy or surgeons office. All questions answered. Follow-up 1 year with x-rays at next visit. ABRAN Nguyen, CHAD, ATC Orthopedic Physician Assisant Adult Reconstruction and Total Joint Replacement General Orthopedics Department of Orthopaedic Surgery [place] [phone] [employer] messaging preferred documented in this encounter [facility] Work Phone: 10-08-2023 Nurse Note Reviewed all discharge instructions with patient and . Verbalized understanding. Heplock removed. Belongings packed and returned to patient. VSS. Pt discharged to home. [facility] 10-08-2023 Nurse Note Reviewed all discharge instructions with patient and . Verbalized understanding. Heplock removed. Belongings packed and returned to patient. VSS. Pt discharged to home. Pt was assisted to bathroom this morning. She did well moving with walker and required minimal assistance. Pain controlled. Breakfast ordered. Pt oriented to plan of care, Aox4. No confusion noted. at bedside. Plan for discharge to home today. Pt. Vital signs obtained. Pt. Ordered breakfast. Call light within reach. Chair alarm on. Patient seems to be forgetful, not mentioned by day shift nurse. She has mentioned several times about thinking it was the wrong time of day, or thinking it was the next day. Still oriented x4. Is fidgety and anxious. Leaning out of bed setting off bed alarm and picking at hemovac drain. Assumed care of patient at 1900. She is lying in bed sleeping. States her pain is low, a 2 on scale of 0-10. She does not have any concerns at this time. Safety measures in place including bed alarm. Call light and personal belongings within reach. Ambulating to bathroom. Voiding large amounts clear urine. Admission vital signs obtained. Pt. Oriented to the room. Scd's on. Bed alarm on. Call light within reach. Admitted to room 204 from surgery. Oriented to room. Call light given.Left leg dressing intact with no noted drainage.Hemovac drain in place draining small amount bloody liquid.Circulation adequate to left lower extremity. documented in this encounter [facility] Work Phone: 10-08-2023 History of Present illness Narrative Medication Education Medication education for Maddie Ba was provided to the patient and family for the following medication(s): Aspirin Docusate Meloxicam Oxycodone Tylenol Pantoprazole Miralax Tramadol Medication education provided by a Pharmacist: -Proper dose, indication, possible ADRs -How the medication works and benefits of taking it -Importance of compliance -Potential duration of therapy Identified potential barriers to education: None Method(s) of Education: Verbal Written materials provided and reviewed An opportunity to ask questions and receive answers was provided. Assessment of understanding the patient and family: 2= meets goals/outcomes Additional Notes (if applicable): Meds to beds given to patient and family. Janie Ludwig PharmD Images from the original note were not included. Progress Note: Maddie Ba is a 78 y.o. female on day 0 of admission presenting with Unilateral primary osteoarthritis, left knee. Subjective During interdisciplinary rounds patient expresses acceptable pain level. Denies any complaints. I have reviewed all vitals, labs, and notes. Patient is medically acceptable for discharge. Physical Exam General: No acute distress, alert & oriented Cardiac: RRR, NL S1 and S2, no murmurs, rubs or gallops Pulmonary: Lungs clear to auscultation bilaterally, no wheezes, rhales or rhonchi Abdomen: Soft, non-tender, non-distended Extremities: No clubbing , cyanosis or edema. Last Recorded Vitals Blood pressure 114/72, pulse 69, temperature 36.5 C (97.7 F), temperature source Temporal, resp. rate 18, height 1.524 m (5'), weight 54.4 kg (119 lb 14.9 oz), SpO2 99%. Scheduled medications Medication Dose Route Frequency amLODIPine 5 mg oral Daily aspirin 81 mg oral BID docusate sodium 100 mg oral BID pantoprazole 40 mg oral Daily before breakfast polyethylene glycol 17 g oral Daily scopolamine 1 patch transdermal q72h Relevant Results Results from last 7 days Lab Units 10/08/23 0440 WBC AUTO x10*3/uL 9.8 HEMOGLOBIN g/dL 10.5* HEMATOCRIT % 32.9* PLATELETS AUTO x10*3/uL 153 Results from last 7 days Lab Units 10/08/23 0440 SODIUM mmol/L 135* POTASSIUM mmol/L 4.0 CHLORIDE mmol/L 102 CO2 mmol/L 27 BUN mg/dL 20 CREATININE mg/dL 0.70 GLUCOSE mg/dL 107* CALCIUM mg/dL 8.6 Estimated Creatinine Clearance: 48.3 mL/min (by C-G formula based on SCr of 0.7 mg/dL). Assessment/Plan 1) S/P L TKR Ortho has placed discharge summary and discharge order 2) DVT prophylaxis Per Ortho management 81 mg ASA BID 3) hypertension Continue amlodipine with BP parameters starting tomorrow Disposition-patient is medically acceptable for discharge. I spent 25 minutes in the professional and overall care of this patient. Ayleen Goyal PA-C Interdisciplinary Rounds were completed at the bedside with Patient and Seam Stayer. Staff participating in rounds included: Clinical Nurse Orthopedic Coordinator Transitional Thermal Intelligence Analyst Hospitalist /MANUEL Physical Therapist. Topics discussed included: Today's Plan of Care Discharge Plan and Accommodations Physical Therapy Medications/Preferred Pharmacy and the Patient and Seam Stayer was given the opportunity to ask additional questions or bring up any concerns at that time. During the final discharge discussion and review of instructions, they will have another opportunity to review questions or concerns prior to leaving our care. Patient and Seam Stayer was given information on who to call post-discharge should new questions or concerns arise. The patient's plan includes: Discharge Date/Disposition: Home, Today with, Home Care Services Discharge Needs: No Equipment Needs Identified Medications/Pharmacy: [facility] service utilized for discharge prescriptions through [facility] 10/08/23 0922 Discharge Planning Living Arrangements Spouse/significant other Support Systems Spouse/significant other Assistance Needed HOME with 12/01 supervision and [facility] Home or Post Acute Services In home services Type of Home Care Services Home PT Patient expects to be discharged to: HOME with 12/01 supervision and [facility] company will call pt in 24-48 hrs to confirm SOC. Patient seen, chart reviewed. Pain is well-controlled. Vital signs are stable. No acute complaints. Linda Stubbs MD Physical Therapy Physical Therapy Evaluation & Treatment Patient Name: Maddie Ba Today's Date: 10/07/2023 Time Calculation Start Time: 1508 Stop Time: 1557 Time Calculation (min): 49 min Assessment/Plan PT Assessment PT Assessment Results: Decreased strength, Decreased range of motion, Decreased endurance, Impaired balance, Decreased mobility, Pain Rehab Prognosis: Excellent Evaluation/Treatment Tolerance: Patient tolerated treatment well Strengths: Ability to acquire knowledge, Attitude of self, Housing layout, Rehab experience, Physical health, Support and attitude of living partners End of Session Communication: Bedside nurse Assessment Comment: Pt. is 78 y/o female s/p L TKA. Pt. reports mild cognitive impairment, but not signficant during therapy session. Pt. demo instability when removing UE support secondary to dizziness and decreased L LE weightbearing. Pt. demo appriopriate ambulation and transfer techniques. Reviewed HEP. Pt. would benefit from continued physical therapy to progress rehab goals. End of Session Patient Position: Up in chair (Ice on L Knee. call light in reach. Pt. reports spouse can bring needs as needed. Spouse present in room.) IP OR SWING BED PT PLAN Inpatient or Swing Bed: Inpatient PT Plan Treatment/Interventions: Bed mobility, Transfer training, Stair training, Gait training, Balance training, Strengthening, Endurance training, Range of motion, Therapeutic exercise, Therapeutic activity, Home exercise program, Positioning PT Plan: Skilled PT PT Frequency: BID PT Discharge Recommendations: Low intensity level of continued care Equipment Recommended upon Discharge: Wheeled walker PT Recommended Transfer Status: Contact guard Subjective General Visit Information: General Reason for Referral: L TKA Referred By: Dr. Justin Past Medical History Relevant to Rehab: HTN, Migraine, Osteoporosis, Polymyalgia Rheumatical Family/Caregiver Present: Yes (Spouse) General Comment: Dressing dry and intact. Home Living: Home Living Type of Home: House Lives With: Spouse Home Adaptive Equipment: Walker rolling or standard Home Layout: One level Home Access: Stairs to enter without rails Entrance Stairs-Rails: None Entrance Stairs-Number of Steps: 1 Bathroom Shower/Tub: Walk-in shower Bathroom Equipment: Grab bars in shower, Grab bars around toilet, Shower chair with back Prior Level of Function: Prior Function Per Pt/Caregiver Report Level of [place]: Independent with ADLs and functional transfers Receives Help From: Family (Spouse) ADL Assistance: Independent Homemaking Assistance: Independent Ambulatory Assistance: Independent Vocational: Retired Precautions: Precautions LE Weight Bearing Status: Weight Bearing as Tolerated Medical Precautions: Fall precautions Post-Surgical Precautions: Left total knee precautions Objective Pain: Pain Assessment Pain Assessment: 0-10 Pain Score: 0 - No pain Pain Type: Surgical pain Pain Location: Knee Pain Orientation: Left Pain Interventions: Cold applied, Ambulation/increased activity, Repositioned Cognition: Cognition Overall Cognitive Status: Within Functional Limits Attention: Within Functional Limits Memory: Within Funtional Limits Safety/Judgement: Within Functional Limits General Assessments: Activity Tolerance Endurance: Endurance does not limit participation in activity Sensation Light Touch: Partial deficits in the LLE Proprioception: No apparent deficits Sensation Comment: Reports numbness over toes. Perception Inattention/Neglect: Appears intact Initiation: Appears intact Motor Planning: Appears intact Coordination Movements are Fluid and Coordinated: Yes Postural Control Postural Control: Within Functional Limits Static Sitting Balance Static Sitting-Balance Support: Feet supported, Bilateral upper extremity supported Static Sitting-Level of Assistance: Contact guard Dynamic Sitting Balance Dynamic Sitting-Balance Support: Feet supported, Bilateral upper extremity supported Dynamic Sitting-Comments: Demo loss of balance with removing UE support. Pt. attributes loss of balance to dizziness. After 5 minutes of sitting dizziness decreased Static Standing Balance Static Standing-Balance Support: Bilateral upper extremity supported Static Standing-Level of Assistance: Contact guard Dynamic Standing Balance Dynamic Standing-Balance Support: Bilateral upper extremity supported Dynamic Standing-Balance: Lateral lean Dynamic Standing-Comments: Pt. demo loss of balance when removing UE support. Pt. demo decreased weightbearing on L LE due to surgical pain which may be affecting balance. Functional Assessments: ADL ADL's Addressed: Yes ADL Comments: Ambulated to bathroom, pt. denied having to use toilet. Bed Mobility Bed Mobility: Yes Bed Mobility 1 Bed Mobility 1: Supine to sitting Level of Assistance 1: Close supervision Transfers Transfer: Yes Transfer 1 Transfer From 1: Bed to Transfer to 1: Stand, Chair with arms Technique 1: Sit to stand, Stand to sit Transfer Device 1: Walker Transfer Level of Assistance 1: Contact guard Ambulation/Gait Training Ambulation/Gait Training Performed: Yes Ambulation/Gait Training 1 Surface 1: Level tile Device 1: Rolling walker Gait Support Devices: Gait belt Assistance 1: Contact guard Quality of Gait 1: Decreased step length, Diminished heel strike (Decreased L LE weightbearing. Educated on gait sequence with Rolling walker) Comments/Distance (ft) 1: 50 ft x1 Stairs Stairs: No Extremity/Trunk Assessments: RUE RUE : Within Functional Limits LUE LUE: Within Functional Limits RLE RLE : Within Functional Limits LLE LLE : Exceptions to WFL AROM LLE (degrees) LLE AROM Comment: Limited due to surgical pain. Strength LLE LLE Overall Strength: Greater than or equal to 3/5 as evidenced by functional mobility (Limited due to surgical pain.) Treatments: Therapeutic Exercise Therapeutic Exercise Performed: Yes Therapeutic Exercise Activity 1: Ankles pumps 1x10, Glute squeezes 1x10, L Quad set 1x10, L heel slides 1x10, L SAQ 1x10, L SLR 1x10, L hip abduction 1x10. Outcome Measures: [facility] Basic Mobility Turning from your back to your side while in a flat bed without using bedrails: A little Moving from lying on your back to sitting on the side of a flat bed without using bedrails: A little Moving to and from bed to chair (including a wheelchair): A little Standing up from a chair using your arms (e.g. wheelchair or bedside chair): A little To walk in hospital room: A little Climbing 3-5 steps with railing: A little Basic Mobility - Total Score: 18 Encounter Problems Encounter Problems (Active) Balance LTG - Patient will demonstrate Intervention to enhance balance for safe completion of daily activities (Progressing) Start: 10/07/23 LTG - Patient will maintain balance to allow for safe mobility (Progressing) Start: 10/07/23 Compromised Skin Integrity LTG - Patient will maintain/improve skin integrity through proper skin care techniques (Progressing) Start: 10/07/23 Mobility LTG - Patient will be able to go up and down a curb/step with the appropriate device (Progressing) Start: 10/07/23 LTG - Patient will ambulate household distance MOD I with RW (Progressing) Start: 10/07/23 LTG - Patient will demonstrate safe mobility requirements with least restrictive device (Progressing) Start: 10/07/23 PT Transfers LTG - Patient will demonstrate safe transfer techniques MOD I with RW (Progressing) Start: 10/07/23 Pain Pain - Adult Safety LTG - Patient will demonstrate safety requirements appropriate to situation/environment (Progressing) Start: 10/07/23 Education Documentation Handouts, taught by Jelani Tsang PT at 10/07/2023 4:00 PM. Learner: Significant Other, Patient Readiness: Acceptance Method: Explanation, Demonstration, Handout Response: Verbalizes Understanding Precautions, taught by Jelani Tsang PT at 10/07/2023 4:00 PM. Learner: Significant Other, Patient Readiness: Acceptance Method: Explanation, Demonstration, Handout Response: Verbalizes Understanding Home Exercise Program, taught by Jelani Tsang PT at 10/07/2023 4:00 PM. Learner: Significant Other, Patient Readiness: Acceptance Method: Explanation, Demonstration, Handout Response: Verbalizes Understanding Mobility Training, taught by Jelani Tsang PT at 10/07/2023 4:00 PM. Learner: Significant Other, Patient Readiness: Acceptance Method: Explanation, Demonstration, Handout Response: Verbalizes Understanding Education Comments No comments found. Jelani Tsang PT, DPT TCC met with patient at the bedside to discuss discharge plan. 78 yr old female admitted observation following left knee replacement with Dr. Justin. Plan is home tomorrow with [facility]. SOC confirmed to start within 24-48 hrs. [facility] will contact patient to arrange time. Confirmed post op on november 19, 2023 at 1pm-Elias 10/07/23 1246 Discharge Planning Living Arrangements Spouse/significant other Support Systems Spouse/significant other Assistance Needed mobility, tranfers Type of Residence Private residence Number of Stairs to Enter Residence 1 Number of Stairs Within Residence 0 Do you have animals or pets at home? No Who is requesting discharge planning? Provider Home or Post Acute Services In home services Type of Home Care Services Home PT Patient expects to be discharged to: Home Does the patient need discharge transport arranged? No Financial Resource Strain How hard is it for you to pay for the very basics like food, housing, medical care, and heating? Not hard Housing Stability In the last 12 months, was there a time when you were not able to pay the mortgage or rent on time? N In the last 12 months, how many places have you lived? 1 In the last 12 months, was there a time when you did not have a steady place to sleep or slept in a detention (including now)? N Transportation Needs In the past 12 months, has lack of transportation kept you from medical appointments or from getting medications? no In the past 12 months, has lack of transportation kept you from meetings, work, or from getting things needed for daily living? No Patient Choice Provider Choice list and CMS website (https://medicare.gov/care-sacha re#search) for post-acute Quality and Resource Measure Data were provided and reviewed with: Patient Patient / Family choosing to utilize agency / facility established prior to hospitalization Yes [facility]- 10/07/23 1245 Food Insecurity Within the past 12 months, you worried that your food would run out before you got the money to buy more. Never true Within the past 12 months, the food you bought just didn't last and you didn't have money to get more. Never true Stress Do you feel stress - tense, restless, nervous, or anxious, or unable to sleep at night because your mind is troubled all the time - these days? Not at all Social Connections In a typical week, how many times do you talk on the phone with family, friends, or neighbors? More than 3 How often do you get together with friends or relatives? More than 3 How often do you attend methodist or pentecostalism services? 1 to 4 Do you belong to any clubs or organizations such as methodist groups, unions, fraternal or athletic groups, or school groups? Yes (Oriental Orthodox) How often do you attend meetings of the clubs or organizations you belong to? 1 to 4 Are you , , , , never , or living with a partner? Intimate Partner Violence Within the last year, have you been afraid of your partner or ex-partner? No Within the last year, have you been humiliated or emotionally abused in other ways by your partner or ex-partner? No Within the last year, have you been kicked, hit, slapped, or otherwise physically hurt by your partner or ex-partner? No Within the last year, have you been raped or forced to have any kind of sexual activity by your partner or ex-partner? No Alcohol Use Q1: How often do you have a drink containing alcohol? 2-4 pr month Q2: How many drinks containing alcohol do you have on a typical day when you are drinking? 1 or 2 Q3: How often do you have six or more drinks on one occasion? Never Utilities In the past 12 months has the [employer], [employer], oil, or water [employer] threatened to shut off services in your home? No Health Literacy How often do you need to have someone help you when you read instructions, pamphlets, or other written material from your doctor or pharmacy? Never documented in this encounter [facility] Work Phone: 10-08-2023 Nurse Note Pt was assisted to bathroom this morning. She did well moving with walker and required minimal assistance. Pain controlled. Breakfast ordered. Pt oriented to plan of care, Aox4. No confusion noted. at bedside. Plan for discharge to home today. [facility] Work Phone: 10-08-2023 Plan of care note The patient's goals for the shift include pain management. The clinical goals for the shift include pain management O [facility] Work Phone: 10-08-2023 Miscellaneous Notes The patient's goals for the shift include pain management. The clinical goals for the shift include pain management O Problem: Pain - Adult Goal: Verbalizes/displays adequate comfort level or baseline comfort level Outcome: Progressing Problem: Safety - Adult Goal: Free from fall injury Outcome: Progressing Problem: Discharge Planning Goal: Discharge to home or other facility with appropriate resources Outcome: Progressing Problem: Chronic Conditions and Co-morbidities Goal: Patient's chronic conditions and co-morbidity symptoms are monitored and maintained or improved Outcome: Progressing Problem: Pain Goal: Takes deep breaths with improved pain control throughout the shift Outcome: Progressing Goal: Turns in bed with improved pain control throughout the shift Outcome: Progressing Goal: Walks with improved pain control throughout the shift Outcome: Progressing Goal: Performs ADL's with improved pain control throughout shift Outcome: Progressing Goal: Participates in PT with improved pain control throughout the shift Outcome: Progressing Goal: Free from opioid side effects throughout the shift Outcome: Progressing Goal: Free from acute confusion related to pain meds throughout the shift Outcome: Progressing Problem: Pain Goal: My pain/discomfort is manageable Outcome: Progressing Problem: Safety Goal: Patient will be injury free during hospitalization Outcome: Progressing Goal: I will remain free of falls Outcome: Progressing Problem: Daily Care Goal: Daily care needs are met Outcome: Progressing Problem: Psychosocial Needs Goal: Demonstrates ability to cope with hospitalization/illness Outcome: Progressing Goal: Collaborate with me, my family, and caregiver to identify my specific goals Outcome: Progressing Problem: Discharge Barriers Goal: My discharge needs are met Outcome: Progressing Problem: Fall/Injury Goal: Not fall by end of shift Outcome: Progressing Goal: Be free from injury by end of the shift Outcome: Progressing Goal: Verbalize understanding of personal risk factors for fall in the hospital Outcome: Progressing Goal: Verbalize understanding of risk factor reduction measures to prevent injury from fall in the home Outcome: Progressing Goal: Use assistive devices by end of the shift Outcome: Progressing Goal: Pace activities to prevent fatigue by end of the shift Outcome: Progressing Problem: Pain Goal: LTG - Patient will manage pain with the appropriate technique/Intervention Outcome: Progressing Problem: Knee Replacement Intial Post Op Goal: Activity/Mobility Safety Outcome: Progressing Goal: Treatment Immediate Post Op Outcome: Progressing Goal: Treatment Outcome: Progressing Problem: Knee Replacement Post Op Day 1 Goal: Activity/Mobility Safety Outcome: Progressing Goal: Treatment Outcome: Progressing Problem: Resident has compromised skin integrity Goal: I will maintain or improve skin integrity Outcome: Progressing Problem: Balance Goal: LTG - Patient will demonstrate Intervention to enhance balance for safe completion of daily activities Outcome: Progressing Goal: LTG - Patient will maintain balance to allow for safe mobility Outcome: Progressing Problem: Mobility Goal: LTG - Patient will be able to go up and down a curb/step with the appropriate device Outcome: Progressing Goal: LTG - Patient will ambulate household distance MOD I with RW Outcome: Progressing Goal: LTG - Patient will demonstrate safe mobility requirements with least restrictive device Outcome: Progressing Problem: Safety Goal: LTG - Patient will demonstrate safety requirements appropriate to situation/environment Outcome: Progressing Problem: PT Transfers Goal: LTG - Patient will demonstrate safe transfer techniques MOD I with RW Outcome: Progressing Problem: Pain Goal: LTG - Patient will manage pain with the appropriate technique/Intervention Outcome: Progressing Problem: Compromised Skin Integrity Goal: LTG - Patient will maintain/improve skin integrity through proper skin care techniques Outcome: Progressing The patient's goals for the shift include pain management. The clinical goals for the shift include pain management. Pt tolerated Sprite well. Pt ready for transport to med-surg unit. Report given and they are ready for her in room #204. Pt rests with eyes closed. Voices no c/o. Pt HOB raised to drink some Sprite. Nazario hugger in place for comfort. Mariano bandage with hemovac noted D&I. Circulation to operative leg with brisk refill and pedal pulse 2-3+. Bilat NAVEEN hose in place. Monitor NSR. Pt room air. Knee Replacement Total Cement Unilat (L) Operative Note Date: 10/07/2023 OR Location: [facility] OR Name: Maddie Ba, : 1945, Age: 78 y.o., , Sex: female Diagnosis Pre-op Diagnosis * Unilateral primary osteoarthritis, left knee [M17.12] Post-op Diagnosis * Unilateral primary osteoarthritis, left knee [M17.12] Procedures Knee Replacement Total Cement Unilat 54573 - MT ARTHRP KNE CONDYLE&PLATU MEDIAL&LAT COMPARTMENTS Surgeons * Thao Justin - Primary Resident/Fellow/Other Shovel Operator: Surgeons and Role: * No surgeons found with a matching role * Procedure Summary Anesthesia: Consult ASA: II Anesthesia Staff: Anesthesiologist: Rivera Mejía MD C-AA: FUNMI Holder Estimated Blood Loss: 25mL Intra-op Medications: Administrations occurring from 0830 to 1030 on 10/07/23: Medication Name Total Dose ceFAZolin in dextrose (iso-os) (Ancef) IVPB 2 g 2 g Anesthesia Record Intraprocedure I/O Totals Intake Tranexamic Acid 0.00 mL The total shown is the total volume documented since Anesthesia Start was filed. Total Intake 0 mL Output Est. Blood Loss 25 mL Total Output 25 mL Net Net Volume -25 mL Specimen: No specimens collected Staff: Stave Cutter: Kiley Dc RN Scrub Person: Eugenie Mota; Anne Cintron Drains and/or Catheters: * None in log * Tourniquet Times: * Missing tourniquet times found for documented tourniquets in lo * Implants: Implants Type Name Action Serial No. Joint Knee DOME, PATELLA, MEDIALIZED, 32MM - [id number] Implanted Joint Knee FEMORAL, ATTUNE PS, DEBBIE, NRW, SZ 4, LT - [id number] Implanted Joint Knee BONE CEMENT, SMART SET, HIGH VISCOSITY, 40GM - [id number] Implanted SIZE 2 ATTUNE FIXED BEARING TIBIAL BASE, CEMENTED Implanted Joint Knee INSERT, ATTUNE PS FB, SZ 4, 6MM - [id number] Implanted Findings: severe OA Indications: Maddie Ba is an 78 y.o. female who is having surgery for Unilateral primary osteoarthritis, left knee [M17.12]. The patient was seen in the preoperative area. The risks, benefits, complications, treatment options, non-operative alternatives, expected recovery and outcomes were discussed with the patient. The possibilities of reaction to medication, pulmonary aspiration, injury to surrounding structures, bleeding, recurrent infection, the need for additional procedures, failure to diagnose a condition, and creating a complication requiring transfusion or operation were discussed with the patient. The patient concurred with the proposed plan, giving informed consent. The site of surgery was properly noted/marked if necessary per policy. The patient has been actively warmed in preoperative area. Preoperative antibiotics have been ordered and given within 1 hours of incision. Venous thrombosis prophylaxis bilateral sequential compression. Procedure Details: L TKA Complications: None; patient tolerated the procedure well. Disposition: PACU - hemodynamically stable. Condition: stable PREOPERATIVE DIAGNOSIS: left knee osteoarthritis POSTOPERATIVE DIAGNOSIS: left knee osteoarthritis OPERATION/PROCEDURE: left total knee arthroplasty SURGEON: Thao Justin MD FOOD SAFETY DIRECTOR(S): Roselia ANESTHESIA: spinal LOCATION: [facility] ESTIMATED BLOOD LOSS AND INTRAVENOUS FLUIDS: Please see Anesthesia record. COMPONENTS USED: DePuy Attune knee system 1. 4N femur 2. 2 tibia 3. 32 patella 4. 6mm insert BRIEF CLINICAL NOTE: The patient is a 78 yo female with advanced osteoarthritis of their left knee. They failed conservative treatment and wished to proceed with total knee arthroplasty which is indicated at this time. We discussed the risks, benefits, and alternatives of surgery including but not limited to infection, damage to vessel or nerve, bleeding, soft tissue pain, DVT, PE, problems with anesthesia, lack of range of motion, continued soft tissue pain, need for further surgery, etc. Consent was obtained. They were taken to the operating room in order to undergo the procedure. PRE-OP ROM: 5-110 OPERATIVE REPORT: The patient was transferred to the operating room table. Time-out was performed confirming patient name, medical record number, surgical site, and adequate and appropriate imaging. The patient received appropriate IV antibiotics as well as tranexamic acid. Once we were prepped and draped,midline skin incision was performed. Hemostasis was obtained using electrocautery. Underlying extensor mechanism was easily identified and entered using a standard medial parapatellar arthrotomy performedsharply. The infrapatellar and suprapatellar fat pads were debrided.Initial medial release was performed. The patella was subluxed laterally. Distal femur was entered using a step drill. Distal femoral cut was performed, and the femur was sized and prepared. The tibia was subluxed forward using a double-prong PCL retractor. The proximal tibia was cut in neutral mechanical axis using an extramedullary tibial guide. We then used the lamina linux solaris administrator to clear out the posterior osteophytes and clear the meniscal remnants. We then sized the tibia and prepared it. We cut the patella freehand using a caliper to restore the [place] patellar height. We then trialed with multiple polyethylene inserts. Once I was happy with the position of components and stability of the knee, all trial components were removed. The cut bony surfaces were thoroughly irrigated and dried. We then cemented into place the real components. The knee was held in extension until all cement was hardened. All extraneous cement was removed. We then closed the extensor mechanism over a drain using interrupted #2 Ethibond as well as interrupted 0 Vicryl. The subcu was closed with interrupted 2-0 Vicryl. The skin was closed with running 3-0 Biosyn followed by Dermabond and Steri-Strips. Dry sterile dressing was placed. The patient was transferred back to the hospital bed without incident or complication. She will be weightbearing as tolerated. They will be on ASA and SCDs for DVT prophylaxis. Additional Details: WBAT, ASA Attending Attestation: I was present and scrubbed for the guevara portions of the procedure. Bilateral knee high TEDS applied per order. documented in this encounter [facility] Work Phone: 10-08-2023 Nurse Note Pt. Vital signs obtained. Pt. Ordered breakfast. Call light within reach. Chair alarm on. [facility] 10-07-2023 Nurse Note Patient seems to be forgetful, not mentioned by day shift nurse. She has mentioned several times about thinking it was the wrong time of day, or thinking it was the next day. Still oriented x4. Is fidgety and anxious. Leaning out of bed setting off bed alarm and picking at hemovac drain. [facility] 10-07-2023 Plan of care note Problem: Pain - Adult Goal: Verbalizes/displays adequate comfort level or baseline comfort level Outcome: Progressing Problem: Safety - Adult Goal: Free from fall injury Outcome: Progressing Problem: Discharge Planning Goal: Discharge to home or other facility with appropriate resources Outcome: Progressing Problem: Chronic Conditions and Co-morbidities Goal: Patient's chronic conditions and co-morbidity symptoms are monitored and maintained or improved Outcome: Progressing Problem: Pain Goal: Takes deep breaths with improved pain control throughout the shift Outcome: Progressing Goal: Turns in bed with improved pain control throughout the shift Outcome: Progressing Goal: Walks with improved pain control throughout the shift Outcome: Progressing Goal: Performs ADL's with improved pain control throughout shift Outcome: Progressing Goal: Participates in PT with improved pain control throughout the shift Outcome: Progressing Goal: Free from opioid side effects throughout the shift Outcome: Progressing Goal: Free from acute confusion related to pain meds throughout the shift Outcome: Progressing Problem: Pain Goal: My pain/discomfort is manageable Outcome: Progressing Problem: Safety Goal: Patient will be injury free during hospitalization Outcome: Progressing Goal: I will remain free of falls Outcome: Progressing Problem: Daily Care Goal: Daily care needs are met Outcome: Progressing Problem: Psychosocial Needs Goal: Demonstrates ability to cope with hospitalization/illness Outcome: Progressing Goal: Collaborate with me, my family, and caregiver to identify my specific goals Outcome: Progressing Problem: Discharge Barriers Goal: My discharge needs are met Outcome: Progressing Problem: Fall/Injury Goal: Not fall by end of shift Outcome: Progressing Goal: Be free from injury by end of the shift Outcome: Progressing Goal: Verbalize understanding of personal risk factors for fall in the hospital Outcome: Progressing Goal: Verbalize understanding of risk factor reduction measures to prevent injury from fall in the home Outcome: Progressing Goal: Use assistive devices by end of the shift Outcome: Progressing Goal: Pace activities to prevent fatigue by end of the shift Outcome: Progressing Problem: Pain Goal: LTG - Patient will manage pain with the appropriate technique/Intervention Outcome: Progressing Problem: Knee Replacement Intial Post Op Goal: Activity/Mobility Safety Outcome: Progressing Goal: Treatment Immediate Post Op Outcome: Progressing Goal: Treatment Outcome: Progressing Problem: Knee Replacement Post Op Day 1 Goal: Activity/Mobility Safety Outcome: Progressing Goal: Treatment Outcome: Progressing Problem: Resident has compromised skin integrity Goal: I will maintain or improve skin integrity Outcome: Progressing [facility] Work Phone: 10-07-2023 Nurse Note Assumed care of patient at 1900. She is lying in bed sleeping. States her pain is low, a 2 on scale of 0-10. She does not have any concerns at this time. Safety measures in place including bed alarm. Call light and personal belongings within reach. [facility] Work Phone: 10-07-2023 Nurse Note Ambulating to bathroom. Voiding large amounts clear urine. [facility] Work Phone: 10-07-2023 Plan of care note Problem: Balance Goal: LTG - Patient will demonstrate Intervention to enhance balance for safe completion of daily activities Outcome: Progressing Goal: LTG - Patient will maintain balance to allow for safe mobility Outcome: Progressing Problem: Mobility Goal: LTG - Patient will be able to go up and down a curb/step with the appropriate device Outcome: Progressing Goal: LTG - Patient will ambulate household distance MOD I with RW Outcome: Progressing Goal: LTG - Patient will demonstrate safe mobility requirements with least restrictive device Outcome: Progressing Problem: Safety Goal: LTG - Patient will demonstrate safety requirements appropriate to situation/environment Outcome: Progressing Problem: PT Transfers Goal: LTG - Patient will demonstrate safe transfer techniques MOD I with RW Outcome: Progressing Problem: Pain Goal: LTG - Patient will manage pain with the appropriate technique/Intervention Outcome: Progressing Problem: Compromised Skin Integrity Goal: LTG - Patient will maintain/improve skin integrity through proper skin care techniques Outcome: Progressing [facility] Work Phone: 10-07-2023 Plan of care note The patient's goals for the shift include pain management. The clinical goals for the shift include pain management. [facility] Work Phone: 10-07-2023 Consult note Associated Order (s): Inpatient consult to Medicine Images from the original note were not included. Inpatient consult to Medicine Consult performed by: Ayleen Goyal PA-C Consult ordered by: Thao Justin MD Reason for consult: HTN History and Physical Maddie Ba is a 78 y.o. female on day 0 of admission presenting with Unilateral primary osteoarthritis, left knee. Room: [address] [place] [address] 78 year old female with pmhx HTN is s/p Left TKR. She had her R knee replaced 7 years ago. Currently hemodynamically stable. Has a episode of urinary incontinence. Nurse aide changed garments. Likely due to intact spinal. PMHx: Past Medical History: Diagnosis Date Carpal tunnel syndrome per EMG Hypertension Osteoarthritis Osteoporosis PMR (polymyalgia rheumatica) (Multi) In 01/2022. Since resolved after steroid taper. Past Surgical Hx: Past Surgical History: No date: HYSTERECTOMY Comment: w/ BSO 10/07/2023: TOTAL KNEE ARTHROPLASTY; Bilateral Comment: Right 02/24/2017, Left 10/07/2023 Social history: reports that she has quit smoking. Her smoking use included cigarettes. She has never used smokeless tobacco. She reports current alcohol use. She reports that she does not use drugs. Family history: No family history on file. No Known Allergies Home Medication: Medication Details amLODIPine (Norvasc) 5 mg tablet Take 1 tablet (5 mg) by mouth once daily. denosumab (Prolia) 60 mg/mL syringe Last Recorded Vitals Blood pressure 120/79, pulse 80, temperature 36.3 C (97.3 F), temperature source Temporal, resp. rate 18, height 1.524 m (5'), weight 54.4 kg (119 lb 14.9 oz), SpO2 97%. Physical Exam General: Patient in no acute distress, lying in bed HEENT: EOMI, moist mucous membranes, anicteric Neck: No JVD, no cervical lymphadenopathy Heart: RRR, no murmurs, rubs, or gallops Lungs: Clear to auscultation bilaterally, no wheezing, rhonchi, or rales Abdomen: Soft, nontender, nondistended, no organomegaly Extremities: No peripheral edema, able to pump b/l ankles, + HV drain w/ blood in the reservoir Skin: No rash or cyanosis Neurological: AOx3, non focal Psychiatric: Cooperative and pleasant Recent Results: Latest Reference Range & Units 09/30/23 11:32 GLUCOSE 74 - 99 mg/dL 93 SODIUM 136 - 145 mmol/L 141 POTASSIUM 3.5 - 5.3 mmol/L 4.3 CHLORIDE 98 - 107 mmol/L 103 Bicarbonate 21 - 32 mmol/L 29 Anion Gap 10 - 20 mmol/L 13 Blood Urea Nitrogen 6 - 23 mg/dL 16 Creatinine 0.50 - 1.05 mg/dL 0.62 EGFR >60 mL/min/1.73m*2 >90 Calcium 8.6 - 10.3 mg/dL 9.7 Hemoglobin A1C See below % 5.5 Estimated Average Glucose Not Established mg/dL 111 LEUKOCYTES (10*3/UL) IN BLOOD BY AUTOMATED COUNT, YEMENI 4.4 - 11.3 x10*3/uL 7.8 nRBC COMMENT ONLY ERYTHROCYTES (10*6/UL) IN BLOOD BY AUTOMATED COUNT, YEMENI 4.00 - 5.20 x10*6/uL 4.28 HEMOGLOBIN 12.0 - 16.0 g/dL 13.0 HEMATOCRIT 36.0 - 46.0 % 41.0 MCV 80 - 100 fL 96 MCH 26.0 - 34.0 pg 30.4 MCHC 32.0 - 36.0 g/dL 31.7 (L) RED CELL DISTRIBUTION WIDTH 11.5 - 14.5 % 12.6 PLATELETS (10*3/UL) IN BLOOD AUTOMATED COUNT, YEMENI 150 - 450 x10*3/uL 211 (L): Data is abnormally low Assessment/Plan 1) S/P L TKR Ortho management PT eval/treat Incentive spirometry BM management Supportive Care Antibiotic prophylaxis per ortho DVT prophylaxis per ortho 2) DVT prophylaxis Per Ortho management 81 mg ASA BID SCDs Ambulate as tolerated 3) hypertension Continue amlodipine with BP parameters starting tomorrow I spent 35 minutes in the professional and overall care of this patient. Ayleen Goyal PA-C [facility] Work Phone: 10-07-2023 Consult note Associated Order (s): Inpatient consult to Medicine Images from the original note were not included. Inpatient consult to Medicine Consult performed by: Ayleen Goyal PA-C Consult ordered by: Thao Justin MD Reason for consult: HTN History and Physical Maddie Ba is a 78 y.o. female on day 0 of admission presenting with Unilateral primary osteoarthritis, left knee. Room: 204 Subjective 78 year old female with pmhx HTN is s/p Left TKR. She had her R knee replaced 7 years ago. Currently hemodynamically stable. Has a episode of urinary incontinence. Nurse aide changed garments. Likely due to intact spinal. PMHx: Past Medical History: Diagnosis Date Carpal tunnel syndrome per EMG Hypertension Osteoarthritis Osteoporosis PMR (polymyalgia rheumatica) (Multi) In 01/2022. Since resolved after steroid taper. Past Surgical Hx: Past Surgical History: No date: HYSTERECTOMY Comment: w/ BSO 10/07/2023: TOTAL KNEE ARTHROPLASTY; Bilateral Comment: Right 02/24/2017, Left 10/07/2023 Social history: reports that she has quit smoking. Her smoking use included cigarettes. She has never used smokeless tobacco. She reports current alcohol use. She reports that she does not use drugs. Family history: No family history on file. No Known Allergies Home Medication: Medication Details amLODIPine (Norvasc) 5 mg tablet Take 1 tablet (5 mg) by mouth once daily. denosumab (Prolia) 60 mg/mL syringe Last Recorded Vitals Blood pressure 120/79, pulse 80, temperature 36.3 C (97.3 F), temperature source Temporal, resp. rate 18, height 1.524 m (5'), weight 54.4 kg (119 lb 14.9 oz), SpO2 97%. Physical Exam General: Patient in no acute distress, lying in bed HEENT: EOMI, moist mucous membranes, anicteric Neck: No JVD, no cervical lymphadenopathy Heart: RRR, no murmurs, rubs, or gallops Lungs: Clear to auscultation bilaterally, no wheezing, rhonchi, or rales Abdomen: Soft, nontender, nondistended, no organomegaly Extremities: No peripheral edema, able to pump b/l ankles, + HV drain w/ blood in the reservoir Skin: No rash or cyanosis Neurological: AOx3, non focal Psychiatric: Cooperative and pleasant Recent Results: Latest Reference Range & Units 09/30/23 11:32 GLUCOSE 74 - 99 mg/dL 93 SODIUM 136 - 145 mmol/L 141 POTASSIUM 3.5 - 5.3 mmol/L 4.3 CHLORIDE 98 - 107 mmol/L 103 Bicarbonate 21 - 32 mmol/L 29 Anion Gap 10 - 20 mmol/L 13 Blood Urea Nitrogen 6 - 23 mg/dL 16 Creatinine 0.50 - 1.05 mg/dL 0.62 EGFR >60 mL/min/1.73m*2 >90 Calcium 8.6 - 10.3 mg/dL 9.7 Hemoglobin A1C See below % 5.5 Estimated Average Glucose Not Established mg/dL 111 LEUKOCYTES (10*3/UL) IN BLOOD BY AUTOMATED COUNT, YEMENI 4.4 - 11.3 x10*3/uL 7.8 nRBC COMMENT ONLY ERYTHROCYTES (10*6/UL) IN BLOOD BY AUTOMATED COUNT, YEMENI 4.00 - 5.20 x10*6/uL 4.28 HEMOGLOBIN 12.0 - 16.0 g/dL 13.0 HEMATOCRIT 36.0 - 46.0 % 41.0 MCV 80 - 100 fL 96 MCH 26.0 - 34.0 pg 30.4 MCHC 32.0 - 36.0 g/dL 31.7 (L) RED CELL DISTRIBUTION WIDTH 11.5 - 14.5 % 12.6 PLATELETS (10*3/UL) IN BLOOD AUTOMATED COUNT, YEMENI 150 - 450 x10*3/uL 211 (L): Data is abnormally low Assessment/Plan 1) S/P L TKR Ortho management PT eval/treat Incentive spirometry BM management Supportive Care Antibiotic prophylaxis per ortho DVT prophylaxis per ortho 2) DVT prophylaxis Per Ortho management 81 mg ASA BID SCDs Ambulate as tolerated 3) hypertension Continue amlodipine with BP parameters starting tomorrow I spent 35 minutes in the professional and overall care of this patient. Ayleen Goyal PA-C documented in this encounter [facility] Work Phone: 10-07-2023 Nurse Note Admission vital signs obtained. Pt. Oriented to the room. Scd's on. Bed alarm on. Call light within reach. [facility] Work Phone: 10-07-2023 Note Formatting of this n ote might be different from the original. Pt tolerated Sprite well. Pt ready for transport to med-surg unit. Report given and they are ready for her in room #204. [facility] 10-07-2023 Nurse Note Admitted to room 204 from surgery. Oriented to room. Call light given.Left leg dressing intact with no noted drainage.Hemovac drain in place draining small amount bloody liquid.Circulation adequate to left lower extremity. [facility] Work Phone: 10-07-2023 Note Formatting of this n ote might be different from the original. Pt rests with eyes closed. Voices no c/o. Pt HOB raised to drink some Sprite. Nazario hugger in place for comfort. Mariano bandage with hemovac noted D&I. Circulation to operative leg with brisk refill and pedal pulse 2-3+. Bilat NAVEEN hose in place. Monitor NSR. Pt room air. [facility] Work Phone: 10-07-2023 Note Formatting of this n ote is different from the original. Knee Replacement Total Cement Unilat (L) Operative Note Date: 10/07/2023 OR Location: [facility] Name: Maddie Ba, : 1945, Age: 78 y.o., , Sex: female Diagnosis Pre-op Diagnosis * Unilateral primary osteoarthritis, left knee [M17.12] Post-op Diagnosis * Unilateral primary osteoarthritis, left knee [M17.12] Procedures Knee Replacement Total Cement Unilat 93353 - MT ARTHRP KNE CONDYLE&PLATU MEDIAL&LAT COMPARTMENTS Surgeons * Thao Justin - Primary Resident/Fellow/Other Shovel Operator: Surgeons and Role: * No surgeons found with a matching role * Procedure Summary Anesthesia: Consult ASA: II Anesthesia Staff: Anesthesiologist: Rivera Mejía MD C-AA: FUNMI Holder Estimated Blood Loss: 25mL Intra-op Medications: Administrations occurring from 0830 to 1030 on 10/07/23: Medication Name Total Dose ceFAZolin in dextrose (iso-os) (Ancef) IVPB 2 g 2 g Anesthesia Record Intraprocedure I/O Totals Intake Tranexamic Acid 0.00 mL The total shown is the total volume documented since Anesthesia Start was filed. Total Intake 0 mL Output Est. Blood Loss 25 mL Total Output 25 mL Net Net Volume -25 mL Specimen: No specimens collected Staff: Stave Cutter: Kiley Dc RN Scrub Person: Eugenie Mota; Anne Cintron Drains and/or Catheters: * None in log * Tourniquet Times: * Missing tourniquet times found for documented tourniquets in lo * Implants: Implants Type Name Action Serial No. Joint Knee DOME, PATELLA, MEDIALIZED, 32MM - [id number] Implanted Joint Knee FEMORAL, ATTUNE PS, DEBBIE, NRW, SZ 4, LT - [id number] Implanted Joint Knee BONE CEMENT, SMART SET, HIGH VISCOSITY, 40GM - [id number] Implanted SIZE 2 ATTUNE FIXED BEARING TIBIAL BASE, CEMENTED Implanted Joint Knee INSERT, ATTUNE PS FB, SZ 4, 6MM - [id number] Implanted Findings: severe OA Indications: Maddie Ba is an 78 y.o. female who is having surgery for Unilateral primary osteoarthritis, left knee [M17.12]. The patient was seen in the preoperative area. The risks, benefits, complications, treatment options, non-operative alternatives, expected recovery and outcomes were discussed with the patient. The possibilities of reaction to medication, pulmonary aspiration, injury to surrounding structures, bleeding, recurrent infection, the need for additional procedures, failure to diagnose a condition, and creating a complication requiring transfusion or operation were discussed with the patient. The patient concurred with the proposed plan, giving informed consent. The site of surgery was properly noted/marked if necessary per policy. The patient has been actively warmed in preoperative area. Preoperative antibiotics have been ordered and given within 1 hours of incision. Venous thrombosis prophylaxis bilateral sequential compression. Procedure Details: L TKA Complications: None; patient tolerated the procedure well. Disposition: PACU - hemodynamically stable. Condition: stable PREOPERATIVE DIAGNOSIS: left knee osteoarthritis POSTOPERATIVE DIAGNOSIS: left knee osteoarthritis OPERATION/PROCEDURE: left total knee arthroplasty SURGEON: Thao Justin MD FOOD SAFETY DIRECTOR(S): Roselia ANESTHESIA: spinal LOCATION: [facility] ESTIMATED BLOOD LOSS AND INTRAVENOUS FLUIDS: Please see Anesthesia record. COMPONENTS USED: [employer]onix[employer] knee system 1. 4N femur 2. 2 tibia 3. 32 patella 4. 6mm insert BRIEF CLINICAL NOTE: The patient is a 78 yo female with advanced osteoarthritis of their left knee. They failed conservative treatment and wished to proceed with total knee arthroplasty which is indicated at this time. We discussed the risks, benefits, and alternatives of surgery including but not limited to infection, damage to vessel or nerve, bleeding, soft tissue pain, DVT, PE, problems with anesthesia, lack of range of motion, continued soft tissue pain, need for further surgery, etc. Consent was obtained. They were taken to the operating room in order to undergo the procedure. PRE-OP ROM: 5-110 OPERATIVE REPORT: The patient was transferred to the operating room table. Time-out was performed confirming patient name, medical record number, surgical site, and adequate and appropriate imaging. The patient received appropriate IV antibiotics as well as tranexamic acid. Once we were prepped and draped,midline skin incision was performed. Hemostasis was obtained using electrocautery. Underlying extensor mechanism was easily identified and entered using a standard medial parapatellar arthrotomy performedsharply. The infrapatellar and suprapatellar fat pads were debrided.Initial medial release was performed. The patella was subluxed laterally. Distal femur was entered using a step drill. Distal femoral cut was performed, and the femur was sized and prepared. The tibia was subluxed forward using a double-prong PCL retractor. The proximal tibia was cut in neutral mechanical axis using an extramedullary tibial guide. We then used the lamina linux solaris administrator to clear out the posterior osteophytes and clear the meniscal remnants. We then sized the tibia and prepared it. We cut the patella freehand using a caliper to restore the [place] patellar height. We then trialed with multiple polyethylene inserts. Once I was happy with the position of components and stability of the knee, all trial components were removed. The cut bony surfaces were thoroughly irrigated and dried. We then cemented into place the real components. The knee was held in extension until all cement was hardened. All extraneous cement was removed. We then closed the extensor mechanism over a drain using interrupted #2 Ethibond as well as interrupted 0 Vicryl. The subcu was closed with interrupted 2-0 Vicryl. The skin was closed with running 3-0 Biosyn followed by Dermabond and Steri-Strips. Dry sterile dressing was placed. The patient was transferred back to the hospital bed without incident or complication. She will be weightbearing as tolerated. They will be on ASA and SCDs for DVT prophylaxis. Additional Details: WBAT, ASA Attending Attestation: I was present and scrubbed for the guevara portions of the procedure. [facility] Work Phone: 10-07-2023 Note Formatting of this n ote might be different from the original. Bilateral knee high TEDS applied per order. [facility] Work Phone: 10-06-2023 Hospital Discharge instructions Francisco Veloz MD - 10/06/2023 9:21 AM EDT Images from the original note were not included. MD Brandon Davis MPAS, CHAD, ATC Adult Reconstruction and Joint Replacement Surgery DISCHARGE INSTRUCTIONS PLEASE READ CAREFULLY BEFORE CONTACTING YOUR PROVIDER. WE WORK COLLABORATIVELY A TEAM. CALLING MULTIPLE STAFF MEMBERS REGARDING THE SAME ISSUE WILL DELAY YOUR CARE. [employer] IS THE PREFERRED COMMUNICATION FOR ALL TEAM MEMBERS. POSTOPERATIVE INSTRUCTIONS: TOTAL HIP & TOTAL KNEE ARTHROPLASTY JOINT CARE TEAM Please use the information below to contact your care team following surgery. If you are leaving a message or using the My Chart portal, please include your full name, date of and date of surgery so that we can correctly identify you. Your call will be returned within 1-2 business days, please do not leave multiple messages with other staff regarding a single issue while you are awaiting a return call. Who to call Contact Information Matters needing handled Brandon Donis PA-C Physician Shovel Operator [employer] Portal Medical questions/concerns Iesha Saenz-Senior Backup Administrator [phone] opt. fax [phone] Scheduling office Visits Medical questions/concerns Leave of Absence or other paperwork Any concerns more than 6 weeks from surgery - an appointment will need to be made Katelynn Coker MBA, BSN, RN-BC Ortho Nurse Navigator [place] Maddie Villalpando RN, BSN Ortho Nurse Navigator [place] __ Mike Duong RN, BSN Ortho Coordinator [place]ille RebollarTamekahumberto Schultz BSN- Ortho Nurse Navigator [place] [phone] Please call staff at the institution in which you had surgery for prescription refills Prescription Refills Nursing, medical question related questions or concerns within 6 weeks of surgery Orders for Outpatient Physical Therapy MEDICATION REFILLS - MyChart or Nurse Navigator (Above) at the institution in which you had surgery. [facility] [place] or [place]. -You will NOT receive a call indicating that your prescription has been filled. Please contact your pharmacy with any questions. Medication refills will be filled Thursday-Thursday 7am to 1pm ONLY. Please call the nurse navigator office or send a i[employer] message for a refill request. Any requests received outside of this timeframe will be handled on the next business day. Please do not call multiple times or call other members of the care team for medication needs, this will cause the refill to take longer. Per State and Institutional policy, pain medications can only be refilled every 7 days for up to six weeks following surgery. My Chart Portal: If you are using the My Chart portal and are requesting a medication refill, please list what type of surgery you had and left or right side, medication that needs refilled, and pharmacy you would like your medication sent. WEIGHT BEARING- weight bearing as tolerated to operative extremity ACTIVITY-As Tolerated DRIVING & TRAVEL AFTER SURGERY Patients should anticipate waiting at least 4-6 weeks before traveling long distances after surgery. You will need to stop to walk around ever 1 hour during your travel to help with blood clot prevention. Patients may not drive until cleared by the joint nurse or the office and you are off of all narcotics. DENTAL PROCEDURES & CLEANINGS You must wait a minimum of 3 months for elective dental appointments after a total joint replacement, including routine cleanings or dental work including bridges, crowns, extractions, etc.. Unless, it is an emergency. You will need a prophylactic antibiotic lifelong prior to any dental visit, cleaning or procedure. Your surgeon's office or your dentist may provide a prescription antibiotic. Antibiotics are a lifelong need before dental appointments. You do not need antibiotics for endoscopic procedures such as colonoscopy or EGD, dermatologic biopsies or eye surgeries. WOUND CARE If you experience continued drainage or bleeding, you may cover with abdominal/Maxi pads (purchase at local drug store). Knee replacements should wrap with an mariano wrap. You may shower with waterproof dressing on. Your surgical bandage will be removed by your home therapist 1 week after surgery. If you have delilah intact, home care will remove in 2 weeks. If you have sutures intact, you will need to return to the office in 2 weeks for suture removal. Once the dressing is removed by home care, you may continue to shower. Let soap and water wash over the wound. DO NOT SCRUB. Steri-strips under the bandage will remain in place until they fall off on their own. If they are loose, you may gently remove. If they have not fallen off in two weeks, gently peel them off. Do not remove if pulling causes resistance against the incision. You will see suture tails sticking out of the ends of the incision. DO NOT CUT THEM. They will fall off when the sutures dissolve. If they are bothersome, cover with a band aid. Do not soak in a bath tub, hot tub, pool or klein until you are 8 weeks out from surgery. Do not apply lotions, creams or ointments until you are 6 weeks out from surgery, PAIN, SWELLING, BRUISING & CLICKING Pain and swelling are a natural part of your recovery which is considered normal for up to a year after surgery. Symptoms may be treated with movement, ice, compression stockings, elevating your leg, and by following the pain medication regimen as prescribed. Bruising is normal for several weeks after surgery. You may also have leg swelling and pain in your wang. You may ice areas that are tender to help with discomfort. You are required to wear the provided compression stockings, every day, for 4 weeks following surgery. Remove the stockings at night and place them back on in the morning. Pain and swelling may temporarily increase with an increase in activity or exercise. Use ice after activity. Audible clicking with movement or exercises is considered normal following joint replacement. If this persists at 6 months or 1 year, please notify your surgeon. You may also feel decreased sensation or numbness near the incision site. This is normal and sensation may or may not return. PERSONAL HYGIENE You may shower upon discharging from the hospital. Soap and water is permitted to run over the surgical dressing, steri-strips and incision. Do not scrub directly over these items. DO NOT soak your incision in a bath, hot tub, pool or pond/klein for a minimum of 8 weeks following your surgery. DO NOT use lotions, creams, ointments on your wound for a minimum of 6 weeks following your surgery. At that time you may use vitamin E to assist with softening of your incision. RESTARTING HOME ROUTINE - DIET & MEDICATIONS Post-operative constipation can result due to a combination of inactivity, anesthesia and pain medication. To help prevent this, you should increase your water and fiber intake. Physical activity such as walking will also help stimulate the bowels. You may resume your normal diet when you discharge home. To avoid constipation, choose foods that help promote good bowel habits, such as foods high in fiber. You may restart your home medications the following day after your surgery UNLESS you have been given alternate instructions. Follow the instructions given to you on your hospital discharge instructions for more information regarding your home medications. IF YOU EXPERIENCE NAUSEA OR DIARRHEA, FOLLOW THE B.R.A.T. DIET UNTIL SYMPTOMS RESOLVE. If you are experiencing vomiting that lasts more than 24 hours, please contact your joint nurse. IN-HOME PHYSICAL THERAPY & OUTPATIENT PHYSICAL THERAPY In-home physical therapy will start 1-2 days after you get home from the hospital. The home care agency will call within the first 24-48 hours to set up their first visit. Please do not call your care team to inquire during this timeframe. Continue the exercises you were given in the hospital until you have been seen by in-home therapy. Make sure to provide a phone number with the ability for the home care staff to leave a message if you do not answer your phone. Outpatient physical therapy following knee replacement surgery should begin 2-3 weeks after surgery. You will be given physical therapy order prior to discharge from the hospital. You should call to schedule this appointment VICKI if not already scheduled before surgery. Waiting until you are ready for outpatient physical therapy will cause a delay in your care. You may choose any outpatient physical therapy location. EMERGENCIES - WHEN TO CONTACT THE SURGEON'S OFFICE IMMEDIATELY Fever >101 with chills that has been present for at least 48 hours. Excessive bleeding from incision that will not slow down. A small amount of drainage is normal and expected. Once pressure is applied and the area is covered, do not continue to check the area regularly. This will remove pressure and bleeding will continue. Leave in place for 4-6 hours. Signs of infection of incision-excessive drainage that is soaking through your dressing (especially if it is pus-like), redness that is spreading out from the edges of your incision, or increased warmth around the area. Excruciating pain for which the pain medication, taken as instructed, is not helping. Severe calf pain. Go directly to the emergency room or call 911, if you are experiencing chest pain or difficulty breathing. ICE & COLD THERAPY INSTRUCTIONS To assist with pain control and post-op swelling, you should be using ice regularly throughout recovery, especially for the first 6 weeks, regardless of the cold therapy method you use. Always make sure there is a layer of protection between the cold pad and your skin. If you are using ICE PACKS or GEL PACKS, you will need to alternate 20 minutes on, 20 minutes off twice per hour. If you are using an ICE MACHINE, please follow the provided ice machine instructions. These devices differ from ice or ice packs whereas the mechanism circulates water through tubing and a pad to provide longer periods of cold therapy to the desired site. You can use your cold devices around the clock for optimal comfort. We recommend using cold therapy after working with therapy or completing exercises on your own. There is no set schedule in which you must follow while using cold therapy. Below are a few points to remember when using a cold therapy device: You do not need to need to use the 20 on, 20 off method. Detach the pad from the cooler and ambulate at least once every hour. You can check your skin under the pad at this time. You may wear the cold therapy device during periods of sleep including overnight. If you wake up during the night, you can check the skin at this time. You do not need to wake up specifically to perform skin checks. Empty the cooler and pad when device is not in use. Follow receiving dock checker's instructions for cleaning your cold therapy device. DISCHARGE MEDICATIONS - Please reference the sample schedule on the reverse side for instructions on how to best schedule medications. PAIN MEDICATION ___X_ Tramadol / Oxycodone Tramadol and Oxycodone have been prescribed for post-operative pain control. These medications will only be refilled ONCE every 7 days for a period of up to 6 weeks following surgery. After 6 weeks, you will transition to acetaminophen and over -the- counter anti-inflammatories such as Ibuprofen, Advil or Aleve in conjunction with ICE/COLD THERAPY. Side effects may be constipation and nausea, vomiting, sleepiness, dizziness, lightheadedness, headache, blurred vision, dry mouth sweating, itching (if you have itching, over-the -counter Benadryl can be used as needed). You may NOT operate a motor vehicle while taking these medications or have been cleared by your care team. ___X_ Acetaminophen (Tylenol) Acetaminophen has been prescribed as an adjunct for pain control. Take two 500 mg tablets every 6 hours for 4 weeks. You will not receive a refill on this medication. Do not exceed 4000mg of acetaminophen within a 24 hour period. Side effects may include nausea, heartburn, drowsiness, and headache. ___X_ Meloxicam (Mobic)-Meloxicam has been prescribed as an adjunct anti-inflammatory to assist in pain control. Take one 15mg tablet once daily for 4 weeks. You will not receive refills on this medication. Side effects may include nausea. May not be prescribed if you are on a more potent blood thinner than aspirin or have chronic kidney disease. BLOOD THINNER ___X_ Blood Thinner A blood thinner has been prescribed to prevent blood clots in your leg or lungs. Take as prescribed on the bottle for 4 weeks. You will not receive a refill on this medication. ANTI NAUSEA ___X_ Proton Pump Inhibitor (PPI)-Stomach Acid Reduction Medication If you are already on a PPI, you will continue your regular medication. If you are not, you will be prescribed Pantoprazole to help with nausea and protect your stomach while taking pain medication. You will not receive a refill on this medication. STOOL SOFTENERS ___X_ Colace (Docusate Sodium) & Miralax (polyethylene glycol) Take both medications to help with constipation while using the Oxycodone and Tramadol for pain control. You will not receive a refill on this medication. Continued Constipation If you continue to be constipated despite daily use of Miralax and Colace, you try an [id number] Dulcolax Suppository and use per instructions on the package. SPECIAL INSTRUCTIONS none You will not receive refills on the following medications. Acetaminophen (Tylenol Meloxicam Miralax Colace Proton Pump Inhibitor (PPI) Blood Thinner Pain Medication Refills - Ortho Nurse Navigator or MyChart- Thursday through Thursday 7am-1pm FOLLOW-UP- You should have an appointment with either Dr. Justin or MANUEL Rockwell in 6 weeks. SAMPLE The times below are an example of how to organize medications to optimize pain control Your actual medication schedule may vary based on your last dose taken IN THE HOSPITAL Time 3:00 am 6:00 am 9:00 am 12:00 pm 3:00 pm 6:00 pm 9:00 pm 12:00 am Medications Tramadol Tylenol Oxycodone Miralax Blood Thinner Colace Pantoprazole or other PPI Tramadol Meloxicam Tylenol Oxycodone Tramadol Tylenol Oxycodone Miralax Blood Thinner Colace Tramadol Tylenol Oxycodone You may begin to wean off the pain medication as your pain remains controlled with increased activity. The schedules provided are meant to serve as an example. You may wean off based on your pain control. Please note that pain medications are not filled beyond 6 weeks after surgery. The times below are an example of how to WEAN OFF medications WHILE CONTINUING TO OPTIMIZE PAIN CONTROL. Your actual medication schedule may vary based on your last dose taken. Time 12:00am 4:00am 8:00am 12:00pm 4:00pm 8:00pm Med Tramadol Oxycodone Tramadol Oxycodone Tramadol Oxycodone Time 12:00am 6:00am 12:00pm 6:00pm Med Tramadol Oxycodone Tramadol Oxycodone Time 12:00am 8:00am 4:00pm Med Tramadol Oxycodone Tramadol Time 12:00am 12:00pm Med Tramadol Tramadol TOTAL KNEE REPLACEMENT PATIENTS SHOULD TRANSITION TO OUTPATIENT PHYSICAL THERAPY NO MORE THAN 3 WEEKS FOLLOWING SURGERY. PLEASE SEE THE LIST OF FACILITIES BELOW. CALL TO SCHEDULE YOUR FIRST APPOINTMENT BEFORE YOU HAVE YOUR SURGERY. documented in this encounter [facility] Work Phone: 06-23-2023 Evaluation note Encounter Date Diagnosis Assessment Notes Jun, COVID-19 (ICD-10 - U07.1) Instructed to use Robitussin or Mucinex for cough, saline or Flonase NS for congestion, Tylenol for pain and fever. Self isolate at home. - Cannot work - avoid contact with others - avoid pets - wipe counters, door knobs if touched - if can't avoid leaving home, must wear mask to protect others - need to stay isolated for 10 days from onset of symptoms - to discontinue isolation must be 5 days AND must be without fever for 24 hours AND symptoms must be improving. Always wear a mask in public places for complete 10 days Jun, Primary hypertension (ICD-10 - I10) Instructed to stop Amlodipine while taking Paxlovid [facility] Other 12-27-2023 Evaluation note* Encounter Date Diagnosis Assessment Notes Treatment Notes Treatment Clinical Notes May, Primary hypertension (ICD-10 - I10) [facility] Other 12-21-2023 History of Present illness Narrative* Thao Justin MD - 06/11/2023 2:15 PM ESTAssociated Order(s): L Inj/Asp: L knee Post-Procedure Diagnose(s): Primary osteoarthritis of left knee L Inj/Asp: L knee on 06/11/2023 2:52 PM Indications: pain and joint swelling Details: 22 G needle, anterolateral approach Medications: 4 mL lidocaine 10 mg/mL (1 %); 1 mL triamcinolone acetonide 40 mg/mL Discussion: I discussed the conservative treatment options for knee osteoarthritis including but not limited tophysical therapy, oral NSAIDS, activity and lifestyle modification, and corticosteroid injections. Pt has elected to undergo a cortisone injection today. I have explained the risk and benefits of an i njection including the possibility of joint infection, bleeding, damage to cartilage, allergic reaction. Patient verbalized understanding and gave verbal consent wishes to proceed with a intra-articular cortisone injection for their knee. Procedure: After discussing the risk and benefits of the procedure, we proceeded with an intra-articular left knee injection. With the patient's informed verbal consent, the left knee was prepped in standard sterile fashion with Chlorhexidine. The skin was then anesthetized with ethyl chloride spray and cleaned again with Chlorhexidine. The knee was then apirated/injected with a prefilled 20-gauge syringe of 40 mg Kenalog+ 4 ml Lidocaine using the lateral approach without complications. The patient tolerated this well and felt immediate initial relief of symptoms. A bandaid was applied and the patient ambulated out of the clinic on ther own accord without difficulty. Patient was instructed to avoid physical activity for 24-48 hours to prevent the knees from swelling and may ice the knees as tolerated. Patient should contact the office if any signs of of infection appear: redness, fever, chills, drainage, swelling or warmth to the knees. Pt understands that the injections can be repeated no sooner than 3 months. Procedure, treatment alternatives, risks and benefits explained, specific risks discussed. Consent was given by the patient. Immediately prior to procedure a time out was called to verify the correctpatient, procedure, equipment, technician support engineer and site/side marked as required. Patient was prepped and draped in the usual sterile fashion. documented in this [facility] Work Phone: [phone] 848-747712-13-2023 NoteCLINICAL HISTORY: Menopause bone density evaluation COMPARISON: NONE. FINDINGS: Bone density measurements for the left femoral neck neck are BMD 0.677 g/cm2 T score -1.5 age-matched Z score 0.6 Osteopenia Bone density measurements for the right femoral neckl are BMD 0.687 g/cm2 T score -1.5 age-matched Z score 0.7 Osteopenia This corresponds to a 16.2% increase in bone mineral density from baseline obtained at 74 years of age. Bone density measurements for the lumbar spine (L1-L4 ) are BMD 1.080 g/cm2 T score 0.3 age-matched Z score 2.8 Normal This corresponds to a 18.3% increase in bone mineral density from baseline obtained at 74 years of age. FRAX score, 10-year fracture risk Not calculated due to a history of osteoporosis treatment IMPRESSION: The bone density measurements for the femoral necks indicate OSTEOPENIA and place the patient at a mild to moderate increased risk for fracture. There may be a future risk of developing osteoporosis.Recommend follow-up exam in one year, sooner if clinically necessary. Note World Health Organization definition of osteoporosis and osteopenia for women: Normal = T score at or above -1.0 SD Osteopenia = T score between -1.0 and -2.5 SD Osteoporosis = T score at or below -2.5 SD Pharmacologic treatment recommendations * Initiate pharmacologic treatment: * In those with hip or vertebral (clinical or asymptomatic) fractures * In those with T-scores ??2.5 at the femoral neck, total hip, or lumbar spine by DXA * In postmenopausal women and men age 50 and older with low bone mass (T-score between ?1.0 and ?2.5,osteopenia) at the femoral neck, total hip, or lumbar spine by DXA and a 10-year hip fracture probability ?3 % or a 10-year major osteoporosis-related fracture probability ?20 % based on the [place]-adapted WHO absolute fracture risk model (Fracture Risk Algorithm (FRAX?); www.NOF.org and www.shef.ac.uk/FRAX) ELECTRONICALLY SIGNED BY: Ephraim Reilly [id number] Evaluation note* Encounter Date Diagnosis Assessment Notes Treatment Notes Treatment Clinical Notes Mar, Abnormal TSH (ICD-10 - R79.89) [facility] Other 10-12-2023 Evaluation note* Encounter Date Diagnosis Assessment Notes Treatment Notes Treatment Clinical Notes Mar, Age-related osteoporosis without current pathological fracture (ICD-10 - M81.0) Mar, Menopause (ICD-10 - Z78.0) Mar, Screening mammogram, encounter for (ICD-10 - Z12.31) [facility] Other 09-08-2023 Evaluation note* Encounter Date Diagnosis Assessment Notes Treatment Notes Treatment Clinical Notes Feb, Primary hypertension (ICD-10 - I10) This patient is instructed to consume a healthy, low-fat, low-salt diet. They are also encouraged to continue exercise to achieve/maintain a normal BMI. Feb, Age-related osteoporosis without current pathological fracture (ICD-10 - M81.0) Continue Ca and Vit D supplements. Continue weight bearing exercises DEXA in May and Prolia due in Feb, Unexplained weight loss (ICD-10 - R63.4) Healthy diet, Ensure/Boost daily Check CBC, BS and TSH Feb, Fatigue, unspecified type (ICD-10 - R53.83) Healthy diet and exercise Proper sleep routine. MVI daily, Ca/Vit D daily Check labs for TSH, BS and H/H Feb, Vitamin D deficiency (ICD-10 - E55.9) Continue supplement Recheck level Stressed importance of maintaining normal Vit D level for bone health Feb, High risk medication use (ICD-10 - Z79.899) Check labs: CBC, CMP [facility] Other 09-08-2023 Evaluation note* Encounter Date Diagnosis Assessment Notes Treatment Notes Treatment Clinical Notes Feb, Decreased thyroid stimulating hormone (TSH) level (ICD-10 - R79.89) [facility] Other 06-30-2023 Evaluation note* Encounter Date Diagnosis Assessment Notes Treatment Notes Treatment Clinical Notes Nov, 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 PO/topical NSAIDs as needed. Referral for TKA consideration Nov, Pain in right knee (ICD-10 - M25.561) Ice/heat and Voltaren Gel. Tylenol as needed. Avoid squatting or kneeling XR Nov, Other chronic pain (ICD-10 - G89.29) Nov, History of total right knee replacement (ICD-10 - Z96.651) Nov, Other Quad exercises, ice/heat and Voltaren Gel. Tylenol as needed. Avoid squatting or kneeling [facility] Other 04-18-2023 NoteHNO ID: [id number] Author: Imtiaz Tilley MD Service: ? Author Type: Physician Type: Progress Notes Filed: 10/09/2022 2:46 PM Note Text: Rheumatology Office Follow-Up Note Date of Service: October 07, 2022 Last Rheumatology Clinic Visit: 02/04/2022 (with Tres Pedraza) Chief Complaint/Reason for Visit: PMR HPI/Interval Events: Maddie Ba is a 77 year old female with PMH significant for HTN and osteoporosis who presents PMR follow-up. Has not been in since Jan 2022. Is currently on 1 mg pred every other day No recurrence of muscle pain or stiffness. She is doing quite well. No cranial GCA symptoms. EMG consistent with bilateral carpal tunnel syndrome. Her finger numbness is stable. She does not feel that the splints have made much difference. Not impacting her quality of life at this time. Rheumatologic History: Jan 2022 - muscle pain and stiffness in the shoulder and hip girdle with elevated inflammatory markers and a rapid resolution of symptoms with prednisone therapy. She did not have any cranial GCA symptoms. Started on moderate dose prednisone 15 mg with a taper by 2.5 mg every week until on 5 mg prednisone and stay at 5 mg. PAST MEDICAL HISTORY Diagnosis Date Essential hypertension Migraines history of No past surgical history on file. No family history on file. Social History Tobacco Use Smoking status: Never Smokeless tobacco: Never Substance Use Topics Alcohol use: Yes Alcohol/week: 3.0 standard drinks Types: 3 Glasses of wine per week Drug use: Never Current Outpatient Medications Medication Sig amLODIPine (NORVASC) 5 mg tablet estrogens, conjugated (PREMARIN VAGINAL) Use vaginally. denosumab (PROLIA SUBCUTANEOUS) Inject subcutaneously. No current facility-administered medications for this visit. No flowsheet data found. Review of Systems CONSTITUTION: Negative for: Weight loss or gain, Fever. Chills, Night sweats HEENT: Negative for: Nosebleeds, Mouth sores, Trouble swallowing, Dry mouth RESPIRATORY: Negative for: Cough, Shortness of breath, Pain with breathing, Coughing up blood GASTROINTESTINAL: Negative for: Melena, Diarrhea, Abdominal pain, Heartburn, MUSCULOSKELETAL: Negative for: Arthralgias, Myalgias, Muscle weakness, Joint swelling, Morning stiffness in joints NEUROLOGICAL: Negative for: Headaches, Numbness, Memory loss, SKIN: Negative for: Rashes, Sun sensitive rashes, Skin color changes, Hair loss, Nail changes EYES: Negative for: Eye pain, Eye redness, Visual disturbance, Eye dryness CARDIOVASCULAR: Negative for: Chest pain, Leg swelling, Arrhythmia, Presyncope GENITOURINARY: Negative for: Dysuria, Hematuria, Ulceration HEMATOLOGIC/LYMPHATIC: Negative for: Swollen glands PHQ9 No flowsheet data found. Reference Values for PHQ9 0 - 4: Minimal Depression 5 - 9: Mild Depression 10 - 14: Moderate Depression 15 - 19: Moderately Severe Depression 20 - 27: Severe Depression Physical Exam: BP 134/84 Pulse 76 Temp 36.7 ?C (98 ?F) (Temporal) Ht 152.4 cm (5') Wt 56.5 kg (124 lb 8 oz) SpO2 100% BMI 24.31 kg/m? Physical Exam Constitutional: Appearance: She is not ill-appearing. HENT: Head: Normocephalic and atraumatic. Mouth/Throat: Mouth: Mucous membranes are moist. Eyes: Extraocular Movements: Extraocular movements intact. Pupils: Pupils are equal, round, and reactive to light. Cardiovascular: Rate and Rhythm: Normal rate and regular rhythm. Heart sounds: No murmur heard. Pulmonary: Effort: Pulmonary effort is normal. Breath sounds: Normal breath sounds. No wheezing. Abdominal: Palpations: Abdomen is soft. Tenderness: There is no abdominal tenderness. Musculoskeletal: Right shoulder: No swelling, deformity or tenderness. Left shoulder: No swelling, deformity or tenderness. Right elbow: No swelling or deformity. Left elbow: No swelling or deformity. Right hand: No swelling or deformity. Left hand: No swelling or deformity. Cervical back: No tenderness or bony tenderness. Thoracic back: No deformity or bony tenderness. Lumbar back: No deformity or bony tenderness. Right hip: No deformity or tenderness. Left hip: No deformity or tenderness. Right knee: No swelling, effusion or crepitus. Left knee: No swelling, effusion or crepitus. Right ankle: No swelling or deformity. Left ankle: No swelling or deformity. Right foot: No swelling or deformity. Left foot: No swelling or deformity. Skin: General: Skin is warm and dry. Neurological: General: No focal deficit present. Mental Status: She is alert and oriented to person, place, and time. Mental status is at baseline. Labs: ESR, WSR Latest Ref Rng AND Units 02/04/2022 WSR 0 - 20 mm/hr 37(H) CRP Latest Ref Rng AND Units 02/04/2022 CRP <0.9 mg/dL 1.0(H) Imaging: Reviewed available imaging Assessment/Plan: M35.3 Polymyalgia rheumatica (HCC) (primary encounter diagnosis) Z79.52 rn long term care current use o (more content not included)...[facility]04-18-2023 History of Present illness Narrative* Imtiaz Tilley MD - 10/07/2022 12:45 PM EDT Images from the original note were not included. Rheumatology Office Follow-Up Note Date of Service: October 07, 2022 Last Rheumatology Clinic Visit: 02/04/2022 (with Tres Pedraza) Chief Complaint/Reason for Visit: PMR HPI/Interval Events: Maddie Ba is a 77 year old female with PMH significant for HTN and osteoporosis who presents PMR follow-up. Has not been in since Jan 2022. Is currently on 1 mg pred every other day No recurrence of muscle pain or stiffness. She is doing quite well. No cranial GCA symptoms. EMG consistent with bilateral carpal tunnel syndrome. Her finger numbness is stable. She does not feel that the splints have made much difference. Not impacting her quality of life at this time. Rheumatologic History: Jan 2022 - muscle pain and stiffness in the shoulder and hip girdle with elevated inflammatory markers and a rapid resolution of symptoms with prednisone therapy. She did not have any cranial GCA symptoms. Started on moderate dose prednisone 15 mg with a taper by 2.5 mg every week until on 5 mg prednisone and stay at 5 mg. PAST MEDICAL HISTORY Diagnosis Date Essential hypertension Migraines history of No past surgical history on file. No family history on file. Social History Tobacco Use Smoking status: Never Smokeless tobacco: Never Substance Use Topics Alcohol use: Yes Alcohol/week: 3.0 standard drinks Types: 3 Glasses of wine per week Drug use: Never Current Outpatient Medications Medication Sig amLODIPine (NORVASC) 5 mg tablet estrogens, conjugated (PREMARIN VAGINAL) Use vaginally. denosumab (PROLIA SUBCUTANEOUS) Inject subcutaneously. No current facility-administered medications for this visit. No flowsheet data found. Review of Systems CONSTITUTION: Negative for: Weight loss or gain, Fever. Chills, Night sweats HEENT: Negative for: Nosebleeds, Mouth sores, Trouble swallowing, Dry mouth RESPIRATORY: Negative for: Cough, Shortness of breath, Pain with breathing, Coughing up blood GASTROINTESTINAL: Negative for: Melena, Diarrhea, Abdominal pain, Heartburn, MUSCULOSKELETAL: Negative for: Arthralgias, Myalgias, Muscle weakness, Joint swelling, Morning stiffness in joints NEUROLOGICAL: Negative for: Headaches, Numbness, Memory loss, SKIN: Negative for: Rashes, Sun sensitive rashes, Skin color changes, Hair loss, Nail changes EYES: Negative for: Eye pain, Eye redness, Visual disturbance, Eye dryness CARDIOVASCULAR: Negative for: Chest pain, Leg swelling, Arrhythmia, Presyncope GENITOURINARY: Negative for: Dysuria, Hematuria, Ulceration HEMATOLOGIC/LYMPHATIC: Negative for: Swollen glands PHQ9 No flowsheet data found. Reference Values for PHQ9 0 - 4: Minimal Depression 5 - 9: Mild Depression 10 - 14: Moderate Depression 15 - 19: Moderately Severe Depression 20 - 27: Severe Depression Physical Exam: BP 134/84 Pulse 76 Temp 36.7 C (98 F) (Temporal) Ht 152.4 cm (5') Wt 56.5 kg (124 lb 8 oz) SpO2 100% BMI 24.31 kg/m Physical Exam Constitutional: Appearance: She is not ill-appearing. HENT: Head: Normocephalic and atraumatic. Mouth/Throat: Mouth: Mucous membranes are moist. Eyes: Extraocular Movements: Extraocular movements intact. Pupils: Pupils are equal, round, and reactive to light. Cardiovascular: Rate and Rhythm: Normal rate and regular rhythm. Heart sounds: No murmur heard. Pulmonary: Effort: Pulmonary effort is normal. Breath sounds: Normal breath sounds. No wheezing. Abdominal: Palpations: Abdomen is soft. Tenderness: There is no abdominal tenderness. Musculoskeletal: Right shoulder: No swelling, deformity or tenderness. Left shoulder: No swelling, deformity or tenderness. Right elbow: No swelling or deformity. Left elbow: No swelling or deformity. Right hand: No swelling or deformity. Left hand: No swelling or deformity. Cervical back: No tenderness or bony tenderness. Thoracic back: No deformity or bony tenderness. Lumbar back: No deformity or bony tenderness. Right hip: No deformity or tenderness. Left hip: No deformity or tenderness. Right knee: No swelling, effusion or crepitus. Left knee: No swelling, effusion or crepitus. Right ankle: No swelling or deformity. Left ankle: No swelling or deformity. Right foot: No swelling or deformity. Left foot: No swelling or deformity. Skin: General: Skin is warm and dry. Neurological: General: No focal deficit present. Mental Status: She is alert and oriented to person, place, and time. Mental status is at baseline. Labs: ESR, WSR Latest Ref Rng & Units 02/04/2022 WSR 0 - 20 mm/hr 37(H) CRP Latest Ref Rng & Units 02/04/2022 CRP <0.9 mg/dL 1.0(H) Imaging: Reviewed available imaging Assessment/Plan: M35.3 Polymyalgia rheumatica (HCC) (primary encounter diagnosis) Z79.52 rn long term care current use of systemic steroids Comment: This is a 77 year old female who presents for PMR follow-up. Her disease is quiet at this point on minimal steroid (1 mg every other day). At this point, with her history of osteoporosis, would be best to get her off of the prednisone entirely and will monitor off of therapy. She is agreeable. She will take pred 10 mg if symptoms recur and call me. G56.03 Carpal tunnel syndrome, bilateral Comment: CTS symptoms stable, not improved by the neutral splints from [facility]. If symptoms worsen, would consider hand surgery referral. Medications: Stop prednisone. Labs: None today Imaging: None today Consults: Consider hand surgery if CTS gets worse Follow-up: PRN Patient seen and discussed with Rheumatology Staff, Dr Jarek Pedraza MD Rheumatology Fellow Department of Rheumatologic and Immunologic Disease I reviewed the history and physical obtained and documented by the resident/fellow and I personallyparticipated in the guevara components. The following comments revise or confirm relevant guevara elements of resident/fellow's note: History:as given Physical Exam: agree with findings I discussed the case and the plans with the resident/fellow with the following comments: agree withapproach Impression/Plan 77 yo female with hx of PMR, doing very well with tapering prednisone. Agree with above. Imtiaz Tilley MD Rheumatology Staff [id number] documented [facility] Instructions* Patient Instructions* Tres Pedraza MD - 10/07/2022 12:32 PM EDT Stop prednisone Call us back if any issues come up again, if the same stiffness and pain comes back, take 10 mg prednisone Regarding Carpal Tunnel, if it gets worse would have you see a hand surgeon for consideration of surgical carpal tunnel release documented in this encounterMer[facility]10-04-2022 NoteHNO ID: [id number] Author: Cr Landry MD Service: ? Author Type: Physician Type: Progress Notes Filed: 03/25/2022 2:59 PM Note Text: UNIVERSAL PROTOCOL / SAFETY CHECKLIST Procedure to be Performed: EMG Sign In: A Moment of CARE was completed. Personnel directly involved with the procedure wore the appropriate PPE (Personal Protective Equipment). Patient/Surrogate Stated/Verified: PATIENT VERIFIED(optional for EMERGENT procedures): Patient name, Date of , Relevant allergies, and The intended procedure Time Out Communication: Intended patient and procedure match the source documents. Correct side/site marked and visible. Sign Out: SIGN OUT (optional for EMERGENT procedures): Post-procedure follow-up management communicated and Plan of Care Visit completed when applicable. Savi Landry, [facility]09-14-2022 NoteHNO ID: [id number] Author: Best Gutierrez, Service: ? Author Type: Physician Type: Progress Notes Filed: 03/05/2022 5:06 PM Note Text: [facility] New Patient Consultation March 05, 2022 HPI: Ms. Ba presents today secondary to issues of paresthesias of the hands.. She states that she has had a gradual feeling of the fingertips of her hands. She had the COVID vaccine update a few weeks earlier noticing afterwards she had multiple body aches in the joints. She was placed her on prednisone which helped but when she ended this the pains returned leading to be placed back on the steroids and referred to rheumatology who continued. In the same time she noticed the numbness in the first four fingers of each hand. She is right handed. She denies she does a lot of hand motions. She feels some weakness in her hands such as with opening jaws or holding something. Turning a door knob can be hard to turn at times. Prior to the steroids the feeling in the hands had awoken her at night. She denies neck pains or radicular neck pains. She has had some known bone spurs from 20 years ago. She had a home traction device she used for nearly a decade. She has not had any injuries. PAST MEDICAL HISTORY Diagnosis Date Essential hypertension Migraines history of History reviewed. No pertinent surgical history. Current Outpatient Medications on File Prior to Visit Medication Sig amLODIPine (NORVASC) 5 mg tablet estrogens, conjugated (PREMARIN VAGINAL) Use vaginally. denosumab (PROLIA SUBCUTANEOUS) Inject subcutaneously. predniSONE (DELTASONE) 5 mg tablet Take 3 tablets by mouth once daily for 7 days, THEN 2.5 tablets once daily for 7 days, THEN 2 tablets once daily for 7 days, THEN 1.5 tablets once daily for 7 days, THEN 1 tablet once daily. No current facility-administered medications on file prior to visit. Social History Tobacco Use Smoking status: Never Smokeless tobacco: Never ALLERGIES No Known Allergies Review of Systems: Constitutional: denies fever, weight loss, loss of appetite ENT: +/- loss of hearing, -vertigo Vision: denies blurring vison, double vision/diplopia Dermatologic: denies rash Cardiopulmonary: denies chest pain, palpitations, or skipped heart beats Respiratory: +shortness of breath with exertion GI: denies recent nausea, vomiting, diarrhea, constipation : denies incontinence Psych: denies depression, anxiety, or suicidal thoughts Sleep: denies issues with sleeping Heme: +easy bruising/bleeding Musculoskeletal: +weakness, -muscle atrophy, +joint ache/pain Back/spine: denies low back, mid back, or cervical pains Neuro: denies tremors, +weakness, loss of feeling, dizziness, seizure, blackout, +paresthesia, facial paresthesia, facial weakness, difficulty in speech, slurring of words, dysarthria, dysphagia, memory loss, headache Physical Exam: 03/05/22 1543 BP: 134/85 BP Site: Left Arm BP Position: Sitting BP Cuff Size: Regular Adult Pulse: 74 Patient is alert and in no distress. Dress is appropriate. Mood is appropriate Heart is regular rate and rhythm with no murmur or bruit auscultated Breathing appears regular and unstressed Neurologic examination: Cognitively intact. No deficits. No formal MMSE performed. CN: Pupils equal and reactive to light, extraocular movements intact with no nystagmus, face is symmetric with no facial droop, facial sensation intact bilaterally to light touch V1-3, hearing intact bilaterally, shoulder shrug is symmetric Motor exam shows 5/5 strength symmetric through the upper and lower extremities in all groups tested Sensory intact to light touch and temperature in all extremities. Vibratory sensation is vibration at the first toes bilaterally. Decreased pin prick in the second fingertips compared to the fifth bilaterally Deep tendon reflexes are symmetric at the biceps, brachioradialis, triceps, patella, and Achilles bilaterally Johnson's responses are both flexion. Coordination: No dysmetria on finger to nose. No tremors noted. No drift seen Gait normal in stance and pattern. Labs/studies: Cervical x-ray 02/04/2022 noting Disc space narrowing and osteophyte formation is present at the C3-4 through C7-T1 levels with additional narrowing and osteophytes at the atlantoaxial joint. In flexion, the atlantoaxial joint is normal. 5 to 6 mm of anterolisthesis noted at both C2-3 and C3-4, and approximately 5 mm anterolisthesis at C7-T1. In extension, the anterolisthesis at C2-3 decreases to 3 mm, C3-4 to 4 mm and C7-T1 4 mm. No retrolisthesis. Component Latest Ref Rng AND Units 02/04/2022 WSR 0 - 20 mm/hr 37 (H) CRP <0.9 mg/dL 1.0 (H) Vitamin B12 232 - 1,245 pg/mL 444 Folate >4.7 ng/mL 17.2 Assessment: R20.0, R20.2 Numbness and tingling in both hands Comment: As via history and examination greatly favor carpal tunnel syndrome. Note (more content not included)...[facility] 03-05-2022 History of Present illness Narrative* Best Gutierrez, DO - 03/05/2022 4:35 PM EDT [facility] New Patient Consultation March 05, 2022 HPI: Ms. Ba presents today secondary to issues of paresthesias of the hands.. She states that she has had a gradual feeling of the fingertips of her hands. She had the COVID vaccine update a few weeks earlier noticing afterwards she had multiple body aches in the joints. She was placed her on prednisone which helped but when she ended this the pains returned leading to be placed back on the steroids and referred to rheumatology who continued. In the same time she noticed the numbness in the first four fingers of each hand. She is right handed. She denies she does a lot of hand motions. She feels some weakness in her hands such as with opening jaws or holding something. Turning a door knob can be hard to turn at times. Prior to the steroids the feeling in the hands had awoken her at night. She denies neck pains or radicular neck pains. She has had some known bone spurs from 20 years ago.She had a home traction device she used for nearly a decade. She has not had any injuries. PAST MEDICAL HISTORY Diagnosis Date Essential hypertension Migraines history of History reviewed. No pertinent surgical history. Current Outpatient Medications on File Prior to Visit Medication Sig amLODIPine (NORVASC) 5 mg tablet estrogens, conjugated (PREMARIN VAGINAL) Use vaginally. denosumab (PROLIA SUBCUTANEOUS) Inject subcutaneously. predniSONE (DELTASONE) 5 mg tablet Take 3 tablets by mouth once daily for 7 days, THEN 2.5 tablets once daily for 7 days, THEN 2 tablets once daily for 7 days, THEN 1.5 tablets once daily for 7 days,THEN 1 tablet once daily. No current facility-administered medications on file prior to visit. Social History Tobacco Use Smoking status: Never Smokeless tobacco: Never ALLERGIES No Known Allergies Review of Systems: Constitutional: denies fever, weight loss, loss of appetite ENT: +/- loss of hearing, -vertigo Vision: denies blurring vison, double vision/diplopia Dermatologic: denies rash Cardiopulmonary: denies chest pain, palpitations, or skipped heart beats Respiratory: +shortness of breath with exertion GI: denies recent nausea, vomiting, diarrhea, constipation : denies incontinence Psych: denies depression, anxiety, or suicidal thoughts Sleep: denies issues with sleeping Heme: +easy bruising/bleeding Musculoskeletal: +weakness, -muscle atrophy, +joint ache/pain Back/spine: denies low back, mid back, or cervical pains Neuro: denies tremors, +weakness, loss of feeling, dizziness, seizure, blackout, +paresthesia, facial paresthesia, facial weakness, difficulty in speech, slurring of words, dysarthria, dysphagia, memory loss, headache Physical Exam: 03/05/22 1543 BP: 134/85 BP Site: Left Arm BP Position: Sitting BP Cuff Size: Regular Adult Pulse: 74 Patient is alert and in no distress. Dress is appropriate. Mood is appropriate Heart is regular rate and rhythm with no murmur or bruit auscultated Breathing appears regular and unstressed Neurologic examination: Cognitively intact. No deficits. No formal MMSE performed. CN: Pupils equal and reactive to light, extraocular movements intact with no nystagmus, face is symmetric with no facial droop, facial sensation intact bilaterally to light touch V1-3, hearing intactbilaterally, shoulder shrug is symmetric Motor exam shows 5/5 strength symmetric through the upper and lower extremities in all groups tested Sensory intact to light touch and temperature in all extremities. Vibratory sensation is vibration at the first toes bilaterally. Decreased pin prick in the second fingertips compared to the fifth bilaterally Deep tendon reflexes are symmetric at the biceps, brachioradialis, triceps, patella, and Achilles bilaterally Johnson's responses are both flexion. Coordination: No dysmetria on finger to nose. No tremors noted. No drift seen Gait normal in stance and pattern. Labs/studies: Cervical x-ray 02/04/2022 noting Disc space narrowing and osteophyte formation is present at the C3-4 through C7-T1 levels with additional narrowing and osteophytes at the atlantoaxial joint. In flexion, the atlantoaxial joint is normal. 5 to 6 mm of anterolisthesis noted at both C2-3 and C3-4, and approximately 5 mm anterolisthesis at C7-T1. In extension, the anterolisthesis at C2-3 decreases to 3 mm, C3-4 to 4 mm and C7-T1 4 mm. No retrolisthesis. Component Latest Ref Rng & Units 02/04/2022 WSR 0 - 20 mm/hr 37 (H) CRP <0.9 mg/dL 1.0 (H) Vitamin B12 232 - 1,245 pg/mL 444 Folate >4.7 ng/mL 17.2 Assessment: R20.0, R20.2 Numbness and tingling in both hands Comment: As via history and examination greatly favor carpal tunnel syndrome. Note made of cervicaldisc degenerative changes on x-ray but feel distal nerve issues more likely. PLAN: Chart reviewed including previous/interval progress notes, messages, recent imaging, and laboratoryresults. 2. Discussed options with the patient and after discussion she elects to the below. 3. EMG and nerve conduction study of the bilateral upper extremities to clarify presence or degree of carpal tunnel syndrome. 4. Asked to wear neutral splints nightly but loosely. 5. Hold thoughts on physical therapy for the moment. Thank you for allowing me to see this patient if there are any question or concerns please feel free to contact me at my clinic. Sincerely, Best Gutierrez D.O. documented in this encounterMer[facility]08-16-2022 NoteHNO ID: [id number] Author: RT Dipak([place]) Service: ? Author Type: Technologist Type: Progress Notes Filed: 02/04/2022 3:37 PM Note Text: Radiology Service Progress Note PATIENT NAME: Maddie Ba DATE OF SERVICE: February 04, 2022 TIME: 3:36 PM PATIENT IDENTITY VERIFICATION COMPLETED USING TWO (2) IDENTIFIERS: Name and Date of confirmed by patient verbally. FALL SCREENING: Has the patient had 2 falls in the last year or 1 fall with injury or currently using an Ambulatory Assistive Device (Walker, Cane, Wheelchair, Crutches, etc.)? No PATIENT GENDER DATA: Female. status: : No status: NO. PATIENT RELEVANT IMPLANT DATA REVIEWED: Not Applicable RADIOLOGY DEPARTMENT: General X-ray: Exam(s) Completed: Spine X-Ray(s): Cervical AP / LAT PERIPHERAL IV DATA: Not applicable SIGNED BY: RT Dipak([place]) February 04, 2022 3:36 [facility]08-16-2022 NoteHNO ID: [id number] Author: Imtiaz Tilley MD Service: ? Author Type: Physician Type: Progress Notes Filed: 02/06/2022 8:47 AM Note Text: Rheumatology Office Visit Note Date of Service: February 04, 2022 Reason for Consultation: Concern for PMR Consult Requested By: Cr Ferrari ([place]card[place]) [address] [facility] [id number] HPI: Maddie Ba is a 76 year old female with PMH significant for HTN and osteoporosis on Prolia who presents for evaluation for PMR. End of September 2021 she got her 4th COVID vaccine dose October 2021 - neck, shoulder, knees, and hips were hurting, aching, worst in the morning with stiffness Started on prednisone 20 mg BID back on October 22, and the pain went away completely after a few days Also has associated finger numbness of the bilateral finger tips. Sometimes the entire hand will feel like its on fire . Extreme fatigue and malaise, trouble sleeping because of her hand symptoms. Had elevated inflammatory markers when checked by her PCP. No headaches, no temporal tenderness, no scalp tenderness, no jaw claudication, no visual disturbances. PMH HTN Osteoporosis PSH R knee arthoplasty Fam Hx No family history of autoimmune disease Social History Tobacco Use Smoking status: Never Smokeless tobacco: Never Current Outpatient Medications Medication Sig amLODIPine (NORVASC) 5 mg tablet estrogens, conjugated (PREMARIN VAGINAL) Use vaginally. denosumab (PROLIA SUBCUTANEOUS) Inject subcutaneously. No current facility-administered medications for this visit. No flowsheet data found. Health Maintenance: Colonscopy - UTD Mammogram - UTD Review Of Systems: Review of Systems CONSTITUTION: Negative for: Weight loss or gain, Fever. Chills, Night sweats HEENT: Negative for: Nosebleeds, Mouth sores, Trouble swallowing, Dry mouth RESPIRATORY: Negative for: Cough, Shortness of breath, Pain with breathing, Coughing up blood GASTROINTESTINAL: Negative for: Melena, Diarrhea, Abdominal pain, Heartburn, MUSCULOSKELETAL: Positive for: Myalgias Negative for: Arthralgias, Muscle weakness, Joint swelling and Morning Joint Stiffness NEUROLOGICAL: Negative for: Headaches, Numbness, Memory loss, SKIN: Negative for: Rashes, Sun sensitive rashes, Skin color changes, Hair loss, Nail changes EYES: Negative for: Eye pain, Eye redness, Visual disturbance, Eye dryness CARDIOVASCULAR: Negative for: Chest pain, Leg swelling, Arrhythmia, Presyncope GENITOURINARY: Negative for: Dysuria, Hematuria, Ulceration HEMATOLOGIC/LYMPHATIC: Negative for: Swollen glands PHQ9 No flowsheet data found. Reference Values for PHQ9 0 - 4: Minimal Depression 5 - 9: Mild Depression 10 - 14: Moderate Depression 15 - 19: Moderately Severe Depression 20 - 27: Severe Depression Physical Exam: BP 127/71 Pulse 82 Ht 152.4 cm (5') Wt 57.6 kg (127 lb) BMI 24.80 kg/m? Physical Exam Constitutional: Appearance: She is not ill-appearing. HENT: Head: Normocephalic and atraumatic. Mouth/Throat: Mouth: Mucous membranes are moist. Eyes: Extraocular Movements: Extraocular movements intact. Pupils: Pupils are equal, round, and reactive to light. Cardiovascular: Rate and Rhythm: Normal rate and regular rhythm. Heart sounds: No murmur heard. Pulmonary: Effort: Pulmonary effort is normal. Breath sounds: Normal breath sounds. No wheezing. Abdominal: Palpations: Abdomen is soft. Tenderness: There is no abdominal tenderness. Musculoskeletal: Right shoulder: No swelling, deformity or tenderness. Left shoulder: No swelling, deformity or tenderness. Right elbow: No swelling or deformity. Left elbow: No swelling or deformity. Right hand: No swelling or deformity. Left hand: No swelling or deformity. Cervical back: No tenderness or bony tenderness. Thoracic back: No deformity or bony tenderness. Lumbar back: No deformity or bony tenderness. Right hip: No deformity or tenderness. Left hip: No deformity or tenderness. Right knee: No swelling, effusion or crepitus. Left knee: No swelling, effusion or crepitus. Right ankle: No swelling or deformity. Left ankle: No swelling or deformity. Right foot: No swelling or deformity. Left foot: No swelling or deformity. Skin: General: Skin is warm and dry. Neurological: General: No focal deficit present. Mental Status: She is alert and oriented to person, place, and time. Mental status is at baseline. Labs: Imaging: Reviewed Assessment/Plan: M35.3 Polymyalgia rheumatica (HCC) (primary encounter diagnosis) In summary, this is a 76 year old female who presents for evaluation of muscle pain and stiffness in the shoulder and hip girdle who had elevated inflammatory markers and a rapid resolution of symptoms with prednisone therapy that sounds typical of PMR. She does not have any cranial GCA symptoms. Her hand numbness and burning sensation bilaterally is atypical and likely unrelat (more content not included)...[facility] 02-04-2022 Instructions* Patient Instructions* Tres Pedraza MD - 02/04/2022 2:52 PM EDT 2nd floor for Xray and 1st floor for blood work I will call with the lab results Prednisone dosin mg daily for 7 days 12.5 daily mg for 7 days 10 mg daily for 7 days 7.5 mg daily for 7 days Then stay on 5 mg daily I will see you back in 3 months documented in this encounterMer[facility]08-[facility] History of Present illness Narrative* Imtiaz Tilley MD - 02/04/2022 2:07 PM EDT Images from the original note were not included. Rheumatology Office Visit Note Date of Service: February 04, 2022 Reason for Consultation: Concern for PMR Consult Requested By: Cr Ferrari ([facility]) [address] [facility] [id number] HPI: Maddie Ba is a 76 year old female with PMH significant for HTN and osteoporosis on Prolia who presents for evaluation for PMR. End of September 2021 she got her 4th COVID vaccine dose October 2021 - neck, shoulder, knees, and hips were hurting, aching, worst in the morning with stiffness Started on prednisone 20 mg BID back on October 22, and the pain went away completely after a few days Also has associated finger numbness of the bilateral finger tips. Sometimes the entire hand will feel like its on fire . Extreme fatigue and malaise, trouble sleeping because of her hand symptoms. Had elevated inflammatory markers when checked by her PCP. No headaches, no temporal tenderness, no scalp tenderness, no jaw claudication, no visual disturbances. PMH HTN Osteoporosis PSH R knee arthoplasty Fam Hx No family history of autoimmune disease Social History Tobacco Use Smoking status: Never Smokeless tobacco: Never Current Outpatient Medications Medication Sig amLODIPine (NORVASC) 5 mg tablet estrogens, conjugated (PREMARIN VAGINAL) Use vaginally. denosumab (PROLIA SUBCUTANEOUS) Inject subcutaneously. No current facility-administered medications for this visit. No flowsheet data found. Health Maintenance: Colonscopy - UTD Mammogram - UTD Review Of Systems: Review of Systems CONSTITUTION: Negative for: Weight loss or gain, Fever. Chills, Night sweats HEENT: Negative for: Nosebleeds, Mouth sores, Trouble swallowing, Dry mouth RESPIRATORY: Negative for: Cough, Shortness of breath, Pain with breathing, Coughing up blood GASTROINTESTINAL: Negative for: Melena, Diarrhea, Abdominal pain, Heartburn, MUSCULOSKELETAL: Positive for: Myalgias Negative for: Arthralgias, Muscle weakness, Joint swelling and Morning Joint Stiffness NEUROLOGICAL: Negative for: Headaches, Numbness, Memory loss, SKIN: Negative for: Rashes, Sun sensitive rashes, Skin color changes, Hair loss, Nail changes EYES: Negative for: Eye pain, Eye redness, Visual disturbance, Eye dryness CARDIOVASCULAR: Negative for: Chest pain, Leg swelling, Arrhythmia, Presyncope GENITOURINARY: Negative for: Dysuria, Hematuria, Ulceration HEMATOLOGIC/LYMPHATIC: Negative for: Swollen glands PHQ9 No flowsheet data found. Reference Values for PHQ9 0 - 4: Minimal Depression 5 - 9: Mild Depression 10 - 14: Moderate Depression 15 - 19: Moderately Severe Depression 20 - 27: Severe Depression Physical Exam: BP 127/71 Pulse 82 Ht 152.4 cm (5') Wt 57.6 kg (127 lb) BMI 24.80 kg/m Physical Exam Constitutional: Appearance: She is not ill-appearing. HENT: Head: Normocephalic and atraumatic. Mouth/Throat: Mouth: Mucous membranes are moist. Eyes: Extraocular Movements: Extraocular movements intact. Pupils: Pupils are equal, round, and reactive to light. Cardiovascular: Rate and Rhythm: Normal rate and regular rhythm. Heart sounds: No murmur heard. Pulmonary: Effort: Pulmonary effort is normal. Breath sounds: Normal breath sounds. No wheezing. Abdominal: Palpations: Abdomen is soft. Tenderness: There is no abdominal tenderness. Musculoskeletal: Right shoulder: No swelling, deformity or tenderness. Left shoulder: No swelling, deformity or tenderness. Right elbow: No swelling or deformity. Left elbow: No swelling or deformity. Right hand: No swelling or deformity. Left hand: No swelling or deformity. Cervical back: No tenderness or bony tenderness. Thoracic back: No deformity or bony tenderness. Lumbar back: No deformity or bony tenderness. Right hip: No deformity or tenderness. Left hip: No deformity or tenderness. Right knee: No swelling, effusion or crepitus. Left knee: No swelling, effusion or crepitus. Right ankle: No swelling or deformity. Left ankle: No swelling or deformity. Right foot: No swelling or deformity. Left foot: No swelling or deformity. Skin: General: Skin is warm and dry. Neurological: General: No focal deficit present. Mental Status: She is alert and oriented to person, place, and time. Mental status is at baseline. Labs: Imaging: Reviewed Assessment/Plan: M35.3 Polymyalgia rheumatica (HCC) (primary encounter diagnosis) In summary, this is a 76 year old female who presents for evaluation of muscle pain and stiffness in the shoulder and hip girdle who had elevated inflammatory markers and a rapid resolution of symptoms with prednisone therapy that sounds typical of PMR. She does not have any cranial GCA symptoms. Her hand numbness and burning sensation bilaterally is atypical and likely unrelated to the PMR. We will start on moderate dose prednisone 15 mg with a taper by 2.5 mg every week until on 5 mg prednisone and stay at 5 mg. Will see back in 3 months. R20.0, R20.2 Numbness and tingling in both hands Unlikely related to PMR, cervical spine issue vs carpal tunnel? Will get cervical spine XR and willrefer to neuromuscular for evaluation Medications: Prednisone 15 mg x 7 days, 12.5 mg x 7 days, 10 mg x 7 days, 7.5 mg x 7 days then 5 mgdaily Labs: ESR, CRP, B12, Folate Imaging: XR Cervical Spine Consults: Neuromuscular Medicine Follow-up: 3 months Patient seen and discussed with Rheumatology Staff, Dr Jarek Pedraza MD Rheumatology Fellow Department of Rheumatologic and Immunologic Disease Consultation requested by Dr. Ferrari for an opinion regarding PMR. My final recommendations will be communicated back to the requesting physician by way of shared Medical record or letter to requestingphysician via [place] mail. I reviewed the history and physical obtained and documented by the resident/fellow and I personallyparticipated in the guevara components. The following comments revise or confirm relevant guevara elements of resident/fellow's note: History:as given Physical Exam: agree with findings I discussed the case and the plans with the resident/fellow with the following comments: agree withapproach Impression/Plan 76 yo female with symptoms consistent with PMR, discussing diagnosis with patient. No evidence of cranial GCA. Imtiaz Tilley MD Rheumatology Staff [id number] Spent 45 minutes with the patient discussing history and counsleing [facility] NotePatient Education Materials Follows: Poison Monique Dermatitis Poison monique dermatitis is redness and soreness of the skin caused by chemicals in the leaves of the poison monique plant. You may have very bad itching, swelling, a rash, and blisters. What are the causes? ? Touching a poison monique plant. ? Touching something that has the chemical on it. This may include animals or objects that have come in contact with the plant. What increases the risk? ? Going outdoors often in wooded or marshy areas. ? Going outdoors without wearing protective clothing, such as closed shoes, long pants, and a long-sleeved shirt. What are the signs or symptoms? ? Skin redness. ? Very bad itching. ? A rash that often includes bumps and blisters. ? The rash usually appears 48 hours after exposure, if you have been exposed before. ? If this is the first time you have been exposed, the rash may not appear until a week after exposure. ? Swelling. This may occur if the reaction is very bad. Symptoms usually last for 1?2 weeks. The first time you develop this condition, symptoms may last 3?4 weeks. How is this treated? This condition may be treated with: ? Hydrocortisone cream or calamine lotion to relieve itching. ? Oatmeal baths to soothe the skin. ? Medicines, such as mlnv-flj-izfhiue antihistamine tablets. ? Oral steroid medicine for more severe reactions. Follow these instructions at home: Medicines ? Take or apply rzmt-ffi-ktosgyj and prescription medicines only as told by your doctor. ? Use hydrocortisone cream or calamine lotion as needed to help with itching. General instructions ? Do not scratch or rub your skin. ? Put a cold, wet cloth (cold compress) on the affected areas or take baths in cool water. This will help with itching. ? Avoid hot baths and showers. ? Take oatmeal baths as needed. Use colloidal oatmeal. You can get this at a pharmacy or grocery store. Follow the instructions on the package. ? While you have the rash, wash your clothes right after you wear them. ? Keep all follow-up visits as told by your health care provider. This is important. How is this prevented? ? Know what poison monique looks like, so you can avoid it. ? This plant has three leaves with flowering branches on a single stem. ? The leaves are glossy. ? The leaves have uneven edges that come to a point at the front. ? If you touch poison monique, wash your skin with soap and water right away. Be sure to wash under your fingernails. ? When hiking or camping, wear long pants, a long-sleeved shirt, tall socks, and hiking boots. You can also use a lotion on your skin that helps to prevent contact with poison monique. ? If you think that your clothes or outdoor gear came in contact with poison monique, rinse them off with a garden hose before you bring them inside your house. ? When doing yard work or gardening, wear gloves, long sleeves, long pants, and boots. Wash your garden tools and gloves if they come in contact with poison monique. ? If you think that your pet has come into contact with poison monique, wash him or her with pet shampoo and water. Make sure to wear gloves while washing your pet. Contact a doctor if: ? You have open sores in the rash area. ? You have more redness, swelling, or pain in the rash area. ? You have redness that spreads beyond the rash area. ? You have fluid, blood, or pus coming from the rash area. ? You have a fever. ? You have a rash over a large area of your body. ? You have a rash on your eyes, mouth, or genitals. ? Your rash does not get better after a few weeks. Get help right away if: ? Your face swells or your eyes swell shut. ? You have trouble breathing. ? You have trouble swallowing. These symptoms may be an emergency. Do not wait to see if the symptoms will go away. Get medical help right away. Call your local emergency services (911 in the [place] Do not drive yourself to the hospital. Summary ? Poison monique dermatitis is redness and soreness of the skin caused by chemicals in the leaves of the poison monique plant. ? You may have skin redness, very bad itching, swelling, and a rash. ? Do not scratch or rub your skin. ? Take or apply rrxv-dmh-jfzuxri and prescription medicines only as told by your doctor. This information is not intended to replace advice given to you by your health care provider. Make sure you discuss any questions you have with your health care provider. Document Revised: 09/30/2019 Document Reviewed: 06/03/2019 [employer] Patient Education ? 2020 [employer].[facility] [id number] Note HISTORY: Bone density screening COMPARISON: None. PROCEDURE: Imaging of the lumbar spine and bilateral hips was obtained for bone density evaluation. FINDINGS: REGION BMD (g/cm??) YOUNG ADULT T-SCORE AGE-MATCHED Z-SCORE LEFT NECK 0.570 -2.5 -0.4 RIGHT NECK 0.643 -1.9 3.2 LUMBAR 1.117 2.6 3.0 The mean BMD and corresponding T-score listed above for the lumbar spine indicates: Normal Bone Mass and places the patient at no significant risk for fracture. This information can serve as a baseline with which to compare future studies. Recommend follow-up exam in 2 years, sooner as clinically necessary. The mean BMD and corresponding T-score for the femoral necks listed above indicate: Osteoporosis and thus places the patient at a significant increased risk for fracture. Recommend follow-up exam in 1 year, sooner as clinically necessary. Comment: The T-score is the primary focus of the interpretation of a patient???s bone mineral density measurement. The T-score is the number of standard deviations and individual is above or below the mean value for a young female having normal bone mass. The WHO defines osteoporosis based on the T-score value: +1.0 to -0.9 : Normal bone mass -1.0 to -2.5 : Osteopenia and thus may be at future risk of fracture. -2.6 to -5.0 : Osteoporosis and at significantly increased risk of fracture. IMPRESSION: Normal bone mass of the lumbar spine. There is osteoporosis of the bilateral femoral necks. Report reported and signed by WHIT TILLMAN on 05/30/2021 1438[facility] Diagnosis Polymyalgia rheumatica (HCC)- Primary Polymyalgia rheumatica Numbness and tingling in both hands [facility] Diagnosis Numbness and tingling in both hands [facility] Diagnosis Polymyalgia rheumatica (HCC)- Primary Polymyalgia rheumatica Carpal tunnel syndrome, bilateral Carpal tunnel syndrome rn long term care current use of systemic steroids Encounter for long-term (current) use of steroids Osteoporosis, unspecified osteoporosis type, unspecified pathological fracture presence [facility] noteNo InformationNort ScaleOut Software Other Evaluation note* Diagnosis Primary osteoarthritis of left knee- Primary documented in this encounter [facility] Work Phone: Evaluation noteNo assessment information available [facility] Work Phone: Evaluation note* Diagnosis Unilateral primary osteoarthritis, left knee- Primary Unilateral primary osteoarthritis, left knee Unilateral primary osteoarthritis, left knee documented in this encounter [facility] Work Phone: Evaluation note* Diagnosis Unilateral primary osteoarthritis, left knee- Primary Unilateral primary osteoarthritis, left knee Unilateral primary osteoarthritis, left knee documented in this encounter [facility] Work Phone: Evaluation note* Diagnosis Unilateral primary osteoarthritis, left knee- Primary Unilateral primary osteoarthritis, left knee S/P TKR (total knee replacement) using cement, left Arthritis of left knee documented in this encounter [facility] Work Phone: Evaluation note* Diagnosis Aftercare following left knee joint replacement surgery documented in this encounter [facility] Work Phone: Evaluation note* Diagnosis Aftercare following left knee joint replacement surgery documented in this encounter [facility] Work Phone: Evaluation note* Diagnosis Onset Date Resolution Status Hypertension acute Osteoporosis acute Primary osteoarthritis of knees, bilateral acute Medicare annual wellness visit, subsequent noneactive Screening mammogram for breast cancer noneactive [facility] Work Phone: History general Narrative - Reported* Type Description Date Medical History hypertension Medical History Carpal tunnel syndrome, bilatera l Medical History Hyperlipidemia, group A Medical History Polymyalgia rheumatica Medical History Vitamin D deficiency Medical History Myalgia Surgical History right knee arthroplasty Surgical History hysterectomy Surgical History COLONOSCOPY 2005,2016 Hospitalization History SEE SURGICAL HX [facility] [employer] Other Reason for referral (narrative)* Outpatient Procedure (Routine) - Authorized Specialty Diagnoses / Procedures Referred By Contact Referred To Contact [facility] Diagnoses Numbness and tingling in both hands Procedures EMG(NEURO/NI) NERVE CONDUCTION STUDIES 9-[place] [address] [place] [address] [facility] [address] [place] [address] Referral ID Status Reason Start Date Expiration Date Visits Requested Visits Authorized [id number] Authorized Auto-Generat ed Referral 03/05/2022 03/05/2023 1 1 [facility] for referral (narrative)* Reason Referral for severe OA of the left knee. Dr. Thao Justin at . 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 She is being referred for evaluation for TKA. Clinical Notes Include last office note and XR reports [employer] Other Reason for referral (narrative)* Consultation (Routine) - Pending Review Specialty Diagnoses / Procedures Referred By Sammie kent Referred To Contact Physical Therapy Diagnoses S/P TKR (total knee replacement) using cement, left Brandon Donis PA-C [address] [place] [address] [place] [address] Referral ID Status Reason Start Date Expiration Date Visits Requested Visits Authorized [id number] Pending Review Specialty Services Required 10/07/2023 10/06/2024 1 1 * Home Health (Routine) - Pending Review Specialty Diagnoses / Procedures Referred By Sammie kent Referred To Contact Home Health Services Diagnoses S/P TKR (total knee replacement) using cement, Brandon Galvez PA-C [address] [place] [address] [facility] [address] [place] [address] Referral ID Status Reason Start Date Expiration Date Visits Requested Visits Authorized [id number] Pending Review Specialty Services Required 10/07/2023 10/06/[phone] [facility] Work Phone: Summary Purpose Family History Relationship Condition Age at Onset Recorded Date/T estrella Not Specified Heart disease Unknown Relationship Condition Age at Onset Recorded Date/T estrella mother Heart disease Unknown Advance Directives Documents on File Type Date Recorded Patient Learning Disabled Teacher Expl anation Healthcare Power of Atty 03/02/2017 Living Will 03/02/2017 Advance Directive Response Recorded Date/ Time Advance Directives No April 27, 2017 12:26pm Date Activated Date Inactivated Comments 10/07/2023 11:41 AM Question Answer Comments Plan of Care: Code Status Discussion Completed Decision Maker: Provider Rationale: Patient condition does not warra nt a discussion Reason for Referral Specialty Diagnoses / Procedures Referred By Contac t Referred To Contact Diagnoses Numbness and tingling in both hands Procedures CONSULT TO NEUROMUSCULAR MEDIC OFFICE/OUTPATIENT [facility] 60-74 MINUTES Imtiaz Tilley MD [address] [place] [address] Referral ID Status Reason Start Date Expiration Date Visits Requested Visits Authorized [id number] Pending Review PCP Requested Referral 02/04/2022 02/04/2023 1 1 Specialty Diagnoses / Procedures Referred By Contac t Referred To Contact XR IMAGING Diagnoses Polymyalgia rheumatica (HCC) Numbness and tingling in both hands Procedures XR CERVICAL 2V FLEX/EXT RADEX SPINE CERVICAL 2 OR 3 VIEWS Imtiaz Tilley MD [address] [place] [address] Xr Imaging Referral ID Status Reason Start Date Expiration Date V isits Requested Visits Authorized [id number] Closed Auto-Generate d Referral 02/04/2022 03/06/2023 1 1 Specialty Diagnoses / Procedures Referred By Contac t Referred To Contact Orthopaedic Surgery / Orthopedic Surgery Diagnoses Primary osteoarthritis of left knee Procedures L Inj/[place]: [place] [address] [place] [address] Referral ID Status Reason Start Date Expiration Date V isits Requested Visits Authorized [id number] Pending Review 06/11/2023 06/10/2024 1 1 Specialty Diagnoses / Procedures Referred By Contac t Referred To Contact Radiology Diagnoses Unilateral primary osteoarthritis, left knee Procedures XR lower extremity leg lengevaluation Brandon Donis PA-Carlos [address] [place] [address] Referral ID Status Reason Start Date Expiration Date Visits Requested Visits Authorized [id number] Authorized Perform Procedure 08/03/2023 08/02/2024 1 1 Specialty Diagnoses / Procedures Referred By Contac t Referred To Contact Radiology Diagnoses Unilateral primary osteoarthritis, left knee Procedures XR knee left 3 views Brandon Donis PA-C [address] [place] [address] Referral ID Status Reason Start Date Expiration Date Visits Requested Visits Authorized [id number] Authorized Perform Procedure 08/03/2023 08/02/2024 1 1 Specialty Diagnoses / Procedures Referred By Contac t Referred To Contact Radiology Diagnoses Aftercare following left knee joint replacement surgery Procedures XR knee left 3 views Brandon Donis PA-C [address] [place] [address] Referral ID Status Reason Start Date Expiration Date Visits Requested Visits Authorized [id number] Authorized Perform Procedure 11/17/2023 11/16/2024 1 1 Chief Complaint FUV left knee pain Chief Complaint and Reason for Visit Chief Complaint R30.0 Chief Complaint wellness/Provila lul t Reason for Visit Hypertension Osteoporosis Primary osteoarthritis of knees, bilateral Medicare annual wellness visit, subsequent Screening mammogram for breast cancer Additional Source Comments INFORMATION SOURCE (unrecogn ized section and content) DATE CREATED AUTHOR 05/31/2021 [facility] dical Specialist DATE CREATED AUTHOR AUTHOR'S ORGANIZ ATION 10/24/2021 [facility] DATE CREATED AUTHOR AUTHOR'S ORGANIZ ATION [facility] [facility] DATE CREATED AUTHOR AUTHOR'S ORGANIZ ATION 10/10/2022 [facility] DATE CREATED AUTHOR AUTHOR'S ORGANIZ ATION 03/31/2023 [employer] DATE CREATED AUTHOR AUTHOR'S ORGANIZ ATION 06/08/2023 [facility] dical Specialists EPIC DATE CREATED AUTHOR AUTHOR'S ORGANIZ ATION 09/23/2023 [facility] dical Specialists EPIC DATE CREATED AUTHOR AUTHOR'S ORGANIZ ATION 10/02/2023 [facility] DATE CREATED AUTHOR AUTHOR'S ORGANIZ ATION 10/06/2023 [facility] y[facility] DATE CREATED AUTHOR AUTHOR'S ORGANIZ ATION 10/11/2023 [facility] DATE CREATED AUTHOR AUTHOR'S ORGANIZ ATION 01/07/2024 [facility] Source Comments (unrecognize d section and content) In the event this informatio n is protected by the Federal Confidentiality of Alcohol and Drug Abuse Patient Records regulations: The Federal rules restrict any use of the information to criminally investigate or prosecute any alcohol or drug abuse patient.[facility] Hospital[facility] the event this information is protected by the Federal Confidentiality of Alcohol and Drug Abuse Patient Records regulations: The Federal rules restrict any use of the information to criminally investigate or prosecute any alcohol or drug abuse patient.[facility] HospitalIn the event this information is protected by the Federal Confidentiality of Alcohol and Drug Abuse Patient Records regulations: The Federal rules restrict any use of the information to criminally investigate or prosecute any alcohol or drug abuse patient.[facility] HospitalIn the event this information is protected by the Federal Confidentiality of Alcohol and Drug Abuse Patient Records regulations: The Federal rules restrict any use of the information to criminally investigate or prosecute any alcohol or drug abuse patient.[facility] HospitalIn the event this information is protected by the Federal Confidentiality of Alcohol and Drug Abuse Patient Records regulations: The Federal rules restrict any use of the information to criminally investigate or prosecute any alcohol or drug abuse patient.[facility] Care Teams (unrecognized sec tion and content) Experience Specialist Relationship Specialty Start Date End Date Cr Ferrari, DO [address] [place] [address] Referring Internal Medicine 01/09/22 Experience Specialist Relationship Specialty Start Date End Date Cr Ferrari, DO [address] [place] [address] Referring Internal Medicine 01/09/22 Experience Specialist Relationship Specialty Start Date End Date Cr Ferrari, DO [address] [place] [address] Referring Internal Medicine 01/09/22 Experience Specialist Relationship Specialty Start Date End Date Cr Ferrari, DO [address] [facility] [place] [address] Referring Internal Medicine 01/09/22 Experience Specialist Relationship Specialty Start Date End Date Cr Ferrari, DO [address] [place], [place] [id number] Referring Internal Medicine 01/09/22 Experience Specialist Relationship Specialty Start Date End Date Vonda Cr Mcdaniel PCP - General 02/21/16 Team Status: Active Member Role Status Dates Cr Ferrari DO Primary Care Provider Active Team Status: Inactive Member Role Status Dates Cr Ferrari DO Primary Care Provider Active Start: September 23, 2023 End: September 23, 2023 Brennan Melissa MD Attending Provider Active Star t: September 23, 2023 End: September 23, 2023 Experience Specialist Relationship Specialty Start Date End Date Cr Ferrari MattDO [address] [facility] [place] [address] [place] [address] PCP - General Internal Medicine 09/18/23 Katelynn Coker, RN Registered Nurse Orthopaedic Surgery 09/29/23 Experience Specialist Relationship Specialty Start Date End Date VondaCrDO [address] [facility] [place] [address] [place] [address] PCP - General Internal Medicine 09/18/23 Katelynn Coker, RN Registered Nurse Orthopaedic Surgery 09/29/23 Experience Specialist Relationship Specialty Start Date End Date Cr Ferrari DO [address] [facility] [place] [address] [place] [address] PCP - General Internal Medicine 09/18/23 Katelynn Coker, MEDHAT Registered Nurse Orthopaedic Surgery 09/29/23 Experience Specialist Relationship Specialty Start Date End Date Cr Ferrari DO PCP - General Internal Medicine 09/18/23 Katelynn Coker RN Registered Nurse Orthopaedic Surgery 09/29/23 Experience Specialist Relationship Specialty Start Date End Date Cr Ferrari DO PCP - General Internal Medicine 09/18/23 Katelynn Coker RN Registered Nurse Orthopaedic Surgery 09/29/23 Team Status: Inactive Member Role Status Dates Cr Ferrari DO Primary Care Provide r, Attending Provider Active Start: January 15, 2024 End: January 15, 2024 Reason for Visit (unrecogniz ed section and content) Reason Comments New Patient Specialty Diagnoses / Procedures Referred By Contact Referred To Contact Neurology / [facility] Diagnoses Numbness and tingling in both hands Procedures CONSULT TO NEUROMUSCULAR MEDIC OFFICE/OUTPATIENT NEW HIGH MDM 60-74 MINUTES REFERRAL TO [facility]ANCIAL COUNSELOR Imtiaz Tilley MD [address] [place] [address] [place] [address] [place] [address] Referral ID Status Reason Start Date Expiration Date Visits Requested Visits Authorized [id number] Pending Review PCP Requested Referral Financial Clearance Required - [employer] Payor 02/04/2022 02/04/2023 1 1 Reason Comments Results Reason Comments Injections Specialty Diagnoses / Procedures Referred By Contac t Referred To Contact Radiology Diagnoses Unilateral primary osteoarthritis, left knee Procedures XR lower extremity leg lengevaluation Brandon Donis, CHAD [address] [place] [address] Referral ID Status Reason Start Date Expiration Date Visits Requested Visits Authorized [id number] Authorized Perform Procedure 08/03/2023 08/02/2024 1 1 Specialty Diagnoses / Procedures Referred By Contac t Referred To Contact Radiology Diagnoses Unilateral primary osteoarthritis, left knee Procedures XR knee left 3 views Brandon Donis PA-C [address] [place] [address] Referral ID Status Reason Start Date Expiration Date Visits Requested Visits Authorized [id number] Authorized Perform Procedure 08/03/2023 08/02/2024 1 1 Specialty Diagnoses / Procedures Referred By Contac t Referred To Contact Diagnoses Unilateral primary osteoarthritis, left knee Unilateral primary osteoarthritis, left knee [M17.12] Procedures MT ARTHRP KNE CONDYLE&PLATU MEDIAL&LAT COMPARTMENTS Knee Replacement Total Cement Unilat ( DePuy Attune Knee, Pineapple [place] ) [place] [address] [facility] [place] [address] [place] [address] [place] [address] Referral ID Status Reason Start Date Expiration Date Visits Re quested Visits Authorized [id number] 1 1 Specialty Diagnoses / Procedures Referred By Contac t Referred To Contact Radiology Diagnoses Aftercare following left knee joint replacement surgery Procedures XR knee left 3 views Brandon Donis PA-C [address] [place] [address] Referral ID Status Reason Start Date Expiration Date Visits Requested Visits Authorized [id number] Authorized Perform Procedure 11/17/2023 11/16/2024 1 1 Goals (unrecognized section and content) Goals may be documented in a n alternate section Scheduled Active and Recently Administ ered Medications (unrecognized section and content) Medication Order 10/06/2023 10/07/2023 10/08/2023 acetaminophen (Tylenol) tablet 975 mg (COMPLETED) 975 mg, oral, Once, On Thu10/07/23 at 0645, For 1 dose, Preprocedure, PREOP, If ordered PRN for pain, nurse is permitted to administer this medication for higher pain scores based on patient preference? Yes 0492 (Given - Provider: Genia Brian RN) amLODIPine (Norvasc) tablet 5 mg 5 mg, oral, Daily, First dose on Nae 10/08/23 at 0900, Phase II/On Unit, HOLD IF SBP <115 0814 (Given - Provid er: Danielle Liang RN) aspirin EC tablet 81 mg 81 mg, oral, 2 times daily, First dose on Thu10/07/23 at 2100, Phase II/On Unit, Do not crush, chew, or split. 2117 (Given - Provider: Steff Cardenas RN) 0814 (Given - Provider: Danielle Liang RN)2100 (Due) ceFAZolin in dextrose (iso-os) (Ancef) IVPB 2 g (COMPLETED) 2 g, intravenous, Administer over 30 Minutes, Once, On Thu10/07/23 at 0645, For 1 dose, Preprocedure, premix bag, Dosing of this medication varies based on severity of illness. Does this patient have sepsis or concern for sepsis (probable or documented infection plus systemic manifestations of infection)? No, Suspected Indication (Select all that apply): Surgical Prophylaxis 0842 (Given - Provider: FUNMI Holder)1017 (Anesthesia Volume Adjustment - Provider: FUNMI Holder) ceFAZolin in dextrose (iso-os) (Ancef) IVPB 2 g (COMPLETED) 2 g, intravenous, Administer over 30 Minutes, Every 8 hours, First dose on Thu10/07/23 at 1700, For 2 doses, Phase II/On Unit, Start 8 hours after pre-op dose given. premix bag, Dosing of this medication varies based on severity of illness. Does this patient have sepsis or concern for sepsis (probable or documented infection plus systemic manifestations of infection)? No, Suspected Indication (Select all that apply): Surgical Prophylaxis 1704 (New Bag - Provider: Ariadna Barba RN)1734 (Stopped - Provider: Ariadna Barba RN) 0034 (New Bag - Provider: Steff Cardenas RN)0104 (Stopped - Provider: Steff Cardenas RN) docusate sodium (Colace) capsule 100 mg 100 mg, oral, 2 times daily, First dose on Thu10/07/23 at 2100, Phase II/On Unit, Bowel Regimen - for prevention of constipation Hold for loose stools 2117 (Given - Provider: Steff Cardenas RN) 0815 (Given - Provider: Danielle Liang RN)2100 (Due) ketorolac (Toradol) injection 15 mg (COMPLETED) 15 mg, intravenous, Every 6 hours, First dose on Thu10/07/23 at 1200, For 4 doses, Phase II/On Unit, Do not administer within 6 hours of other NSAIDs (such as ibuprofen or naproxen). 1221 (Given - Provider: Ariadna Barba RN)1842 (Given - Provider: Ariadna Barba RN) 0034 (Given - Provider: Steff Cardenas RN)0638 (Given - Provider: Steff Cardenas RN) meloxicam (Mobic) tablet 7.5 mg (COMPLETED) 7.5 mg, oral, Once, On Thu10/07/23 at 0645, For 1 dose, Preprocedure, PREOP, If ordered PRN for pain, nurse is permitted to administer this medication for higher pain scores based on patient preference? Yes 0659 (Given - Provider: Genia Brian RN) midazolam (Versed) injection 2 mg (COMPLETED) 2 mg, intravenous, Once, On Thu10/07/23 at 0730, For 1 dose, Preprocedure 0717 (Given - Provider: Maddison Saldaña RN) oxyCODONE ER (OxyCONTIN) 12 hr tablet 10 mg (COMPLETED) 10 mg, oral, Once, On Thu10/07/23 at 0645, For 1 dose, Preprocedure, Do not crush, chew, or split. 0713 (Given - Provider: Genia Brian RN) pantoprazole (ProtoNix) EC tablet 40 mg 40 mg, oral, Daily before breakfast, First dose on Thu10/08/23 at 0700, For 21 doses, Phase II/On Unit, Do not crush, chew, or split. 0638 (Given - Provid er: Steff Cardenas RN) polyethylene glycol (Glycolax, Miralax) packet 17 g 17 g, oral, Daily, First dose on Thu10/08/23 at 0900, Phase II/On Unit, Bowel Regimen - for prevention of constipation. 0815 (Given - Provid er: Danielle Liang RN) povidone-iodine 5 % kit kit (COMPLETED) Topical, Once, On Thu10/07/23 at 0645, For 1 dose, Preprocedure, Apply to both nostrils 1 hour prior to procedure. 0659 (Given - Provider: Genia Brian RN) pregabalin (Lyrica) capsule 75 mg (COMPLETED) 75 mg, oral, Once, On Thu10/07/23 at 0645, For 1 dose, Preprocedure, PREOP 0659 (Given - Provider: Genia Brian RN) scopolamine (Transderm-Scop) patch 1 patch 1 patch, transdermal, Administer over 72 Hours, Every 72 hours, First dose on Thu10/07/23 at 0645, For 1 dose, Preprocedure, PREOP Apply to hairless area of skin behind the ear. 0659 (Medication Applied - Provider: Genia Brian RN) tranexamic acid (Lysteda) tablet 1,950 mg (COMPLETED) 1,950 mg, oral, Once, On Thu10/07/23 at 1600, For 1 dose, Recovery & On Unit, First dose administered 6 hours post procedure. Do not crush, chew, or split., Tranexamic Acid Indication: Surgical Prophylaxis: Orthopedic 1610 (Given - Provider: Ariadna Barba RN) Continuous Medication Order 10/06/2023 10/07/2023 10/08/2023 lactated Ringer's infusion (CANCELED) 75 mL/hr, intravenous, Continuous, Starting on Thu10/07/23 at 0645, Preprocedure 0659 (New Bag - Provider: Kristina Brian RN)0832 (Continued by Anesthesia - Provider: FUNMI Holder)1017 (Anesthesia Volume Adjustment - Provider: FUNMI Holder)1148 (Stopped - Provider: Ariadna Barba RN) lactated Ringer's infusion 100 mL/hr, intravenous, Continuous, Starting on Thu10/07/23 at 1200, For 24 hours, Phase II/On Unit 1221 (New Bag - Provider: Ariadna Barba RN)2046 (Rate/Dose Verify - Provider: Steff Cardenas RN)2219 (Stopped - Provider: Steff Cardenas RN) oxygen (O2) therapy 2 L/min, inhalation, Continuous, Starting on Thu10/07/23 at 1200, Phase II/On Unit, Titrate supplemental oxygen to maintain oxygen saturation greater than or equal to 92%., Device: Nasal Cannula, Rate in liters per minute: 2 LPM, Keep O2 Sat Above: 92% 1303 (Stopped - Provider: Mary Kirkland, MANAGER USER EXPERIENCE) PRN Medication Order 10/06/2023 10/07/2023 10/08/2023 acetaminophen (Tylenol) tablet 650 mg 650 mg, oral, Every 6 hours PRN, pain mild (1-3), first line, Starting on Thu10/07/23 at 1142, Phase II/On Unit, If ordered PRN for pain, nurse is permitted to administer this medication for higher pain scores based on patient preference? Yes alum-mag hydroxide-simeth (Mylanta) 200-200-20 mg/5 mL oral suspension 20 mL 20 mL, oral, Every 4 hours PRN, indigestion, heartburn, Starting on Thu10/07/23 at 1941 benzocaine-menthol (Cepastat Sore Throat) 15-3.6 mg lozenge 1 lozenge 1 lozenge, Mouth/Throat, Every 4 hours PRN, sore throat, Starting on Thu10/07/23 at 1142, Phase II/On Unit bisacodyl (Dulcolax) EC tablet 10 mg 10 mg, oral, Daily PRN, constipation, first line, Starting on Thu10/07/23 at 1142, Phase II/On Unit, 1st line for treatment of constipation - contact provider if no bowel movement in past 48 hours. Do not crush, chew, or split. bisacodyl (Dulcolax) suppository 10 mg 10 mg, rectal, Daily PRN, constipation, second line, Starting on Thu10/07/23 at 1142, Phase II/On Unit, 2nd line for treatment of constipation - contact provider if no bowel movement in past 48 hours. cyclobenzaprine (Flexeril) tablet 5 mg 5 mg, oral, 3 times daily PRN, muscle spasms, Starting on Thu10/07/23 at 1142, Phase II/On Unit, Indications: muscle spasm diphenhydrAMINE (BENADryl) injection 12.5 mg 12.5 mg, intravenous, Every 6 hours PRN, itching, Starting on Thu10/07/23 at 1142, Phase II/On Unit fentaNYL PF (Sublimaze) injection 50 mcg (COMPLETED) 50 mcg, intravenous, Once as needed, pain for/from pre-op block, Starting on Thu10/07/23 at 0707, For 1 dose, Preprocedure 0718 (Given - Provider: Maddison Saldaña RN) HYDROmorphone (Dilaudid) injection 0.5 mg 0.5 mg, intravenous, Every 2 hour PRN, pain breakthrough, Starting on Thu10/07/23 at 1142, Phase II/On Unit lubricating eye drops ophthalmic solution 1 drop 1 drop, Both Eyes, As needed, dry eyes, Starting on Thu10/07/23 at 1941 melatonin tablet 3 mg 3 mg, oral, Nightly PRN, sleep, Starting on Thu10/07/23 at 1941 metoclopramide (Reglan) injection 10 mg(Linked Group 1) 10 mg, intravenous, Every 6 hours PRN, nausea/vomiting, second line, Starting on Thu10/07/23 at 1142, Phase II/On Unit, Give IV if patient is unable to take orally. metoclopramide (Reglan) tablet 10 mg(Linked Group 1) 10 mg, oral, Every 6 hours PRN, nausea/vomiting, 2nd line, Starting on Thu10/07/23 at 1142, Phase II/On Unit, 2nd Line. If inadequate response within 60 minutes, proceed to next-line agent or contact provider if no further options ordered. naloxone (Narcan) injection 0.2 mg 0.2 mg, intravenous, Every 5 min PRN, respiratory depression, Starting on Thu10/07/23 at 1142, Phase II/On Unit, If respiratory rate is less than 8 breaths/minute or patient is difficult to arouse stop any narcotics and contact physician. Administer slow IV push. Repeat as ordered until patient's respiratory rate is greater than 12 breaths/minute. ondansetron (Zofran) injection 4 mg(Linked Group 2) 4 mg, intravenous, Every 8 hours PRN, nausea/vomiting, first line, Starting on Thu10/07/23 at 1142, Phase II/On Unit, 1st Line. Give IV if patient is unable to take orally. If inadequate response within 60 minutes, proceed to next-line agent for same PRN reason or contact provider if no further options ordered. When administering via IV Push, administer over 3-5 minutes. ondansetron ODT (Zofran-ODT) disintegrating tablet 4 mg(Linked Group 2) 4 mg, oral, Every 8 hours PRN, nausea/vomiting, first line, Starting on Thu10/07/23 at 1142, Phase II/On Unit, 1st Line. Use oral route first, if possible. If inadequate response within 60 minutes, proceed to next-line agent for same PRN reason or contact provider if no further options ordered. oxyCODONE (Roxicodone) immediate release tablet 2.5 mg 2.5 mg, oral, Every 4 hours PRN, pain moderate (4-6), first line, Starting on Thu10/07/23 at 1608, Phase II/On Unit, If ordered PRN for pain, nurse is permitted to administer this medication for higher pain scores based on patient preference? Yes oxyCODONE (Roxicodone) immediate release tablet 5 mg 5 mg, oral, Every 4 hours PRN, pain severe (7-10), first line, Starting on Thu10/07/23 at 1607, Phase II/On Unit, If ordered PRN for pain, nurse is permitted to administer this medication for higher pain scores based on patient preference? Yes 1227 (Given - Provid er: Danielle Liang RN) ymioladdfhq-cuzavtzdeuy-qxub idine-ketorolac 2.46-0.005- 0.0008-0.3mg/mL periarticular syringe (CANCELED) As needed, Starting on Thu10/07/23 at 0950, Intraprocedure 0950 (Given - Provider: Thao Justin MD) simethicone (Mylicon) chewable tablet 80 mg 80 mg, oral, 4 times daily PRN, flatulence, Starting on Thu10/07/23 at 1941 sodium chloride ([place]) 0.65 % nasal spray 1 spray 1 spray, Each Nostril, As needed, congestion, Starting on Thu10/07/23 at 1941 Linked Groups Order Group 1: metoclopramide (Reglan) tablet 10 mgJump to med 10 mg, oral, Every 6 hours PRN, nausea/vomiting, 2nd line, Starting on Thu10/07/23 at 1142, Phase II/On Unit, 2nd Line. If inadequate response within 60 minutes, proceed to next-line agent or contact provider if no further options ordered. Or metoclopramide (Reglan) injection 10 mgJump to med 10 mg, intravenous, Every 6 hours PRN, nausea/vomiting, second line, Starting on Thu10/07/23 at 1142, Phase II/On Unit, Give IV if patient is unable to take orally. Group 2: ondansetron ODT (Zofran-ODT) disintegrating tablet 4 mgJump to med 4 mg, oral, Every 8 hours PRN, nausea/vomiting, first line, Starting on Thu10/07/23 at 1142, Phase II/On Unit, 1st Line. Use oral route first, if possible. If inadequate response within 60 minutes, proceed to next-line agent for same PRN reason or contact provider if no further options ordered. Or ondansetron (Zofran) injection 4 mgJump to med 4 mg, intravenous, Every 8 hours PRN, nausea/vomiting, first line, Starting on Thu10/07/23 at 1142, Phase II/On Unit, 1st Line. Give IV if patient is unable to take orally. If inadequate response within 60 minutes, proceed to next-line agent for same PRN reason or contact provider if no further options ordered. When administering via IV Push, administer over 3-5 minutes. FOR RECORDS PERTAINING TO PATIENTS WHO ARE OR HAVE BEEN ENROLLED IN A CHEMICAL DEPENDENCY/SUBSTANCEABUSE PROGRAM, SOME INFORMATION MAY BE OMITTED. This clinical summary was aggregated from multiple sources. Caution should be exercised in using it in the provision of clinical care. This summary normalizes information from multiple sources, and as a consequence, information in this document may materially change the coding, format and clinical context of patient data. In addition, data may be omitted in some cases. CLINICAL DECISIONS SHOULD BE BASED ON THE PRIMARY CLINICAL RECORDS. [employer] provides no warranty or guarantee of the accuracy or completeness of information in this document.
[2024-01-21 09:31] LABS: Basophils Percent Auto 0.5 % (0.2-2.0); Eosinophils Absolute Auto 0.2 10^3/uL (0.0-0.7); Eosinophils Percent Auto 2.7 % (0.9-7.0); Hematocrit 38.6 % (36.0-48.0); Hemoglobin 12.4 g/dL (12.0-16.0); Immature Granulocytes Abs Auto 0.01 10^3/uL (0.00-0.03); Immature Granulocytes Pct Auto 0.2 % (0.0-0.5); Lymphocytes Absolute Auto 1.9 10^3/uL (1.2-3.8); Lymphocytes Percent Auto 32.2 % (20.5-60.0); Mean Corpuscular HGB Conc 32.1 g/dL (29.9-35.2); Mean Corpuscular Hemoglobin 29.9 pg (26.7-34.0); Mean Platelet Volume 10.3 fL (9.5-13.5); Monocytes Absolute Auto 0.4 10^3/uL (0.3-0.8); Monocytes Percent Auto 7.4 % (1.7-12.0); Neutrophils Absolute Auto 3.3 10^3/uL (1.4-6.5); Platelet Count 208 10^3/uL (150-450); Red Blood Count 4.15 10^6/uL (4.20-5.40); Red Cell Distribution Width 13.2 % (11.0-15.0); White Blood Count 5.8 10^3/uL (4.0-11.0)
--- NOTE | 2024-01-21 09:50 | XR_ITS ---
The [address] [address] Patient Name: CHRIS LEVY MRN: [id number] date: 1945 Sex: F Assigned Patient Location: MRI Current Patient Location: Accession/Order Number: [id number] Exam Date: 01/21/2024 09:55 Report Date: 01/22/2024 04:26 At the request of: NEVA FERRARI Procedure: XR shoulder RT min 2V PROCEDURE: XR shoulder RT min 2V HISTORY: Right Shoulder Pain since falling a couple weeks ago COMPARISON: None. FINDINGS: BONES:Fracture of the lateral right seventh rib with displacement one full bone width. Unremarkable acromioclavicular and glenohumeral joints. No fracture of the clavicle, scapula, or humerus. SOFT TISSUES:No visible soft tissue swelling. EFFUSION:None visible. OTHER: Negative. XR/XR shoulder RT min 2V IMPRESSION: 1. No acute bone abnormality of the shoulder or significant degenerative joint disease. 2. Displaced fracture of right seventh rib; acute versus chronic. Correlate with patient history and pain in this area. No comparison studies. Electronically authenticated by: THAO BLANTON Date: 01/22/2024 04:26
--- NOTE | 2024-01-21 09:50 | MR_ITS ---
The [place] [id number] Patient Name: CHRIS LEVY MRN: [id number] date: 1945 Sex: F Assigned Patient Location: MRI Current Patient Location: MRI Accession/Order Number: [id number] Exam Date: 01/21/2024 10:56 Report Date: 01/21/2024 13:27 At the request of: NEVA FERRARI Procedure: MR head/brain wo con MR head/brain wo con, 01/21/2024 10:56 AM EDT INDICATION: Mild Cognitive Impairment COMPARISON: There is no appropriate prior study for comparison. TECHNIQUE: Multiplanar, multisequential MRI images of brain were obtained without injection of contrast. FINDINGS: The cerebral sulci as well as ventricular system are enlarged consistent with moderate ex vacuo cerebral volume loss. There is no restricted diffusion. Hyperintensities on T2 and FLAIR images in the rapp radiata and centrum semiovale with sparing of U fibers are nonspecific, statistically most likely consistent with moderate microvascular ischemic changes. There is no intracranial mass, mass effect, midline shift, intra or extra-axial fluid collection or large hemorrhage. Normal flow-void in the intracranial vessels is noted. There is a retention cyst within the right maxillary sinus. The visualized portions of orbits, mastoid air cells as well as remainder of paranasal sinuses are unremarkable. MR/MR head/brain wo con IMPRESSION: No acute intracranial process is noted. Moderate microvascular ischemic changes. No finding to suggest a typical neurodegenerative process. Electronically authenticated by: CLAUDIA JIMENEZ Date: 01/21/2024 13:27
[2024-01-21 10:36] LABS: Alanine Aminotransferase 28 U/L (14-59); Albumin Globulin Ratio 0.9; Albumin Level 3.7 g/dL (3.4-5.0); Alkaline Phosphatase 71 U/L (46-116); Anion Gap 13.5; Aspartate Amino Transferase 26 U/L (15-37); BUN Creatinine Ratio 17.8; Bilirubin Total 0.3 mg/dL (0.2-1.0); Calcium 9.3 mg/dL (8.5-10.1); Carbon Dioxide 29.3 mmol/L (21.0-32.0); Chloride 102 mmol/L (98-107); Estimated GFR (African America >60 (>=60); Estimated GFR (Non-African Ame >60 (>=60); Globulin 4.1 g/dL; Glucose 93 mg/dL (74-106); Potassium 3.8 mmol/L (3.5-5.1); Sodium 141 mmol/L (136-145); Thyroid Stimulating Hormone 2.027 uIU/mL (0.358-3.740); Total Protein 7.8 g/dL (6.4-8.2)
[2024-01-21 11:34] VITALS: BP 144/80; PULSE 78; TEMP 36.7; O2SAT 98
[2024-01-21] MEDS: DENOSUMAB 60 MG/ML SYRINGE SUBQ (12:13)
== END 2024-01-21 09:04 | disposition home or self-care (01) ==
PROVIDERS: PCP Internal Medicine; Visit Provider Internal Medicine
DX: G31.84 Mild cognitive impairment of uncertain or unknown etiology (principal); I10 Essential (primary) hypertension; R53.83 Other fatigue; M81.0 Age-related osteoporosis without current pathological fracture; E55.9 Vitamin D deficiency, unspecified; D64.9 Anemia, unspecified; M25.511 Pain in right shoulder; S22.31XA Fracture of one rib, right side, initial encounter for closed fracture
CPT/HCPCS: 36415; 70551; 73030; 80053; 82306; 82607; 82728; 82746; 83540; 83550; 84443; 85025; 96372; J0897

== ENCOUNTER 2025-01-24 11:59 | Outpatient (OUT) | payer MEDICARE, OTHER, SELFPAY ==
[2025-01-24 12:53] LABS: Hematocrit 39.3 % (36.0-48.0); Hemoglobin 12.8 g/dL (12.0-16.0); Immature Granulocytes Abs Auto 0.01 10^3/uL (0.00-0.03); Immature Granulocytes Pct Auto 0.2 % (0.0-0.5); Lymphocytes Absolute Auto 1.9 10^3/uL (1.2-3.8); Mean Corpuscular HGB Conc 32.6 g/dL (29.9-35.2); Mean Corpuscular Hemoglobin 31.4 pg (26.7-34.0); Mean Corpuscular Volume 96.3 fL (81.0-99.0); Platelet Count 185 10^3/uL (150-450); Red Blood Count 4.08 10^6/uL (4.20-5.40); White Blood Count 4.8 10^3/uL (4.0-11.0)
[2025-01-24 13:19] LABS: Alanine Aminotransferase 26 U/L (14-59); Albumin Globulin Ratio 1.0; Albumin Level 4.0 g/dL (3.4-5.0); Alkaline Phosphatase 60 U/L (46-116); Anion Gap 8.2; Aspartate Amino Transferase 22 U/L (15-37); Blood Urea Nitrogen 17.0 mg/dL (7.0-18.0); Calcium 9.3 mg/dL (8.5-10.1); Carbon Dioxide 31.7 mmol/L (21.0-32.0); Chloride 104 mmol/L (98-107); Estimated GFR (African America >60 (>=60 mL/min/1.73m^2); Estimated GFR (Non-African Ame >60 (>=60 mL/min/1.73m^2); Globulin 4.2 g/dL; Glucose 94 mg/dL (74-106); Potassium 3.9 mmol/L (3.5-5.1); Sodium 140 mmol/L (136-145); Total Protein 8.2 g/dL (6.4-8.2)
== END 2025-01-24 12:00 | disposition home or self-care (01) ==
LOC: LAB 12:02
PROVIDERS: PCP Internal Medicine; Visit Provider Internal Medicine
DX: E55.9 Vitamin D deficiency, unspecified (principal); M81.0 Age-related osteoporosis without current pathological fracture; I10 Essential (primary) hypertension; R53.83 Other fatigue
CPT/HCPCS: 36415; 80053; 82306; 85025

== ENCOUNTER 2025-02-01 07:56 | Outpatient (RCR) | payer MEDICARE, OTHER, SELFPAY ==
[2025-02-01 15:16] VITALS: BP 113/75; PULSE 78; TEMP 36.7; O2SAT 95
[2025-02-01] MEDS: DENOSUMAB 60 MG/ML SYRINGE SUBQ (15:46)
== END 2025-02-19 23:59 | disposition home or self-care (01) ==
LOC: INF 07:56
PROVIDERS: PCP Internal Medicine; Visit Provider Internal Medicine
DX: M81.0 Age-related osteoporosis without current pathological fracture (principal)
CPT/HCPCS: 96372; J0897